=== PATIENT | female | born 1945 | race Caucasian/White ===

== ENCOUNTER 2019-10-16 13:40 | Outpatient (CLI) | payer MEDICARE, SELFPAY ==
--- NOTE | ~2019-10-16 | CT_ITS ---
EXAMINATION: CT abdomen pelvis w con DATE: 10/16/2019 14:36 INDICATION: Low abdominal pain for months TECHNIQUE: Computed tomography (CT) of the abdomen and pelvis was performed with 100 cc Omnipaque 350 intravenous contrast. Automated exposure control and iterative reconstruction technique were employe d. Exam dose: 619.06 mGy-cm total exam DLP. COMPARISON: 11/26/2011 CT abdomen pelvis FINDINGS: There is focal peripheral bronchiectasis at the lateral base of the lingula. The lung bases are clear of infiltrate or consolidation. Fat-containing small medial right diaphragmatic Bochdalek hernia. Normal heart size. No pericardial or pleural effusion. Hepatic steatosis. No hepatic, splenic, pancreatic, adrenal or renal space-occupying mass lesion is d etected. Normal caliber of the abdominal aorta. No intraperitoneal or retroperitoneal or pelvic mass lesion or adenopathy or ascites. Normal appendix. No bowel obstruction, bowel wall thickening, pneumatosis or intraperitoneal free air. There is divert iculosis of the sigmoid colon; no CT evidence of diverticulitis. Normal caliber of the abdominal aorta. No intraperitoneal or retroperitoneal or pelvic mass lesion or adenopathy or ascites. Retroverted uterus. Urinary bladder is unremarkable. There is severe degenerative disease at L2-3, L4-5 and L5-S1 and moderate degenerative disease at L3- 4. IMPRESSION: Hepatic steatosis Diverticulosis of the sigmoid colon; no CT evidence of diverticulitis Reviewed, dictated and finalized at Location A. Reviewed, dictated and finalized at location A.
[2019-10-16 14:28] LABS: Estimated Glomerular Filt Rate > 60
== END 2019-10-16 13:41 | disposition home or self-care (01) ==
PROVIDERS: PCP Family Medicine; Visit Provider Physician Assistant
DX: R10.9 Unspecified abdominal pain (principal); R19.7 Diarrhea, unspecified; K76.0 Fatty (change of) liver, not elsewhere classified; K57.90 Diverticulosis of intestine, part unspecified, without perforation or abscess without bleeding
CPT/HCPCS: 36415; 74177; Q9967

== ENCOUNTER 2020-01-16 14:45 | Emergency (ER) | payer MEDICARE, SELFPAY ==
--- NOTE | ~2020-01-16 | CT_ITS ---
EXAMINATION: CT brain wo con DATE: 01/16/2020 15:52 INDICATION: Head injury. Headache. TECHNIQUE: Computed tomography (CT) of the head was performed without intravenous contrast. The mA wa s adjusted according to patient size. Iterative reconstruction technique was employed. The dose-lengt h product was 605.33 mGy-cm. COMPARISON: None FINDINGS: There is no intracranial hemorrhage, acute infarction, or abnormal intracranial mass lesion . The ventricles are normal in size. There is mild mucosal thickening in the paranasal sinuses. The o rbits are normal. The mastoid air cells are normal. IMPRESSION: 1. Normal brain. Reviewed, dictated and finalized at location B. LEAF READER IMPRESSION: 1. Normal brain.
[2020-01-16 14:54] VITALS: BP 130/78; PULSE 65; RESP 18; TEMP 35.8; O2SAT 99
--- NOTE | 2020-01-16 15:03 | PC.NURSE ---
Addendum entered by Lobo Kellogg RN 01/16/20 15:04: Isidro Garrett RN, made aware of order for head CT. Pt returns to waiting room pending open room. Original Note: Spoke with Dr. Schreiber regarding patient complaint of worsening headache after striking head in a fall on wednesday. Verbal order received for head CT received.
--- NOTE | 2020-01-16 18:35 | ED.GENADULT ---
HPI - General Adult General Chief complaint: Headache Stated complaint: fall, head injury Time Seen by Provider: 01/16/20 18:31 Source: RN notes reviewed History of Present Illness HPI narrative: Patient presents to emergency department from home for headache. Patient states that 3 days ago she fell coming down the stairs striking her left forehead on the door frame. States she did not have any loss of consciousness at that time but did have swelling ecchymosis to left forehead that is since moved down to around her left eye. States today she began to develop mild frontal headache became concerned since she had fallen and came to the ED for further evaluation. She states her headache is currently a 2 out of 10 to take ibuprofen or Aleve for the headache she denies any neck pain denies any vision changes numbness or tingling in extremities or any other symptoms. Patient states she does take a baby aspirin a day but denies any other blood thinner use patient states she is concerned she could have intracranial hemorrhage and also brought her to the emergency department Related Data Home Medications Medication Instructions Recorded Confirmed alendronate 70 mg tablet 70 mg PO WEEKLY 07/24/19 11/27/19 aspirin 81 mg tablet,delayed 81 mg PO DAILY 07/24/19 11/27/19 release cholecalciferol (vitamin D3) 50 50 mcg PO DAILY 07/24/19 11/27/19 mcg (2,000 unit) capsule multivitamin 1 tablet PO DAILY 07/24/19 11/27/19 Allergies Allergy/AdvReac Type Severity Reaction Status Date / Time montelukast Allergy Unknown Nausea Verified 01/16/20 18:29 prednisone Allergy Unknown Flush Verified 01/16/20 18:29 purple rxn Review of Systems Review of Systems: Narrative: Gen.: Denies fevers or chills Eyes: Denies eye pain or visual change ENT: Denies congestion Respiratory: Denies shortness of breath or cough CV: Denies chest pain or palpitations GI: Denies abdominal pain nausea, emesis or diarrhea denies burning, urgency, frequency or hematuria Musculoskeletal: Denies back pain or muscle pain Neuro: Denies numbness, tingling, reports headache Skin: Denies rash Except as documented, all other systems reviewed and negative PMFSH Past Medical History Medical History (Updated 01/16/20 @ 18:38 by Alex Macias DO) Hypothyroidism (acquired) Surgical History Surgical History H/O breast biopsy Hx of tubal ligation Family History Family History Father Hypertension Mother Hypertension Grandparent Cerebrovascular accident Carcinoma of colon, Onset Age: 58 Social History Social History Smoking status: Never smoker Alcohol intake: never Gender identity (if verbalized by the patient): Female Exam Narrative: Exam Narrative: APPEARANCE: No acute distress, nontoxic, resting in bed EYES: EOMI, PERRL HEENT: Normocephalic, mild swelling ecchymosis over the left forehead over the eyebrow with mild ecchymosis in the inferior and superior orbit nontender to palpation, no step-off, TMs clear bilaterally nares patent oromucosa moist Neck: Supple, nontender to palpation full range of motion without pain RESPIRATORY: No respiratory distress Clear to auscultation bilaterally with no rhonchi wheezing or rales. CARDIOVASCULAR: Regular rate and rhythm without murmurs rubs or gallops. ABDOMINAL: Soft, nontender, nondistended, no rebound or guarding MUSCULOSKELETAl: Moves all extremities. No clubbing, cyanosis or edema. NEURO: Awake and alert x 4. Following commands, speech normal, no focal deficits SKIN:: Warm, dry. No rashes lesions or abrasions PSYCHIATRIC: Normal affect/mood, Course Course Emergency Course: Discussed with patient results of workup and diagnosis. Discussed need for follow-up with primary care, proper use of medication, and reasons to return
[2020-01-16] MEDS: ACETAMINOPHEN 500 MG TABLET 1000 MG PO (18:50)
[2020-01-16 18:58] VITALS: BP 127/70; PULSE 70; RESP 12; O2SAT 99
== END 2020-01-16 18:58 | disposition home or self-care (01) ==
LOC: ANHED 18:41
PROVIDERS: Emergency Provider Emergency Medicine; PCP Family Medicine
DX: S00.83XA Contusion of other part of head, initial encounter (principal); E03.9 Hypothyroidism, unspecified; W10.9XXA Fall (on) (from) unspecified stairs and steps, initial encounter
CPT/HCPCS: 70450; 99284; A9270

== ENCOUNTER 2020-02-27 08:35 | Outpatient (NON) | payer MEDICARE, SELFPAY ==
[2020-02-27 18:19] LABS: SARS-CoV-2 RNA PCR Negative
== END 2020-02-27 08:36 ==
PROVIDERS: PCP Family Medicine; Visit Provider Family Medicine
DX: R53.83 Other fatigue (principal); R51.9 Headache, unspecified; Z20.828 Contact with and (suspected) exposure to other viral communicable diseases
CPT/HCPCS: 87635; C9803; U0003

== ENCOUNTER 2020-04-16 15:53 | Outpatient (CLI) | payer MEDICARE, SELFPAY ==
--- NOTE | ~2020-04-16 | MM_ITS ---
EXAMINATION: MM screening sandy BI w natalia HISTORY: Screening mammogram TECHNIQUE: Craniocaudal and mediolateral oblique 3-D tomosynthesis images were obtained and synthetic 2-D images were generated. CAD analysis was submitted and interpreted. COMPARISON: 03/13/2019, 02/08/2018, 12/03/2016 bilateral digital screening mammogram examinations BREAST PARENCHYMAL COMPOSITION: There are scattered areas of fibroglandular density. FINDINGS: There is a biopsy marker on the right. History of prior bilateral benign breast biopsies. T here is no evidence of suspicious mass, calcification, or architectural distortion to suggest maligna ncy in either breast. There has been no suspicious interval change. IMPRESSION: 1. No mammographic evidence of malignancy. 2. Recommend routine screening mammography in one year. BI-RADS Category 1: Negative...... Reviewed, dictated and finalized at location A. TROTYPER
== END 2020-04-16 15:54 | disposition home or self-care (01) ==
PROVIDERS: Family Provider Family Medicine; PCP Family Medicine; Visit Provider Physician Assistant
DX: Z12.31 Encounter for screening mammogram for malignant neoplasm of breast (principal)
CPT/HCPCS: 77063; 77067

== ENCOUNTER → 2021-01-22 02:33 | Outpatient (CLI) | payer MEDICARE, SELFPAY ==
[2021-01-22 18:47] LABS: SARS-CoV-2 RNA PCR Negative
== END ==
PROVIDERS: PCP Family Medicine; Visit Provider Family Medicine
DX: R05.9 Cough, unspecified (principal); Z20.822 Contact with and (suspected) exposure to COVID-19
CPT/HCPCS: C9803; U0003; U0005

== ENCOUNTER 2021-01-24 10:02 | Emergency (ER) | payer MEDICARE, SELFPAY ==
--- NOTE | ~2021-01-24 | XR_ITS ---
EXAMINATION: XR chest 2V DATE: 01/24/2021 10:22 INDICATION: Cough and wheezing and shortness of breath. TECHNIQUE: Frontal and lateral views of the chest were obtained. COMPARISON: Chest 2 views 03/01/2017, CT abdomen and pelvis 10/16/2019 FINDINGS: There is chronic mild scarring at the lung apices. No pleural effusion or pneumothorax. The heart size is normal. There are prominent paracardial fat pads. IMPRESSION: 1. Stable mild scarring at the lung apices. Reviewed, dictated and finalized at location A. TAIN BRUSH ASSEMBLER
--- NOTE | 2021-01-24 10:04 | ED.URI ---
HPI - URI/Sore Throat General Chief Complaint: Upper Respiratory Infection Stated Complaint: cough/wheezing Time Seen by Provider: 01/24/21 10:10 Source: patient, RN notes reviewed and old records reviewed Mode of arrival: ambulatory Limitations: no limitations History of Present Illness HPI Narrative: 75-year-old female presents to the [facility] with complaints of cough, wheezing and chest congestion since Wednesday, 5 days ago. States has had the same. Has had a history of bronchitis and pneumonia. Denies chest pain or abdominal pain. Reports taking ibuprofen 1 time yesterday. No other treatment prior to arrival. Denies taking her blood pressure medication today. Discussed with patient she needs to follow-up with her primary for blood pressure check in today medication daily. MD elicited complaint: cough Related Data Home Medications Medication Instructions Recorded Confirmed alendronate 70 mg tablet 70 mg PO WEEKLY 07/24/19 01/24/21 aspirin 81 mg tablet,delayed 81 mg PO DAILY 07/24/19 01/24/21 release cholecalciferol (vitamin D3) 50 50 mcg PO DAILY 07/24/19 01/24/21 mcg (2,000 unit) capsule multivitamin 1 tablet PO DAILY 07/24/19 01/24/21 levothyroxine 100 mcg PO DAILY 01/24/21 01/24/21 Allergies Allergy/AdvReac Type Severity Reaction Status Date / Time montelukast Allergy Unknown Nausea Verified 11/25/20 09:22 prednisone Allergy Unknown Flush Verified 11/25/20 09:22 purple rxn Review of Systems Review of Systems: All systems reviewed & are unremarkable except as noted in HPI and below Constitutional: Constitutional: Reports no additional constitutional complaints Eyes: Eyes: Reports no additional eye complaints ENT: Reports system reviewed and no additional complaints, except as documented and Denies sore throat Cardiovascular: Cardiovascular: Reports no additional cardiovascular complaints, Denies chest pain, Denies rapid heart rate, Denies radiating jaw, neck or arm pain and Denies slow heart rate Respiratory: Respiratory: Reports as per HPI, Reports cough, Reports dyspnea and Reports wheezing Gastrointestinal: Gastrointestinal: Reports no additional gastrointestinal complaints, Denies abdominal pain, Denies nausea and Denies vomiting Musculoskeletal: Musculoskeletal: Reports no additional musculoskeletal complaints Integumentary/Breasts: Skin/Breast: Reports system reviewed and no additional complaints, except as docu Neurologic: Reports system reviewed and no additional complaints, except as documented Psychiatric: Psychiatric: Reports no additional psychiatric complaints Allergic/Immunologic: Allergic/Immunologic: Reports no additional allergic/immunologic complaints PMFSH Past Medical History Medical History (Updated 01/24/21 @ 10:52 by Effie Orosco) Essential (primary) hypertension Gastro-esophageal reflux disease without esophagitis Hypothyroidism (acquired) Vitamin D deficiency, unspecified Surgical History Surgical History H/O breast biopsy Hx of tubal ligation Family History Family History Father Hypertension Mother Hypertension Grandparent Cerebrovascular accident Carcinoma of colon, Onset Age: 58 Social History Social History Alcohol intake: never Gender identity (if verbalized by the patient): Female Comments At the time of my signature, I reviewed and agree with the nursing past medical, surgical, social, and family history. There is no relevant family history pertinent to the patient complaint. Exam Const: General: alert and ill appearing acutely Nutritional Appearance: well nourished Orientation/consciousness: patient oriented x3 Limitations: no limitations HENMT: Head: normal to inspection Eyes: Pupils: Equal, round and reactive pupils present Neck: Neck: normal visual ins
[2021-01-24 10:12] VITALS: BP 152/90; PULSE 102; RESP 16; TEMP 36.3; O2SAT 97
== END 2021-01-24 11:03 | disposition home or self-care (01) ==
PROVIDERS: Emergency Provider Nurse Practitioner; PCP Family Medicine
DX: J40 Bronchitis, not specified as acute or chronic (principal); I10 Essential (primary) hypertension; K21.9 Gastro-esophageal reflux disease without esophagitis; E03.9 Hypothyroidism, unspecified; E55.9 Vitamin D deficiency, unspecified; Z79.82 Long term (current) use of aspirin
CPT/HCPCS: 71046; 99213; G0463

== ENCOUNTER → 2021-03-05 02:28 | Outpatient (CLI) | payer MEDICARE, SELFPAY ==
[2021-03-06 02:21] LABS: SARS-CoV-2 RNA PCR Negative
== END ==
PROVIDERS: PCP Family Medicine; Visit Provider Physician Assistant Medical
DX: R05.9 Cough, unspecified (principal); R09.89 Other specified symptoms and signs involving the circulatory and respiratory systems; J02.9 Acute pharyngitis, unspecified; Z20.822 Contact with and (suspected) exposure to COVID-19
CPT/HCPCS: C9803; U0003; U0005

== ENCOUNTER 2021-03-13 10:23 | Emergency (ER) | payer MEDICARE, SELFPAY ==
[2021-03-13] VITALS (10 sets, daily range): BP systolic 139–149; BP diastolic 84–94; PULSE 47–87; RESP 11–25; TEMP 35.9; O2SAT 96–100
--- NOTE | ~2021-03-13 | CT_ITS ---
EXAMINATION: CTA chest PE protocol DATE: 03/13/2021 14:43 INDICATION: Chest tightness, shortness of breath. Elevated d-dimer. TECHNIQUE: Computed tomography angiography (CTA) of the chest was performed with 100 mL Omnipaque-350 intravenous contrast timed to evaluate the pulmonary arteries. Coronal maximum intensity projection 3D-reconstructions were created by the technologist. Automated exposure control and iterative reconst ruction technique were employed. Exam dose: 445.66 mGy-cm total exam DLP. COMPARISON: 03/13/2021 2 view chest FINDINGS: There is diagnostic contrast enhancement of the pulmonary arteries and no evidence of pulmo nary embolism. No thoracic aortic aneurysm or dissection. There is aortic and mild great vessel calcification. No hilar or mediastinal mass lesion or lymphadenopathy is detected. Normal heart size. No pericardial or pleural effusion. Bilateral apical scarring. Mild bilateral lower lobe dependent atelectasis. No pulmonary consolidatio n or mass lesion is evident. Small posteromedial right fat-containing foramen of Bochdalek hernia. Multilevel degenerative disc disease of the cervical spine including severe degenerative disc disease at C4-5 and C5-6 and moderately severe degenerative disc disease at C6-7. Diffuse osteopenia. IMPRESSION: No evidence of pulmonary embolism Reviewed, dictated and finalized at Location A. Reviewed, dictated and finalized at location A. ULTING NETWORKING ENGINEER
--- NOTE | ~2021-03-13 | XR_ITS ---
EXAMINATION: XR chest 2V DATE: 03/13/2021 11:40 INDICATION: Shortness of breath, cough and congestion TECHNIQUE: PA and lateral views of the chest were obtained. COMPARISON: Chest radiograph dated 01/24/2021 FINDINGS: Unchanged mild biapical pleural-parenchymal scarring. Minimal lingular atelectasis along side a small left paracardial fat pad. No new airspace opacities, pulmonary edema, pleural effusion or pneumothor ax. The cardiomediastinal silhouette is normal. Mild thoracic spondylosis. IMPRESSION: 1. No acute cardiopulmonary disease. Reviewed, dictated and finalized at location B. ARDER OPERATOR
--- NOTE | 2021-03-13 10:27 | ECG_ITS ---
Measurements Intervals [place] Rate: 63 P: 75 MA: 228 QRS: 5 QRSD: 66 T: 47 QT: 395 QTc: 406 Interpretive Statements SINUS RHYTHM WITH SINUS ARRHYTHMIA WITH FIRST DEGREE AV BLOCK LOW QRS VOLTAGE IN PRECORDIAL LEADS BORDERLINE R WAVE PROGRESSION, ANTERIOR LEADS INFERIOR INFARCT, AGE INDETERMINATE BASELINE ARTIFACT- I, II, AVR ABNORMAL ECG Electronically Signed On 03-13-2021 11:04:45 BARKEEPER by Junior Gill D.O.
--- NOTE | 2021-03-13 10:46 | PC.NURSE ---
Per vorb from Dr. Bach, no cardiac panel needed at this time. VORB, cxr, cbc, cmp, blood cult x 2 , abg on room air.
[2021-03-13 11:21] LABS: Basophils Absolute Auto 0.1 K/mm3 (0.0-0.1); Basophils Percent Auto 0.8 % (0.2-1.2); Eosinophils Absolute Auto 0.2 K/mm3 (0-0.3); Eosinophils Percent Auto 3.2 % (0-4.4); Hemoglobin 14.7 g/dL (12.0-15.0); Immature Granulocyte Absolute 0.02 K/mm3 (0.00-0.031); Immature Granulocyte Percent A 0.3 % (0-0.5); Lymphocytes Absolute Auto 1.54 K/mm3 (0.9-3.2); Lymphocytes Percent Auto 26.1 % (18.3-44.2); Mean Corpuscular HGB Conc 32.7 g/dl (32-36); Mean Corpuscular Hemoglobin 32.2 pg (26-34); Mean Corpuscular Volume 98.7 fl (80-100); Mean Platelet Volume 9.5 fl (7.4-10.4); Monocytes Absolute Auto 0.7 K/mm3 (0.1-0.6); Monocytes Percent Auto 12.4 % (2.6-8.5); Neutrophils Absolute Auto 3.4 K/mm3 (1.3-6.7); Neutrophils Percent Auto 57.2 % (45.5-73.1); Platelet Count Result 267 k/mm3 (150-375); Red Blood Count 4.56 M/mm3 (4.2-5.4); Red Cell Distribution Width 12.1 % (11.5-14.5); White Blood Count 5.9 K/mm3 (4.5-10.0)
[2021-03-13 11:29] LABS: Base Excess ABG -3.6 mEq/l (+/-2.0); Carboxyhemoglobin 0.3 % THb (0-2.0); Device ROOM AIR; Fractional Inspired Oxygen 21 %; HCO3 ABG 19.8 mEq/l (22.0-26.0); Methemoglobin ABG 0.1 %THb (0-1.5); Modified Allen's Test Pass; Oxygen Content ABG 19.8 %vol (16.0-22.0); Oxygen Saturation ABG 95.1 % (95.0-100.0); Oxyhemoglobin 93.4 % THb (90.0-100.0); PCO2 ABG 31.6 mmHg (35.0-45.0); PO2 ABG 72.9 mmHg (80.0-100.0); PO2 FiO2 Ratio Arterial Blood 3.47 %; Reduced Hemoglobin 6.2 %THb (0-5.0); Site Drawn RIGHT RADIAL; Total Hemoglobin 15.1 g/dL (12.0-18.0); pH ABG 7.415 (7.350-7.450)
[2021-03-13 11:32] LABS: Alanine Aminotransferase 23 U/L (4-35); Albumin Level 4.2 g/dL (3.5-5.1); Alkaline Phosphatase 106 U/L (38-126); Anion Gap 14 mmol/L (8-16); Aspartate Amino Transferase 26 U/L (14-36); Bilirubin,Total 0.7 mg/dL (0.2-1.3); Blood Urea Nitrogen 18 mg/dL (7-17); Calcium 9.6 mg/dL (8.4-10.2); Carbon Dioxide 20 mmol/L (22-30); Chloride 105 mmol/L (98-107); Estimated CRCL calculation 45 ml/min; Estimated Glomerular Filt Rate 54; Glucose 133 mg/dL (65-110); Potassium 3.6 mmol/L (3.4-5.0); Sodium 139 mmol/L (137-145)
--- NOTE | 2021-03-13 12:28 | ED.SOB ---
HPI - SOB/Dyspnea General Chief Complaint: Shortness of Breath/Dyspnea Stated Complaint: Shortness of breath, chest tightness Time Seen by Provider: 03/13/21 11:57 Source: patient, RN notes reviewed and old records reviewed Mode of arrival: ambulatory Limitations: no limitations History of Present Illness HPI Narrative: This is a 75 year old female with history of hypertension who presents for evaluation of cough and shortness of breath. She developed dry cough on March 04. She was tested for covid on March 05 and it was negative. She initially felt better but she started to feel sick again on March 08. She reports her doctor prescribed Levaquin 750 mg and inhaler on 03/08/21. She felt well yesterday and her states she may have overworked yesterday. This morning she is having worsening dry cough, upper back discomfort and shortness of breath. Her upper back discomfort that is intermittent. She does not know any alleviating or exacerbating factors. She denies nausea, vomiting, fever, or chills. She denies sick contacts. She reports intermittent chest tightness. Related Data Home Medications Medication Instructions Recorded Confirmed alendronate 70 mg tablet 70 mg PO WEEKLY 07/24/19 01/24/21 aspirin 81 mg tablet,delayed 81 mg PO DAILY 07/24/19 01/24/21 release cholecalciferol (vitamin D3) 50 50 mcg PO DAILY 07/24/19 01/24/21 mcg (2,000 unit) capsule multivitamin 1 tablet PO DAILY 07/24/19 01/24/21 levothyroxine 100 mcg PO DAILY 01/24/21 01/24/21 Allergies Allergy/AdvReac Type Severity Reaction Status Date / Time montelukast Allergy Unknown Nausea Verified 11/25/20 09:22 prednisone Allergy Unknown Flush Verified 11/25/20 09:22 purple rxn Review of Systems Review of Systems: All systems reviewed & are unremarkable except as noted in HPI and below PMFSH Past Medical History Medical History (Updated 03/13/21 @ 15:34 by Karen Walters MD) Essential (primary) hypertension Gastro-esophageal reflux disease without esophagitis Hypothyroidism (acquired) Vitamin D deficiency, unspecified Surgical History Surgical History H/O breast biopsy Hx of tubal ligation Family History Family History Father Hypertension Mother Hypertension Grandparent Cerebrovascular accident Carcinoma of colon, Onset Age: 58 Social History Social History Alcohol intake: never Gender identity (if verbalized by the patient): Female Exam Const: General: no acute distress and alert Orientation/consciousness: patient oriented x3 Eyes: EOM: EOMs intact bilaterally Chest: Chest palpation & inspection: normal inspection of the chest Resp: Effort & Inspection: normal respiratory effort and no retractions Auscultation: clear to auscultation bilaterally Cardio: Rate: regular rate Rhythm: regular rhythm Heart sounds: no murmurs GI: GI Palp: Yes Soft to palpation, No Tenderness to palpation present (GI) and No Guarding due to palpation present (GI) Auscultation: normal bowel sounds Skin: General skin exam: normal color Rashes: no rashes Neuro: General: patient oriented x3, moves all extremities and CN's II-XI intact bilaterally Psych: Mental Status: mental status grossly normal Affect: normal affect Course Reevaluation(s) Reevaluation #1: I discussed with patient labs and CT . No NM or PE or pneumonia. She will continue symptomatic treatment Date: 03/13/21 Time: 15:27 Vital Signs Vital signs: Vital Signs Temperature 96.7 F L 03/13/21 10:27 Pulse Rate 79 03/13/21 10:27 Respiratory Rate 22 H 03/13/21 10:27 Blood Pressure 149/89 H 03/13/21 10:27 Pulse Oximetry 100 03/13/21 10:27 Temperature 96.7 F L 03/13/21 10:27 Pulse Rate 84 03/13/21 15:55 Respiratory Rate 15 03/13/21 15:55 Blood Pressu
[2021-03-13 13:42] LABS: Troponin I < 0.012 ng/mL (0.000-0.034)
[2021-03-13 14:00] LABS: SARS-CoV-2 RNA PCR Negative
[2021-03-13 14:21] LABS: D Dimer 0.51 ug/mL (<0.48)
== END 2021-03-13 15:57 | disposition home or self-care (01) ==
PROVIDERS: Emergency Medicine; Emergency Provider General Practice; PCP Family Medicine
DX: R05.9 Cough, unspecified (principal); R06.00 Dyspnea, unspecified; Z20.822 Contact with and (suspected) exposure to COVID-19; I10 Essential (primary) hypertension; K21.9 Gastro-esophageal reflux disease without esophagitis; E03.9 Hypothyroidism, unspecified; E55.9 Vitamin D deficiency, unspecified; R94.31 Abnormal electrocardiogram [ECG] [EKG]
CPT/HCPCS: 36415; 36600; 71046; 71275; 80053; 82375; 82805; 83050; 84484; 85025; 85380; 87040; 87804; 93005; 99284; C9803; Q9967; U0003; U0005

== ENCOUNTER → 2021-05-14 14:07 | Outpatient (CLI) | payer MEDICARE, SELFPAY ==
--- NOTE | ~2021-05-14 | MM_ITS ---
EXAMINATION: MM screening sandy BI w natalia HISTORY: Screening TECHNIQUE: Craniocaudal and mediolateral oblique 3-D tomosynthesis images were obtained and synthetic 2-D images were generated. CAD analysis was submitted and interpreted. COMPARISON: Comparison to multiple prior studies sequentially, with oldest reviewed study dated 11/05. BREAST PARENCHYMAL COMPOSITION: There are scattered areas of fibroglandular density. FINDINGS: There is no evidence of suspicious mass, calcification, or architectural distortion to sugg est malignancy in either breast. There has been no suspicious interval change. IMPRESSION: 1. No mammographic evidence of malignancy. 2. Recommend routine screening mammography in one year. BI-RADS Category 1: Negative Reviewed, dictated and finalized at location A. NESS SOLUTIONS ANALYST
== END ==
PROVIDERS: PCP Physician Assistant; Visit Provider Physician Assistant
DX: Z12.31 Encounter for screening mammogram for malignant neoplasm of breast (principal)
CPT/HCPCS: 77063; 77067

== ENCOUNTER → 2021-05-20 14:36 | Outpatient (CLI) | payer MEDICARE, SELFPAY ==
--- NOTE | ~2021-05-20 | XR_ITS ---
EXAMINATION: XR shoulder RT min 2V DATE: 05/20/2021 14:56 INDICATION: Right shoulder pain TECHNIQUE: AP internally and externally rotated, AP oblique externally rotated and axillary views of the right shoulder were obtained. COMPARISON: None FINDINGS: Normal alignment. No fracture. Glenohumeral joint is normal. Moderate acromioclavicular osteoarthrit is. Small focus of amorphous calcification along the posterior aspect of the greater tuberosity consi stent with calcific tendinitis likely of the posterior infraspinatus tendon. Soft tissues are unremar kable. Right apical pleural-parenchymal scarring. Increased interstitial pattern at the right lower l riddhi zone suspicious for mild pulmonary edema with differential including atelectasis or pneumonia. IMPRESSION: 1. Small focus of calcific tendinitis of the distal right infraspinatus tendon. 2. Interstitial opacities at the right lung base which could represent mild pulmonary edema, atelecta sis or pneumonia. Reviewed, dictated and finalized at location A. IMPRESSION: 1. Small focus of calcific tendinitis of the distal right infraspinatus tendon. 2. Interstitial opacities at the right lung base which could represent mild pul monary edema, atelectasis or pneumonia.
--- NOTE | ~2021-05-20 | XR_ITS ---
XR_CERV2-3V_CR DATE: 05/20/2021 15:16 INDICATION: Right shoulder pain TECHNIQUE: Standing AP, lateral, swimmer's, open-mouth views COMPARISON: None FINDINGS: C1 and C2 are normally aligned and the odontoid process is intact. There is mild degenerative disc disease at C2-3. There is 3 mm anterolisthesis at C3-4. There is severe degenerative disc disease at C4-5, C5-6 and moderately prominent degenerative disc di sease at C6-7. There is prominent uncovertebral joint spurring from C4-5 through C6-7. No fracture or dislocation, locked facet or prevertebral soft tissue swelling is detected. IMPRESSION: 3 mm anterolisthesis C3-4 Multilevel degenerative disc disease, most severe at C4-5 and C5-6 Uncovertebral joint spurring in the mid and lower cervical spine Reviewed, dictated and finalized at Location A. Reviewed, dictated and finalized at location A.
== END ==
PROVIDERS: Visit Provider Physician Assistant
DX: M25.511 Pain in right shoulder (principal); M43.12 Spondylolisthesis, cervical region; M50.322 Other cervical disc degeneration at C5-C6 level; M77.8 Other enthesopathies, not elsewhere classified; M65.811 Other synovitis and tenosynovitis, right shoulder; R91.8 Other nonspecific abnormal finding of lung field
CPT/HCPCS: 72040; 73030

== ENCOUNTER → 2021-06-18 11:55 | Outpatient (CLI) | payer MEDICARE, SELFPAY ==
--- NOTE | ~2021-06-18 | XR_ITS ---
EXAMINATION: XR chest 2V DATE: 06/18/2021 12:17 INDICATION: Atelectasis. Cough. TECHNIQUE: Frontal and lateral views of the chest were obtained. COMPARISON: Chest 2 views 03/13/21, chest CT 03/13/2021 FINDINGS: There is mild scarring at the lung apices. There is mild atelectasis in lingula. No pleural effusion or pneumothorax. The heart size is normal. There are prominent paracardial fat pads. IMPRESSION: 1. Mild atelectasis in lingula and stable mild scarring at the lung apices. Reviewed, dictated and finalized at location A.
== END ==
PROVIDERS: Visit Provider Physician Assistant
DX: J98.11 Atelectasis (principal)
CPT/HCPCS: 71046

== ENCOUNTER 2021-06-27 01:06 | Day surgery (SDC) | payer MEDICARE, SELFPAY ==
[2021-06-11 14:50] VITALS: BMI 28.3
[2021-06-27 08:18] VITALS: BP 122/81; PULSE 85; RESP 18; TEMP 35.7; O2SAT 97; BMI 29.2
[2021-06-27] MEDS: LACTATED RINGERS 1,000 ML 150 ML IV CONT (08:40)
--- NOTE | 2021-06-27 08:44 | WPDGICN ---
Assessment and Plan Assessment and plan (1) History of colon polyps: Code(s): Z86.010 - Personal history of colonic polyps Status: Acute Assessment and Plan: Patient has a distant history of colon polyps. Plan is for surveillance colonoscopy at intervals in the future. Further recommendations will be given after colonoscopy. GI Consult Note Consult date/time: 06/27/21 08:44 HPI: Merissa Burciaga is a 76 year old female Presents for screening colonoscopy. Patient has a distant history of colon polyps. She reports that her current weight appetite and bowel movements are normal. She denies abdominal pain. She has had no bleeding. Family history is Significant a grandparent had colon cancer.. Patient presents today for neoplasia screening colonoscopy. Review of Systems Review of Systems: All systems reviewed & are unremarkable except as noted in HPI and below PMFSH Past Medical History Medical History Essential (primary) hypertension Gastro-esophageal reflux disease without esophagitis Vitamin D deficiency, unspecified Surgical History Surgical History H/O breast biopsy Hx of tubal ligation Family History Family History Father Hypertension Mother Hypertension Grandparent Cerebrovascular accident Carcinoma of colon, Onset Age: 60 Social History Social History Smoking status: Never smoker Alcohol intake: current Drinks per week: 1 Substance use type: does not use Living arrangements: alone Gender identity (if verbalized by the patient): Female Spiritual care concerns: No Meds Home Medications and Allergies Home Medications Medication Instructions Recorded Confirmed Type cholecalciferol (vitamin D3) 50 50 mcg PO DAILY 07/24/19 06/27/21 History mcg (2,000 unit) capsule multivitamin 1 tablet PO DAILY 07/24/19 06/27/21 History atenolol 25 mg tablet 25 mg PO DAILY #90 tablet 08/27/20 06/27/21 Rx atorvastatin 20 mg tablet 20 mg PO DAILY #90 tablet 12/20/20 06/27/21 Rx levothyroxine 100 mcg PO DAILY 01/24/21 06/27/21 History clobetasol 0.05 % topical cream See Rx Instructions .ROUTE 01/25/22 04/22/22 Rx .COMPLEX #15 g fluticasone propionate 50 2 spray INTRANASAL DAILY #50 ml 04/01/21 06/27/21 Rx mcg/actuation nasal spray,suspension cetirizine [Zyrtec] 10 mg PO DAILY 06/11/21 06/27/21 History Allergies Allergy/AdvReac Type Severity Reaction Status Date / Time prednisone Allergy Unknown Flush Verified 06/27/21 08:31 purple rxn Vital Signs Vital Signs - 24 hr 06/27/21 08:18 Temperature 96.3 F L Pulse Rate 85 Respiratory Rate 18 Blood Pressure 122/81 Pulse Oximetry 97 Exam Narrative: Physical exam reveals patient to be alert. Vital signs stable. HEENT exam is unremarkable. Patient is anicteric. Lungs are clear to auscultation and percussion. Heart is without murmur or extra sounds. Abdominal exam bowel sounds present soft nontender with no organomegaly. Digital external rectal exam is normal.
--- NOTE | 2021-06-27 09:14 | P.PNAN_ITS ---
Anes - Initial Pre Proc Eval Procedure: Operation Date: 06/27/21 09:30 Proposed Procedures p Screening Colonoscopy - Shady Owens MD Date/Time: 06/27/21 09:14 Surgeon: Shady Owens MD Pre Op Diagnosis: hx of colon polyps Patient Data Age: 76 Gender: F Height: 1.65 m Weight: 79.6 kg Last Vital Signs Temp 96.3 F L 06/27/21 08:18 Pulse 85 06/27/21 08:18 Resp 18 06/27/21 08:18 BP 122/81 06/27/21 08:18 Pulse Ox 97 06/27/21 08:18 Allergies Allergy/AdvReac Type Severity Reaction Status Date / Time prednisone Allergy Unknown Flush Verified 06/27/21 08:31 purple rxn Home Medications Medication Instructions Recorded Confirmed Type cholecalciferol (vitamin D3) 50 50 mcg PO DAILY 07/24/19 06/27/21 History mcg (2,000 unit) capsule multivitamin 1 tablet PO DAILY 07/24/19 06/27/21 History atenolol 25 mg tablet 25 mg PO DAILY #90 tablet 08/27/20 06/27/21 Rx atorvastatin 20 mg tablet 20 mg PO DAILY #90 tablet 12/20/20 06/27/21 Rx levothyroxine 100 mcg PO DAILY 01/24/21 06/27/21 History clobetasol 0.05 % topical cream See Rx Instructions .ROUTE 04/01/21 06/27/21 Rx .COMPLEX #15 g fluticasone propionate 50 2 spray INTRANASAL DAILY #50 ml 04/01/21 06/27/21 Rx mcg/actuation nasal spray,suspension cetirizine [Zyrtec] 10 mg PO DAILY 06/11/21 06/27/21 History Patient hx anesthesia problems: none Family hx anesthesia problems: none Results Review: All pre-operative results and documents have been reviewed as part of the pre-operative evaluation. [facility] Past Medical History Medical History Essential (primary) hypertension Gastro-esophageal reflux disease without esophagitis Vitamin D deficiency, unspecified Surgical History Surgical History H/O breast biopsy Hx of tubal ligation Family History Family History Father Hypertension Mother Hypertension Grandparent Cerebrovascular accident Carcinoma of colon, Onset Age: 60 Social History Social History Smoking status: Never smoker Alcohol intake: current Drinks per week: 1 Substance use type: does not use Living arrangements: alone Gender identity (if verbalized by the patient): Female Spiritual care concerns: No Anes - Eval Final PreProcedure Day of Procedure 06/27/21 09:14 Patient weight: obese Heart: regular rate and rhythm Lungs: clear to auscultation Airway: Mallampati scale class II Neurological: alert and oriented Last oral intake: >/= 8 hours ASA classification: III Emergent: no Anesthetic plan: proceed Anesthesia type and monitoring: general GIVS and standard monitoring Results Review: All pre-operative results and documents have been reviewed as part of the pre-operative evaluation. Informed Consent: The patient's anesthetic plan and its attendant risks and benefits were discussed with the patient/family/POA. Questions were solicited and answers provided to the satisfaction of the patient/family/POA.
[2021-06-27 09:40] VITALS: BP 127/80; PULSE 71; RESP 20; O2SAT 97
--- NOTE | 2021-06-27 09:41 | SUR.OPER ---
RN made Dr. Owens aware that 2 ascending colon polyps were collected, but only 1 descending colon polyp was collected. Dr. Owens stated he 'pulverized the other descending colon polyp'.
[2021-06-27 09:50] VITALS: BP 143/88; PULSE 59; RESP 23; O2SAT 98
[2021-06-27 09:57] VITALS: BP 156/91; PULSE 58; RESP 18; O2SAT 98
== END 2021-06-27 10:05 | disposition home or self-care (01) ==
PROVIDERS: PCP Family Medicine; Visit Provider Internal Medicine Gastroenterology
PROC: 0DJD8ZZ Inspection of Lower Intestinal Tract, Via Natural or Artificial Opening Endoscopic (ICD-10-PCS; CPT 45378; principal; 2021-06-27 09:30)
DX: Z12.11 Encounter for screening for malignant neoplasm of colon (principal); D12.2 Benign neoplasm of ascending colon; K64.8 Other hemorrhoids; K63.5 Polyp of colon; E03.9 Hypothyroidism, unspecified; I10 Essential (primary) hypertension; K21.9 Gastro-esophageal reflux disease without esophagitis; E55.9 Vitamin D deficiency, unspecified
CPT/HCPCS: 45385; 88305; J2704; J7120

== ENCOUNTER 2021-07-17 10:03 | Emergency (ER) | payer MEDICARE, SELFPAY ==
[2021-07-17 10:38] VITALS: BP 137/77; PULSE 73; RESP 20; TEMP 36.2; O2SAT 100
--- NOTE | 2021-07-17 10:45 | ED.URI ---
HPI - URI/Sore Throat General Chief Complaint: Upper Respiratory Infection Stated Complaint: Congestion,Cough Time Seen by Provider: 07/17/21 10:49 Source: patient, RN notes reviewed and old records reviewed Mode of arrival: ambulatory Limitations: no limitations History of Present Illness HPI Narrative: 76-year-old female presents to the [facility] with complaints of congestion and a cough since testing positive for COVID 2 weeks ago. Reports testing positive for COVID in 01 July with a Home test. Reports having very mild symptoms. Patient she has a history of bronchitis. Had a chest x-ray a month ago with similar symptoms which was negative for pneumonia Patient states an inhaler, (maybe proair) with her spacer works the best for her symptoms. States that she cannot take prednisone. Reports using her Flonase and Zyrtec daily. Patient reports being COVID vaccinated and boosted MD elicited complaint: cough Related Data Home Medications Medication Instructions Recorded Confirmed multivitamin 1 tablet PO DAILY 07/24/19 07/17/21 levothyroxine 100 mcg PO DAILY 01/24/21 07/17/21 cetirizine [Zyrtec] 10 mg PO DAILY 06/11/21 07/17/21 aspirin [Aspir-81] 81 mg PO DAILY 07/17/21 07/17/21 calcium carbonate-vitamin D3 1 tablet PO DAILY 07/17/21 07/17/21 [Cj-600 With Vitamin D] Allergies Allergy/AdvReac Type Severity Reaction Status Date / Time prednisone Allergy Unknown Flush Verified 07/17/21 11:03 purple rxn Review of Systems Review of Systems: All systems reviewed & are unremarkable except as noted in HPI and below Constitutional: Constitutional: Reports no additional constitutional complaints, Denies chills, Denies fever(s) and Denies headache(s) Eyes: Eyes: Reports no additional eye complaints ENT: Reports as per HPI, Denies vertigo, Denies dizziness, Denies headache(s), Denies nasal congestion and Denies sore throat Cardiovascular: Cardiovascular: Reports no additional cardiovascular complaints, Denies chest pain, Denies syncope, Denies rapid heart rate and Denies dyspnea Respiratory: Respiratory: Reports as per HPI, Reports chest congestion, Reports cough, Denies dyspnea and Denies wheezing Gastrointestinal: Gastrointestinal: Reports no additional gastrointestinal complaints, Denies abdominal pain, Denies diarrhea, Denies nausea and Denies vomiting Musculoskeletal: Musculoskeletal: Reports no additional musculoskeletal complaints and Denies numbness Integumentary/Breasts: Skin/Breast: Reports system reviewed and no additional complaints, except as docu Neurologic: Reports system reviewed and no additional complaints, except as documented, Denies vertigo, Denies dizziness, Denies syncope, Denies headache(s), Denies focal weakness and Denies numbness Psychiatric: Psychiatric: Reports no additional psychiatric complaints Allergic/Immunologic: Allergic/Immunologic: Reports no additional allergic/immunologic complaints and Denies wheezing PMFSH Past Medical History Medical History Essential (primary) hypertension Gastro-esophageal reflux disease without esophagitis Vitamin D deficiency, unspecified Surgical History Surgical History H/O breast biopsy Hx of tubal ligation Family History Family History Father Hypertension Mother Hypertension Grandparent Cerebrovascular accident Carcinoma of colon, Onset Age: 60 Social History Social History Smoking status: Never smoker Alcohol intake: current Drinks per week: 1 Substance use type: does not use Gender identity (if verbalized by the patient): Female Spiritual care concerns: No Comments At the time of my signature, I reviewed and agree with the nursing past medical, surgical, social, and family history. There is n
== END 2021-07-17 11:14 | disposition home or self-care (01) ==
PROVIDERS: Emergency Provider Nurse Practitioner; PCP Physician Assistant
DX: J40 Bronchitis, not specified as acute or chronic (principal); I10 Essential (primary) hypertension; K21.9 Gastro-esophageal reflux disease without esophagitis; E55.9 Vitamin D deficiency, unspecified; Z79.82 Long term (current) use of aspirin; Z86.16 Personal history of COVID-19
CPT/HCPCS: 99213; G0463

== ENCOUNTER 2022-02-03 17:45 | Emergency (ER) | payer MEDICARE, SELFPAY ==
[2022-02-03 18:27] VITALS: BP 147/93; PULSE 64; RESP 18; TEMP 36.3; O2SAT 97
--- NOTE | 2022-02-03 19:05 | ED.BACK ---
HPI - Back Pain/Injury General Chief Complaint: Back Pain/Injury Stated Complaint: Upper Back Pain Time Seen by Provider: 02/03/22 18:52 Source: patient Mode of arrival: ambulatory Limitations: no limitations History of Present Illness HPI Narrative: Patient presents today complaining of upper back pain that started suddenly today that she describes as, a different hurt than back pain she has felt in the past. She describes it as a dull ache. Denies radiation of the pain. Denies numbness or tingling in the extremities. Denies any loss of bowel or bladder control. Denies any injury or fall. Denies any urinary symptoms, abdominal pain, nausea, vomiting. She currently rates her pain 08/15 and has tried no treatment for her pain prior to arrival. She is also complaining of uncontrolled, continuous belching since eating [place] yesterday afternoon. Related Data Home Medications Medication Instructions Recorded Confirmed multivitamin 1 tablet PO DAILY 07/24/19 02/03/22 cetirizine 10 mg capsule (Zyrtec) 10 mg PO DAILY 06/11/21 02/03/22 calcium carbonate 600 mg-vitamin 1 tablet PO DAILY 07/17/21 02/03/22 D3 5 mcg (200 unit) tablet alendronate 70 mg tablet (Fosamax) 70 mg PO WEEKLY 10/02/21 02/03/22 clobetasol 0.05 % topical cream See Rx Instructions .Route .COMPLEX 02/03/22 02/03/22 Allergies Allergy/AdvReac Type Severity Reaction Status Date / Time prednisone AdvReac Unknown Flush Verified 02/03/22 18:21 purple rxn Review of Systems Review of Systems: CONSTITUTIONAL: Denies body aches, fever, chills, or sweats. EYES: Denies visual changes, redness, or discharge. ENT: Denies rhinorrhea, congestion, sore throat, or otalgia. CARDIOVASCULAR: Denies chest pain, palpitations, or edema. RESPIRATORY: Denies cough or dyspnea. GASTROINTESTINAL: Denies abdominal pain, nausea, vomiting, or diarrhea.+ Uncontrolled belching GENITOURINARY: Denies dysuria or hematuria. SKIN: Denies rash, itching, or wounds. MUSCULOSKELETAL: Denies joint pain, or myalgia.+ upper back pain NEUROLOGIC: Denies headache, numbness, tingling, or weakness. PSYCH: Denies depression or anxiety. PMFSH Past Medical History Medical History Bronchitis Essential (primary) hypertension Gastro-esophageal reflux disease without esophagitis Stress Tietze's disease Vitamin D deficiency, unspecified Surgical History Surgical History H/O breast biopsy (~2001) Hx of tubal ligation (~1981) Family History Family History Father Hypertension Mother Hypertension Grandparent Cerebrovascular accident Carcinoma of colon, Onset Age: 60 Social History Social History Smoking status: Never smoker Alcohol intake: current Drinks per week: 1 Substance use: never Substance use type: does not use Additional living arrangements comments: Gender identity (if verbalized by the patient): Female Sexual Orientation (if Verbalized by the Patient): Straight or Heterosexual Spiritual care concerns: No Comments Exam Narrative: GENERAL: Well-appearing, well-nourished, and in no acute distress. HEAD: Normocephalic, atraumatic. EYES: EOMI. No redness or drainage. Conjunctivae normal. ENT: Mucous membranes pink and moist. NECK: Normal AROM. CHEST: No respiratory distress. Clear to auscultation. HEART: Regular rate and rhythm. No murmur appreciated. Normal peripheral pulses. ABDOMEN: Soft, nontender, nondistended, normal active bowel sounds. MUSCULOSKELETAL: Patient has some mild tenderness of the upper thoracic spine/paraspinal areas across the area above the bra line with palpation. EXTREMITIES: Normal range of motion. No edema. SKIN: Warm, dry, no rash. Capillary refill normal.
--- NOTE | 2022-02-03 19:13 | ECG_ITS ---
Measurements Intervals [place] Rate: 60 P: 75 MD: 225 QRS: 15 QRSD: 67 T: 53 QT: 411 QTc: 413 Interpretive Statements SINUS RHYTHM WITH FIRST DEGREE AV BLOCK LOW QRS VOLTAGE IN PRECORDIAL LEADS CONSIDER ANTERIOR INFARCT, AGE INDETERMINATE BASELINE ARTIFACT- II, III, AVF ABNORMAL ECG COMPARED TO ECG 03/13/2021 10:30:03 NO SIGNIFICANT CHANGES Electronically Signed On 02-03-2022 23:01:48 INSTRUCTIONAL MATERIAL DIRECTOR by Junior Gill D.O.
== END 2022-02-03 19:39 | disposition left against medical advice (07) ==
PROVIDERS: Emergency Provider Nurse Practitioner; PCP Family Medicine
DX: M54.6 Pain in thoracic spine (principal); R94.31 Abnormal electrocardiogram [ECG] [EKG]; K21.9 Gastro-esophageal reflux disease without esophagitis; E55.9 Vitamin D deficiency, unspecified; M94.0 Chondrocostal junction syndrome [Tietze]
CPT/HCPCS: 93005; 99213; G0463

== ENCOUNTER 2022-02-03 21:48 | Emergency (ER) | payer MEDICARE, SELFPAY ==
--- NOTE | ~2022-02-03 | XR_ITS ---
EXAMINATION: XR chest 2V DATE: 02/03/2022 23:23 INDICATION: Chest tightness. TECHNIQUE: Frontal and lateral views of the chest were obtained. COMPARISON: Chest 2 views 06/18/2021 FINDINGS: There is mild scarring at the lung apices. There is mild atelectasis versus scarring in the lower lung zones. No pleural effusion or pneumothorax. The heart size is normal. IMPRESSION: 1. Stable mild scarring at the lung apices. 2. Mild atelectasis versus scarring in the lower lung zones. Reviewed, dictated and finalized at location A. EY DISPATCHER
--- NOTE | ~2022-02-03 | CT_ITS ---
EXAMINATION: CT chest abdomen pelvis w con DATE: 02/04/2022 01:47 INDICATION: Right abdominal pain. Mid back pain. TECHNIQUE: Computed tomography (CT) of the chest, abdomen, and pelvis was performed with 100 mL Omnip aque 350 intravenous contrast. Automated exposure control and iterative reconstruction technique were employed. The dose-length product was 735.53 mGy-cm. COMPARISON: Chest CT of 03/13/2021 FINDINGS: CHEST CT: There is mild scarring at the lung apices. There is mild atelectasis in the inferior lungs. There is mild scarring in lingula with bronchiectasis. No pleural effusion. Pectus excavatum is noted. The hea rt size is normal. No pericardial effusion. Calcified right hilar lymph nodes are consistent with old granulomatous disease. There is severe thoracic spondylosis. ABDOMEN/PELVIS CT: Calcifications in the liver and spleen are consistent with old granulomatous disease. The gallbladder , pancreas, adrenal glands, and kidneys are normal. There is diverticulosis of the colon without evid ence of diverticulitis. The appendix is normal. There are no dilated loops of bowel. There are no pat hologically enlarged lymph nodes. There is no free intraperitoneal fluid. There is severe lumbar spon dylosis. IMPRESSION: 1. Mild atelectasis and scarring in the lungs. 2. Severe thoracolumbar spondylosis. Reviewed, dictated and finalized at location A. ING AND FOLDING MACHINE OPERATOR
[2022-02-03 22:01] VITALS: BP 153/80; PULSE 58; RESP 18; TEMP 36.3; O2SAT 96
--- NOTE | 2022-02-03 22:05 | ECG_ITS ---
Measurements Intervals [place] Rate: 54 P: 67 PA: 223 QRS: 11 QRSD: 64 T: 64 QT: 423 QTc: 404 Interpretive Statements SINUS BRADYCARDIA WITH FIRST DEGREE AV BLOCK BORDERLINE R WAVE PROGRESSION, ANTERIOR LEADS CONSIDER INFERIOR INFARCT, AGE INDETERMINATE BASELINE ARTIFACT- I, II, III, AVR, AVL, AVF ABNORMAL ECG COMPARED TO ECG 03/13/2021 10:30:03 SINUS BRADYCARDIA NOW PRESENT Electronically Signed On 02-04-2022 6:56:18 HAND FORMER HELPER by Junior Gill D.O.
[2022-02-03 22:35] LABS: Basophils Absolute Auto 0.1 K/mm3 (0.0-0.1); Basophils Percent Auto 0.8 % (0.2-1.2); Eosinophils Absolute Auto 0.2 K/mm3 (0-0.3); Eosinophils Percent Auto 2.7 % (0-4.4); Hematocrit 41.2 % (37.0-47.0); Hemoglobin 13.7 g/dL (12.0-15.0); Immature Granulocyte Absolute 0.01 K/mm3 (0.00-0.031); Immature Granulocyte Percent A 0.1 % (0-0.5); Lymphocytes Absolute Auto 1.78 K/mm3 (0.9-3.2); Lymphocytes Percent Auto 25.2 % (18.3-44.2); Mean Corpuscular HGB Conc 33.3 g/dl (32-36); Mean Corpuscular Hemoglobin 31.6 pg (26-34); Mean Corpuscular Volume 95.2 fl (80-100); Mean Platelet Volume 9.4 fl (7.4-10.4); Monocytes Absolute Auto 1.1 K/mm3 (0.1-0.6); Monocytes Percent Auto 15.7 % (2.6-8.5); Neutrophils Absolute Auto 3.9 K/mm3 (1.3-6.7); Neutrophils Percent Auto 55.5 % (45.5-73.1); Platelet Count Result 271 k/mm3 (150-375); Red Blood Count 4.33 M/mm3 (4.2-5.4); Red Cell Distribution Width 12.3 % (11.5-14.5); White Blood Count 7.1 K/mm3 (4.5-10.0)
[2022-02-03 23:00] LABS: Alanine Aminotransferase 25 U/L (6-35); Albumin Level 4.3 g/dL (3.5-5.1); Alkaline Phosphatase 119 U/L (38-126); Anion Gap 10 mmol/L (8-16); Aspartate Amino Transferase 29 U/L (14-36); Bilirubin,Total 0.5 mg/dL (0.2-1.3); Blood Urea Nitrogen 18 mg/dL (7-17); Calcium 9.2 mg/dL (8.4-10.2); Carbon Dioxide 25 mmol/L (22-30); Chloride 103 mmol/L (98-107); Estimated CRCL calculation 53 ml/min; Estimated Glomerular Filt Rate > 60; Glucose 118 mg/dL (65-110); Lipase 100 U/L (23-300); Potassium 4.5 mmol/L (3.4-5.0); Sodium 138 mmol/L (137-145)
[2022-02-03 23:01] LABS: Prothrombin Time 12.3 Seconds (11.1-14.7)
[2022-02-03 23:02] LABS: Partial Thromboplastin Time 30.6 SECONDS (22.3-36.8)
[2022-02-03 23:12] LABS: Troponin I < 0.012 ng/mL (0.000-0.034)
[2022-02-03 23:51] VITALS: PULSE 52; RESP 11; O2SAT 97
[2022-02-03 23:54] VITALS: BP 184/81; PULSE 53; RESP 19; O2SAT 97
[2022-02-04] VITALS (17 sets, daily range): BP systolic 151–189; BP diastolic 69–85; PULSE 50–76; RESP 13–25; O2SAT 95–99
--- NOTE | 2022-02-04 00:55 | ED.CHESTPAIN ---
HPI - Chest Pain General Chief Complaint: Chest Pain Stated Complaint: Back Pain Time Seen by Provider: 02/04/22 00:55 History of Present Illness HPI narrative: Patient is a 76-year-old female with a history of hypertension, hyperlipidemia, hypothyroidism, presenting to the emergency department for evaluation of lower chest wall pain, upper abdominal pain that occurred after eating lunch yesterday, and then recurred after eating dinner tonight. Patient reports a gas-like burning pain in the upper abdomen and lower chest with radiation to the back. She reports an associated chest pressure in the center of the frontal chest without shoulder pain, jaw pain or neck pain. She has had associated nausea without vomiting. She denies shortness of breath or pleuritic pain. She denies fever, chills, lower flank pain, dysuria or hematuria. Patient reports history of loose stools recently but resolution over the past few days. Patient denies any significant abdominal distention. No history of cholecystectomy or appendectomy. Related Data Home Medications Medication Instructions Recorded Confirmed multivitamin 1 tablet PO DAILY 07/24/19 02/03/22 cetirizine 10 mg capsule (Zyrtec) 10 mg PO DAILY 06/11/21 02/03/22 calcium carbonate 600 mg-vitamin 1 tablet PO DAILY 07/17/21 02/03/22 D3 5 mcg (200 unit) tablet alendronate 70 mg tablet (Fosamax) 70 mg PO WEEKLY 10/02/21 02/03/22 clobetasol 0.05 % topical cream See Rx Instructions .Route .COMPLEX 02/03/22 02/03/22 Allergies Allergy/AdvReac Type Severity Reaction Status Date / Time prednisone AdvReac Unknown Flush Verified 02/03/22 18:21 purple rxn Review of Systems Review of Systems: CONSTITUTIONAL: Denies fever, chills, or sweats. ENT: Slight rhinorrhea, denies congestion, sore throat, otalgia CARDIOVASCULAR: Reports chest pressure without palpitations, or edema. RESPIRATORY: Denies cough or dyspnea. GASTROINTESTINAL: Reports right upper quadrant abdominal pain as well as right lower quadrant abdominal pain, nausea without vomiting, denies constipation GENITOURINARY: Denies dysuria or hematuria. SKIN: Denies rash or itching. MUSCULOSKELETAL: Patient reports mild aching sensation in middle back, denies flank tenderness, denies other joint pain or myalgias NEUROLOGIC: Denies headache, numbness, or weakness. [facility] Past Medical History Medical History Bronchitis Essential (primary) hypertension Gastro-esophageal reflux disease without esophagitis Stress Tietze's disease Vitamin D deficiency, unspecified Surgical History Surgical History H/O breast biopsy (~2001) Hx of tubal ligation (~1981) Family History Family History Father Hypertension Mother Hypertension Grandparent Cerebrovascular accident Carcinoma of colon, Onset Age: 60 Social History Social History Smoking status: Never smoker Alcohol intake: current Drinks per week: 1 Substance use: never Substance use type: does not use Additional living arrangements comments: Gender identity (if verbalized by the patient): Female Sexual Orientation (if Verbalized by the Patient): Straight or Heterosexual Spiritual care concerns: No Exam Narrative: GENERAL: Awake, alert, conversant HEAD: Normocephalic, atraumatic. EYES: PERRLA and EOMI. ENT: Nares clear, no rhinorrhea or epistaxis. Mucous membranes moist. NECK: Supple. CHEST: No respiratory distress, breathing even and non labored, chest wall tenderness HEART: Borderline bradycardic rate, sinus rhythm ABDOMEN:Non distended, tender in the right upper quadrant, epigastrium, right lower quadrant without rebound, rigidity or guarding EXTREMITIES: Normal range of motion. No edema. SKIN: Warm, dry, no rash. NEURO:No foca
[2022-02-04] MEDS: ONDANSETRON INJ 4 MG/2 ML VIAL IV PUSH (01:24)
[2022-02-04] MEDS: FAMOTIDINE 20 MG/2 ML VIAL IV PUSH (01:25)
[2022-02-04] MEDS: MORPHINE SULFATE (*CRX) 2 MG/ML INJ IV PUSH (01:26)
[2022-02-04 01:28] LABS: Troponin I < 0.012 ng/mL (0.000-0.034)
[2022-02-04] MEDS: SODIUM CHLORIDE 0.9% IV 1,000 ML 999 ML IV CONT (01:28)
== END 2022-02-04 05:20 | disposition home or self-care (01) ==
PROVIDERS: Emergency Provider Emergency Medicine; PCP Family Medicine
DX: R07.89 Other chest pain (principal); I10 Essential (primary) hypertension; K21.9 Gastro-esophageal reflux disease without esophagitis; M94.0 Chondrocostal junction syndrome [Tietze]; E55.9 Vitamin D deficiency, unspecified; R00.1 Bradycardia, unspecified; R94.31 Abnormal electrocardiogram [ECG] [EKG]
CPT/HCPCS: 36415; 71046; 71260; 74177; 80053; 83690; 84484; 85025; 85610; 85730; 93005; 96361; 96374; 96375; 99284; J2270; J2405; J7030; Q9967

== ENCOUNTER 2022-05-08 12:48 | Emergency (ER) | payer MEDICARE, SELFPAY ==
--- NOTE | ~2022-05-08 | US_ITS ---
EXAMINATION: US venous doppler LE RT DATE: 05/08/2022 16:17 INDICATION: Right lower limb pain TECHNIQUE: Tapia scale images without and with compression and Doppler images of the right lower extre mity veins were obtained. COMPARISON: None FINDINGS: The right common femoral vein, profunda femoral vein, femoral vein, popliteal vein, peronea l trunk, posterior tibial veins, and greater saphenous vein are patent. IMPRESSION: 1. Patent right lower extremity veins. No evidence of deep venous thrombosis. Reviewed, dictated and finalized at location F. IAL MACHINE OPERATOR
[2022-05-08 14:47] VITALS: BP 152/83; PULSE 90; RESP 18; TEMP 36.7; O2SAT 98
--- NOTE | 2022-05-08 15:44 | ED.WOUNDLAC ---
HPI - Wound/Laceration General Chief Complaint: Wound/Laceration Stated Complaint: toe discoloration/tingling in leg x2 days Time Seen by Provider: 05/08/22 15:38 History of Present Illness HPI narrative: Patient is a 76-year-old female here for evaluation of toe pain for the past several days. Patient states the pain is described as a sharp stinging sensation occasionally radiates up into her calf. Today the toe became red and swollen which prompted her ED eval. She denies any redness or swelling in her calf. No history of DVT. Contacted her primary care doctor who recommended ED eval. Has been able to walk without issue. Has not attempted any medicine for pain. Related Data Home Medications Medication Instructions Recorded Confirmed multivitamin 1 tablet PO DAILY 07/24/19 02/05/22 cetirizine 10 mg capsule (Zyrtec) 10 mg PO DAILY 06/11/21 02/05/22 alendronate 70 mg tablet (Fosamax) 70 mg PO WEEKLY 10/02/21 02/05/22 clobetasol 0.05 % topical cream See Rx Instructions .Route .COMPLEX 02/03/22 02/05/22 Allergies Allergy/AdvReac Type Severity Reaction Status Date / Time prednisone AdvReac Unknown Flush Verified 04/09/22 09:48 purple rxn Review of Systems Review of Systems: Gen: Denies fevers or chills Eyes: Denies eye pain or visual change ENT: Denies congestion Respiratory: Denies shortness of breath or cough CV: Denies chest pain or palpitations GI: Denies abdominal pain nausea, emesis or diarrhea denies burning, urgency, frequency or hematuria Musculoskeletal: Denies back pain or muscle pain Neuro: Denies numbness, tingling, weakness or focal weakness Skin: Reports redness and swelling to right great toe Except as documented, all other systems reviewed and negative ON LICENSE OF [facility] Past Medical History Medical History Bronchitis Essential (primary) hypertension Gastro-esophageal reflux disease without esophagitis Stress Tietze's disease Vitamin D deficiency, unspecified Surgical History Surgical History H/O breast biopsy (~2001) Hx of tubal ligation (~1981) Family History Family History Father Hypertension Mother Hypertension Grandparent Cerebrovascular accident Carcinoma of colon, Onset Age: 60 Social History Social History Smoking status: Never smoker Alcohol intake: current Drinks per week: 1 Substance use: never Substance use type: does not use Lack of Transportation: No Lack of Food: Never True Current Housing: I Have Housing Concerned About Future Housing: No Difficulty Paying Gas/Electric Bills: No Difficulty Paying for Meds: No Currently Unemployed: No Education: High School Diploma/GED Difficulty w/ Childcare or Family Care: No Living arrangements: with family Additional living arrangements comments: Occupation/Education: retired Gender identity (if verbalized by the patient): Female Sexual Orientation (if Verbalized by the Patient): Straight or Heterosexual Spiritual care concerns: No Exam Narrative: APPEARANCE: Well appearing, no pain in distress, well-nourished. Head: Normocephalic and atraumatic. EYES: PERRLA/EOMI, conjunctivae clear NOSE: No nasal drainage EARS: External ear normal in appearance THROAT: Oropharynx is clear. Mucous membranes are moist. NECK: Supple. No adenopathy, no masses. RESPIRATORY: Airway patent, respirations nonlabored. Clear to auscultation bilaterally, no rales, rhonchi, wheezing. CARDIOVASCULAR: Strong DP and PT pulses bilaterally. Regular rate and rhythm without murmurs, rubs, or gallops. ABDOMINAL: Normoactive bowel sounds. Soft, nontender, nondistended. No rebound tenderness or guarding. MUSCULOSKELETAL: Patient's right great toe is erythematous and swollen, tende
[2022-05-08 16:57] VITALS: BP 151/86; PULSE 87; RESP 18; O2SAT 99
== END 2022-05-08 16:58 | disposition home or self-care (01) ==
LOC: ANHED 16:50
PROVIDERS: Emergency Provider Physician Assistant; PCP Family Medicine
DX: M79.674 Pain in right toe(s) (principal)
CPT/HCPCS: 93971; 99284

== ENCOUNTER → 2022-05-26 10:53 | Outpatient (CLI) | payer MEDICARE, SELFPAY ==
--- NOTE | ~2022-05-26 | MM_ITS ---
EXAMINATION: MM screening [facility] BI w [place] HISTORY: Screening TECHNIQUE: Craniocaudal and mediolateral oblique 3-D tomosynthesis images were obtained and synthetic 2-D images were generated. CAD analysis was submitted and interpreted. COMPARISON: Comparison to multiple prior studies sequentially, with oldest reviewed study dated 04/2015. BREAST PARENCHYMAL COMPOSITION: There are scattered areas of fibroglandular density. FINDINGS: There is no evidence of suspicious mass, calcification, or architectural distortion to sugg est malignancy in either breast. There has been no suspicious interval change. IMPRESSION: 1. No mammographic evidence of malignancy. 2. Recommend routine screening mammography in one year. BI-RADS Category 1: Negative Reviewed, dictated and finalized at location A.
== END ==
PROVIDERS: PCP Family Medicine; Visit Provider Family Medicine
DX: Z12.31 Encounter for screening mammogram for malignant neoplasm of breast (principal)
CPT/HCPCS: 77063; 77067

== ENCOUNTER 2022-06-11 10:10 | Outpatient (CLI) | payer MEDICARE, SELFPAY ==
[2022-06-11 11:39] LABS: Toxigenic C. Diff NEGATIVE (NEGATIVE)
== END 2022-06-11 10:11 | disposition home or self-care (01) ==
LOC: ANHLAB 10:13
PROVIDERS: PCP Family Medicine; Visit Provider Nurse Practitioner Family
DX: R19.7 Diarrhea, unspecified (principal)
CPT/HCPCS: 87045; 87177; 87209; 87427; 87493

== ENCOUNTER 2022-06-18 13:59 | Outpatient (CLI) | payer MEDICARE, SELFPAY ==
[2022-06-18 11:17] LABS: Hemoglobin 14.1 g/dL (12.0-15.0); Mean Corpuscular HGB Conc 32.8 g/dl (32-36); Mean Corpuscular Hemoglobin 32.2 pg (26-34); Mean Corpuscular Volume 98.2 fl (80-100); Mean Platelet Volume 9.3 fl (7.4-10.4); Platelet Count Result 256 k/mm3 (150-375); Red Blood Count 4.38 M/mm3 (4.2-5.4); Red Cell Distribution Width 12.3 % (11.5-14.5); White Blood Count 7.5 K/mm3 (4.5-10.0)
[2022-06-18 11:29] LABS: Alanine Aminotransferase 24 U/L (6-35); Albumin Level 4.3 g/dL (3.5-5.1); Alkaline Phosphatase 110 U/L (38-126); Anion Gap 8 mmol/L (8-16); Aspartate Amino Transferase 25 U/L (14-36); Bilirubin,Total 0.6 mg/dL (0.2-1.3); Blood Urea Nitrogen 14 mg/dL (7-17); CRP < 0.5 mg/dL (<1.0); Calcium 9.2 mg/dL (8.4-10.2); Carbon Dioxide 23 mmol/L (22-30); Chloride 106 mmol/L (98-107); Estimated Glomerular Filt Rate > 60; Glucose 115 mg/dL (65-110); Potassium 3.9 mmol/L (3.4-5.0); Sodium 137 mmol/L (137-145)
[2022-06-18 12:16] LABS: Erythrocyte Sedimentation Rate 22 mm/hr (0-20)
[2022-06-24 19:34] LABS: Gliadin AB, IgG <1.0 U/mL (<15.0); TTG IGA AB <1.0 U/mL (<15.0)
[2022-06-27 21:02] LABS: Calprotectin, Stool 242 mcg/g
== END 2022-06-18 14:00 | disposition home or self-care (01) ==
PROVIDERS: PCP Family Medicine; Visit Provider Nurse Practitioner
DX: R14.0 Abdominal distension (gaseous) (principal); R19.7 Diarrhea, unspecified; Z79.899 Other long term (current) drug therapy; E55.9 Vitamin D deficiency, unspecified
CPT/HCPCS: 36415; 80053; 83993; 84443; 85027; 85652; 86140; 86255; 86364; 87045; 87427

== ENCOUNTER 2022-10-08 09:32 | Outpatient (CLI) | payer MEDICARE, SELFPAY ==
[2022-10-08 13:07] LABS: Kit Draw Collected
== END 2022-10-08 09:33 | disposition home or self-care (01) ==
LOC: ANHGOSHLAB 09:35
PROVIDERS: PCP Family Medicine; Visit Provider Family Medicine
DX: R53.83 Other fatigue (principal); E78.5 Hyperlipidemia, unspecified
CPT/HCPCS: 36415

== ENCOUNTER 2023-01-12 09:54 | Outpatient (CLI) | payer MEDICARE, SELFPAY ==
--- NOTE | 2023-01-12 10:04 | EST_ITS ---
Patient Info Name: Merissa Burciaga Age: 77 years : 1945 Gender: Female Ht: 65 in Wt: 179 lbs BSA: 1.95 m2 Technical Quality: Fair Exam Date: 01/12/2023 10:32 AM Exam Location: Echo Lab Patient Status: Outpatient Admit Date: 01/12/2023 Staff Ordering Physician: Yasir Ortega PA-C Catcher Filter Tip: Yvonne Fernando RDCS, RT Attending Provider: Referring Physician: Shannon RODRÍGUEZ; Exercise Technologist: Cary Rizvi CT Exercise Physician: Junior Glil DO Exam Type: CA stress echo Study Info Indications R07.9 - Chest pain, unspecified Treadmill exercise stress echocardiogram is performed. Summary 1. 1. Negative Alex exercise stress test for ischemic ST changes by ECG criteria. 2. 2. Good functional capacity, achieving 7 METs of workload. 3. 3. Baseline hypertension. 4. 4. Appropriate HR response to exercise. 5. 5. Appropriate HR recovery at 1 minute post exercise. 6. 6. Negative stress echocardiogram for ischemia by wall motion analysis. 7. 7. Patient informed of the above results. Stress Echo Findings Left Ventricle Appropriate increase in LV endocardial thickening with systole. Appropriate augmentation of contractility with systole. No wall motion abnormality. Left Ventricle Normal LV systolic function, no wall motion abnormality. Protocol: Alex Stress ECG Details Stage: REST Duration (min): 1 min : 8 sec Speed (mph): 0.0 Grade (%): 0 HR (bpm): 50 SBP (mmHg): 143 DBP (mmHg): 79 METS: --- Stage: REST Duration (min): 21 min : 59 sec Speed (mph): 0.0 Grade (%): 0 HR (bpm): 49 SBP (mmHg): 143 DBP (mmHg): 79 METS: --- Stage: STAGE 1 Duration (min): 1 min : 0 sec Speed (mph): 1.7 Grade (%): 10 HR (bpm): 85 SBP (mmHg): 143 DBP (mmHg): 79 METS: --- Stage: STAGE 1 Duration (min): 2 min : 0 sec Speed (mph): 1.7 Grade (%): 10 HR (bpm): 99 SBP (mmHg): 143 DBP (mmHg): 79 METS: --- Stage: STAGE 1 Duration (min): 3 min : 0 sec Speed (mph): 1.7 Grade (%): 10 HR (bpm): 96 SBP (mmHg): 185 DBP (mmHg): 73 METS: --- Stage: STAGE 2 Duration (min): 1 min : 0 sec Speed (mph): 2.5 Grade (%): 12 HR (bpm): 110 SBP (mmHg): 185 DBP (mmHg): 73 METS: --- Stage: STAGE 2 Duration (min): 2 min : 0 sec Speed (mph): 2.5 Grade (%): 12 HR (bpm): 115 SBP (mmHg): 206 DBP (mmHg): 76 METS: --- Stage: STAGE 2 Duration (min): 2 min : 37 sec Speed (mph): 0.0 Grade (%): 0 HR (bpm): 117 SBP (mmHg): 206 DBP (mmHg): 76 METS: --- Stage: RECOVERY Duration (min): 0 min : 22 sec Speed (mph): 0.0 Grade (%): 0 HR (bpm): 109 SBP (mmHg): 206 DBP (mmHg): 76 METS: --- Stage: RECOVERY Duration (min): 1 min : 22 sec Speed (mph): 0.0 Grade (%): 0 HR (bpm): 94 SBP (mmHg): 206 DBP (mmHg): 76 METS: --- Stage: RECOVERY Duration (min): 2 min : 22 sec Speed (mph): 0.0 Grade (%): 0 HR (bpm): 82 SBP (mmHg): 206 DBP (mmHg): 76 METS: --- Sta
== END 2023-01-12 09:55 | disposition home or self-care (01) ==
LOC: ANHCARD 09:55
PROVIDERS: PCP Family Medicine; Visit Provider Physician Assistant
DX: R07.9 Chest pain, unspecified (principal); I10 Essential (primary) hypertension; Z79.899 Other long term (current) drug therapy
CPT/HCPCS: 93351

== ENCOUNTER 2023-01-20 12:34 | Emergency (ER) | payer MEDICARE, SELFPAY ==
--- NOTE | ~2023-01-20 | XR_ITS ---
EXAMINATION: [id number] DATE: 01/20/2023 13:10 INDICATION: Anterior left rib pain. Fall. TECHNIQUE: A frontal view of the chest and 2 views on 3 radiographs of the left ribs were obtained. COMPARISON: Chest 2 views 02/03/2022 FINDINGS: There is mild scarring at the lung apices. No pleural effusion or pneumothorax. The heart s ize is normal. There is an old healed fracture of left fourth rib. IMPRESSION: 1. No acute rib fracture. 2. Mild scarring at the lung apices. Reviewed, dictated and finalized at location A. STOCK FEEDER
--- NOTE | 2023-01-20 12:41 | ED.FALL ---
HPI - Fall General Chief Complaint: Fall Stated Complaint: FALL/L SIDED CHEST PAIN Time Seen by Provider: 01/20/23 12:41 Source: patient Mode of arrival: ambulatory Limitations: no limitations History of Present Illness HPI Narrative: 77-year-old female presents with complaint of left-sided rib pain. Patient reports that she tripped on a small curve and fell down on to left side. States that she did not time to catch her fall. Denies hitting head. Ambulatory with steady gait. Denies shortness of breath. All systems reviewed and negative except as noted above. Related Data Home Medications Medication Instructions Recorded Confirmed multivitamin 1 tablet PO DAILY 07/24/19 01/20/23 cetirizine 10 mg capsule (Zyrtec) 10 mg PO DAILY 06/11/21 01/20/23 Allergies Allergy/AdvReac Type Severity Reaction Status Date / Time prednisone AdvReac Unknown Flush Verified 01/20/23 13:06 purple rxn Review of Systems Review of Systems: CONSTITUTIONAL: Denies fever, chills, or sweats. EYES: Denies visual changes, redness, or discharge. ENT: Denies rhinorrhea, congestion, sore throat, or otalgia. CARDIOVASCULAR: Denies chest pain, palpitations, or edema. RESPIRATORY: Denies cough or dyspnea. GASTROINTESTINAL: Denies abdominal pain, nausea, vomiting, or diarrhea. GENITOURINARY: Denies dysuria or hematuria. SKIN: Denies rash or itching. MUSCULOSKELETAL: Denies back pain, joint pain, or myalgia. Reports left rib pain. NEUROLOGIC: Denies headache, numbness, or weakness. PSYCHIATRIC: Denies anxiety or depression. All other systems reviewed are negative, except as documented in HPI. [facility] Past Medical History Medical History Belching Bloating symptom Bronchitis Essential (primary) hypertension Gastro-esophageal reflux disease without esophagitis Obesity Stress Tietze's disease Vitamin D deficiency, unspecified Surgical History Surgical History H/O breast biopsy (~2001) Hx of tubal ligation (~1981) Family History Family History Father Hypertension Mother Hypertension Grandparent Cerebrovascular accident Carcinoma of colon, Onset Age: 60 Social History Social History Smoking status: Never smoker Alcohol intake: current Drinks per week: 1 Substance use: never Substance use type: does not use Lack of Transportation: No Lack of Food: Never True Current Housing: I Have Housing Concerned About Future Housing: No Difficulty Paying Gas/Electric Bills: No Difficulty Paying for Meds: No Currently Unemployed: No Education: High School Diploma/GED Difficulty w/ Childcare or Family Care: No Living arrangements: with family Additional living arrangements comments: Occupation/Education: retired Gender identity (if verbalized by the patient): Female Sexual Orientation (if Verbalized by the Patient): Straight or Heterosexual Spiritual care concerns: No Comments At time of signature, agree with nursing past medical, surgical, social and family history. There is no relevant family history pertinent to the presenting complaint. Exam Narrative: GENERAL: This is a well-nourished, well-developed patient, in no apparent distress. HEAD: normocephalic, atraumatic. EYES: PERRL. Sclera clear/white. Vision is grossly intact. EARS: External ears normal NOSE: External nose normal NECK: Neck supple, non-tender without lymphadenopathy, masses or thyromegaly. CARDIOVASCULAR: Regular rate and rhythm without murmurs, gallops, or rubs. RESPIRATORY: Clear to auscultation. Breath sounds equal bilaterally. No wheezes, rales, or rhonchi. SKIN: warm, Dry, intact with no suspicious lesions or rash, good texture and turgor. NEURO: awake, alert, and orien
[2023-01-20 12:43] VITALS: BP 153/76; PULSE 74; RESP 16; TEMP 36.8; O2SAT 99
== END 2023-01-20 13:45 | disposition home or self-care (01) ==
PROVIDERS: Emergency Provider Nurse Practitioner Family; PCP Family Medicine
DX: S20.212A Contusion of left front wall of thorax, initial encounter (principal); I10 Essential (primary) hypertension; W01.0XXA Fall on same level from slipping, tripping and stumbling without subsequent striking against object, initial encounter
CPT/HCPCS: 71101; 99213; G0463

== ENCOUNTER 2023-01-26 11:32 | Emergency (ER) | payer MEDICARE, SELFPAY ==
--- NOTE | ~2023-01-26 | XR_ITS ---
XR chest 2V 01/26/2023 12:50 Indication: Status post fall. Chest pain. Procedure: 2 view chest Comparison: Comparison to multiple prior studies sequentially, with oldest reviewed study dated 01/06. Findings: Heart size normal. No focal air space disease, pulmonary edema, pleural effusion or suspect ed pneumothorax. No acute osseous abnormality. Impression: 1: No acute cardiopulmonary disease. Reviewed, dictated and finalized at location L. RAL SUPERVISOR Impression: 1: No acute cardiopulmonary disease.
[2023-01-26 12:04] VITALS: BP 165/89; PULSE 75; RESP 16; TEMP 36.4; O2SAT 95
--- NOTE | 2023-01-26 12:51 | ED.BACK ---
HPI - Back Pain/Injury General Chief Complaint: Back Pain/Injury Stated Complaint: Back pain Time Seen by Provider: 01/26/23 12:51 Source: patient, family, RN notes reviewed and old records reviewed Mode of arrival: ambulatory Limitations: no limitations History of Present Illness HPI Narrative: 77 year old female accompanied by spouse presents to express care with complaints of continued and some worsening left upper back pain since fall last week. Patient was seen in the clinic last week and had x-ray with no fractures noted and also saw her PCP who ordered some muscle relaxers Patient states that the muscle relaxers made her too sleepy and has been taking only Ibuprofen and Lidocaine patches Yesterday she states that she had muscle tightness across her back and it felt like she couldn't take a deep breath and today she doesn't feel 'right'. MD elicited complaint: back pain and fall Pertinent past history: other (fall one week ago) Onset (ago): week(s) (fall one week ago) Pain scale (0-10): 3 Quality: aching and other (cramping and soreness.) Treatments prior to arrival: NSAIDS and other (Lidocaine patches) Related Data Home Medications Medication Instructions Recorded Confirmed multivitamin 1 tablet PO DAILY 07/24/19 01/26/23 cetirizine 10 mg capsule (Zyrtec) 10 mg PO DAILY 06/11/21 01/26/23 Allergies Allergy/AdvReac Type Severity Reaction Status Date / Time prednisone AdvReac Unknown Flush Verified 01/22/23 09:33 purple rxn Review of Systems Review of Systems: CONSTITUTIONAL: Denies fever, chills, or sweats. EYES: Denies visual changes, redness, or discharge. ENT: Denies rhinorrhea, congestion, sore throat, or otalgia. CARDIOVASCULAR: Denies chest pain, palpitations, felt like she couldn't take a deep breath yesterday, no edema. RESPIRATORY: Denies cough or dyspnea. GASTROINTESTINAL: Denies abdominal pain, nausea, vomiting, or diarrhea. GENITOURINARY: Denies dysuria or hematuria. SKIN: Denies rash or itching. MUSCULOSKELETAL: Reports upper left back pain,no joint pain, or myalgia. NEUROLOGIC: Denies headache, numbness, or weakness. PSYCHIATRIC: Reports anxiety or depression. All systems reviewed & are unremarkable except as noted in HPI and below PMFSH Past Medical History Medical History Belching Bloating symptom Bronchitis Essential (primary) hypertension Gastro-esophageal reflux disease without esophagitis Obesity Stress Tietze's disease Vitamin D deficiency, unspecified Surgical History Surgical History H/O breast biopsy (~2001) Hx of tubal ligation (~1981) Family History Family History Father Hypertension Mother Hypertension Grandparent Cerebrovascular accident Carcinoma of colon, Onset Age: 60 Social History Social History Smoking status: Never smoker Alcohol intake: current Drinks per week: 1 Substance use: never Substance use type: does not use Lack of Transportation: No Lack of Food: Never True Current Housing: I Have Housing Concerned About Future Housing: No Difficulty Paying Gas/Electric Bills: No Difficulty Paying for Meds: No Currently Unemployed: No Education: High School Diploma/GED Difficulty w/ Childcare or Family Care: No Living arrangements: with family Additional living arrangements comments: Occupation/Education: retired Gender identity (if verbalized by the patient): Female Sexual Orientation (if Verbalized by the Patient): Straight or Heterosexual Spiritual care concerns: No Comments At time of signature, agree with nursing past medical, surgical, social and family history. There is no relevant family history pertinent to the presenting complaint Exam Narrative: GENERAL: W
== END 2023-01-26 13:18 | disposition home or self-care (01) ==
PROVIDERS: Emergency Provider Registered Nurse; PCP Family Medicine
DX: M94.0 Chondrocostal junction syndrome [Tietze] (principal); I10 Essential (primary) hypertension; K21.9 Gastro-esophageal reflux disease without esophagitis; E66.9 Obesity, unspecified; Z68.25 Body mass index [BMI] 25.0-25.9, adult
CPT/HCPCS: 71046; 99213; G0463

== ENCOUNTER 2023-05-08 15:42 | Emergency (ER) | payer MEDICARE, SELFPAY ==
[2023-05-08 15:56] VITALS: BP 95/77; PULSE 58; RESP 16; TEMP 36.9; O2SAT 98
--- NOTE | 2023-05-08 16:33 | ED.URI ---
HPI - URI/Sore Throat General Chief Complaint: Upper Respiratory Infection Stated Complaint: Chest Congestion/Cough Time Seen by Provider: 05/08/23 16:22 Source: patient and RN notes reviewed Mode of arrival: ambulatory Limitations: no limitations History of Present Illness HPI Narrative: Patient presents today complaining dry cough, chest tightness and wheezing, fatigue, and hoarse voice. Symptoms began late last night and continued into today. Denies fever, congestion rhinorrhea, sore throat. She has tried no medication for symptoms prior to arrival. No history of asthma or COPD. She is a nonsmoker. Denies any known sick contacts. Related Data Home Medications Medication Instructions Recorded Confirmed multivitamin 1 tablet PO DAILY 07/24/19 02/08/23 cetirizine 10 mg capsule (Zyrtec) 10 mg PO DAILY 06/11/21 02/08/23 Allergies Allergy/AdvReac Type Severity Reaction Status Date / Time prednisone AdvReac Unknown Flush Verified 02/08/23 11:14 purple rxn Review of Systems Review of Systems: CONSTITUTIONAL: Denies body aches, fever, chills, or sweats.+ fatigue EYES: Denies visual changes, redness, or discharge. ENT: Denies rhinorrhea, congestion, sore throat, or otalgia.+ hoarse voice CARDIOVASCULAR: Denies chest pain, palpitations, or edema. RESPIRATORY: + cough, chest tightness, wheezing. GASTROINTESTINAL: Denies abdominal pain, nausea, vomiting, or diarrhea. GENITOURINARY: Denies dysuria or hematuria. SKIN: Denies rash, itching, or wounds. MUSCULOSKELETAL: Denies back pain, joint pain, or myalgia. NEUROLOGIC: Denies headache, numbness, tingling, or weakness. PSYCH: Denies depression or anxiety. [facility] Past Medical History Medical History Belching Bloating symptom Bronchitis Essential (primary) hypertension Gastro-esophageal reflux disease without esophagitis Obesity Stress Tietze's disease Vitamin D deficiency, unspecified Surgical History Surgical History H/O breast biopsy (~2001) Hx of tubal ligation (~1981) Family History Family History Father Hypertension Mother Hypertension Grandparent Cerebrovascular accident Carcinoma of colon, Onset Age: 60 Social History Social History Smoking status: Never smoker Alcohol intake: current Drinks per week: 1 Substance use: never Substance use type: does not use Lack of Transportation: No Lack of Food: Never True Current Housing: I Have Housing Concerned About Future Housing: No Difficulty Paying Gas/Electric Bills: No Difficulty Paying for Meds: No Currently Unemployed: No Education: High School Diploma/GED Difficulty w/ Childcare or Family Care: No Living arrangements: with family Additional living arrangements comments: Occupation/Education: retired Gender identity (if verbalized by the patient): Female Sexual Orientation (if Verbalized by the Patient): Straight or Heterosexual Spiritual care concerns: No Comments At time of signature, I have reviewed and agree with nursing past medical, surgical, social and family history unless otherwise noted. Please see nursing chart for further information. There is no relevant family history pertinent to the presenting complaint Exam Narrative: GENERAL: Mildly ill-appearing, well-nourished, and in no acute distress. HEAD: Normocephalic, atraumatic. EYES: EOMI. No redness or drainage. Conjunctivae normal. ENT: Mucous membranes pink and moist. Nares clear. No rhinorrhea. TMs normal bilaterally. Throat normal. Uvula midline. Hoarse voice NECK: Normal AROM. Supple. No lymphadenopathy. CHEST: No respiratory distress. Clear to auscultation. HEART: Regular rate and rhythm. No murmur apprecia
== END 2023-05-08 16:37 | disposition home or self-care (01) ==
PROVIDERS: Emergency Provider Nurse Practitioner; PCP Family Medicine
DX: B34.9 Viral infection, unspecified (principal); Z20.822 Contact with and (suspected) exposure to COVID-19; I10 Essential (primary) hypertension; K21.9 Gastro-esophageal reflux disease without esophagitis; E66.9 Obesity, unspecified; Z68.29 Body mass index [BMI] 29.0-29.9, adult
CPT/HCPCS: 87426; 87804; 99213; G0463

== ENCOUNTER 2023-05-16 17:10 | Emergency (ER) | payer MEDICARE, SELFPAY ==
--- NOTE | ~2023-05-16 | XR_ITS ---
EXAMINATION: XR chest 2V DATE: 05/16/2023 18:19 INDICATION: Chest pain. Shortness of breath. TECHNIQUE: Frontal and lateral views of the chest were obtained. COMPARISON: Chest 2 views 01/26/2023, chest CT 02/04/2022 FINDINGS: There is mild scarring at the lung apices. No pleural effusion or pneumothorax. The heart s ize is normal. There is a prominent left paracardial fat pad. IMPRESSION: 1. Stable mild scarring at the lung apices. Reviewed, dictated and finalized at location E.
[2023-05-16 17:12] VITALS: BP 155/86; PULSE 79; RESP 18; TEMP 36.4; O2SAT 100
--- NOTE | 2023-05-16 17:15 | ECG_ITS ---
Measurements Intervals [place] Rate: 62 P: 79 GA: 211 QRS: 18 QRSD: 67 T: 72 QT: 395 QTc: 402 Interpretive Statements SINUS RHYTHM WITH FIRST DEGREE AV BLOCK LOW QRS VOLTAGE IN PRECORDIAL LEADS BORDERLINE R WAVE PROGRESSION, ANTERIOR LEADS BORDERLINE ST-T WAVE ABNORMALITY- ANTEROLAT/HIGH LAT LEADS BASELINE ARTIFACT- I, II, III, AVR, AVL, V4-V6 BORDERLINE ECG COMPARED TO ECG 02/03/2022 22:08:23 ST (T WAVE) DEVIATION NOW PRESENT Electronically Signed On 05-16-2023 17:35:53 CDT by Junior Gill D.O.
--- NOTE | 2023-05-16 17:15 | ED.URI ---
HPI - URI/Sore Throat General Chief Complaint: Upper Respiratory Infection Stated Complaint: coughing Time Seen by Provider: 05/16/23 17:16 Focused HPI: This is a 77-year-old female that presents to the emergency department for cold symptoms present over the last week. Reports cough, congestion. Reports she was seen by her primary provider and started on antibiotic. Today she started to have worsening shortness of breath. She is also having pressure in her chest. GENERAL: Well-appearing, well-nourished, and in no acute distress. HEAD: Normocephalic, atraumatic. CHEST: Clear to auscultation. ?No respiratory distress. HEART: Regular rate and rhythm.? NEURO: ?Alert and oriented x3. Patient screened in triage and initial orders placed.? ?Additional care and disposition to be based upon?diagnostic testing and treatment. Related Data Home Medications Medication Instructions Recorded Confirmed multivitamin 1 tablet PO DAILY 07/24/19 02/08/23 cetirizine 10 mg capsule (Zyrtec) 10 mg PO DAILY 06/11/21 02/08/23 Allergies Allergy/AdvReac Type Severity Reaction Status Date / Time prednisone AdvReac Unknown Flush Verified 05/16/23 17:10 purple rxn PMFSH Past Medical History Medical History Belching Bloating symptom Bronchitis Essential (primary) hypertension Gastro-esophageal reflux disease without esophagitis Obesity Stress Tietze's disease Vitamin D deficiency, unspecified Surgical History Surgical History H/O breast biopsy (~2001) Hx of tubal ligation (~1981) Family History Family History Father Hypertension Mother Hypertension Grandparent Cerebrovascular accident Carcinoma of colon, Onset Age: 60 Social History Social History Smoking status: Never smoker Alcohol intake: current Drinks per week: 1 Substance use: never Substance use type: does not use Lack of Transportation: No Lack of Food: Never True Current Housing: I Have Housing Concerned About Future Housing: No Difficulty Paying Gas/Electric Bills: No Difficulty Paying for Meds: No Currently Unemployed: No Education: High School Diploma/GED Difficulty w/ Childcare or Family Care: No Living arrangements: with family Additional living arrangements comments: Occupation/Education: retired Gender identity (if verbalized by the patient): Female Sexual Orientation (if Verbalized by the Patient): Straight or Heterosexual Spiritual care concerns: No Course Vital Signs Vital signs: Vital Signs Temperature 97.6 F 05/16/23 17:12 Pulse Rate 79 05/16/23 17:12 Respiratory Rate 18 05/16/23 17:12 Blood Pressure 155/86 H 05/16/23 17:12 Pulse Oximetry 100 05/16/23 17:12 Oxygen Delivery Room Air 05/16/23 17:12 Temperature 97.6 F 05/16/23 17:12 Pulse Rate 79 05/16/23 17:12 Respiratory Rate 18 05/16/23 17:12 Blood Pressure 155/86 H 05/16/23 17:12 Pulse Oximetry 100 05/16/23 17:12 Oxygen Delivery Room Air 05/16/23 17:12 Discharge Plan Discharge Prescriptions: No Action multivitamin Tablet 1 tablet PO DAILY sertraline 50 mg tablet 50 mg PO DAILY Qty: 90 2RF alendronate [Fosamax] 70 mg tablet 70 mg PO WEEKLY Qty: 13 3RF atorvastatin 20 mg tablet 20 mg PO DAILY Qty: 90 3RF levothyroxine [Synthroid] 88 mcg tablet 88 mcg PO DAILY Qty: 90 3RF atenolol 25 mg tablet 25 mg PO DAILY Qty: 90 3RF tizanidine [Zanaflex] 4 mg tablet 4 mg PO TID PRN (Reason: muscle spasticity) Qty: 30 0RF Zyrtec 10 mg Capsule 10 mg PO DAILY amoxicillin 500 mg capsule 500 mg PO Q8H Qty: 21 1RF Follow-up/Referrals: Lawrence Banks MD [Primary Care Provider] -
[2023-05-16 17:42] LABS: Basophils Absolute Auto 0.1 K/mm3 (0.0-0.1); Basophils Percent Auto 0.7 % (0.2-1.2); Eosinophils Absolute Auto 0.2 K/mm3 (0-0.3); Eosinophils Percent Auto 2.3 % (0-4.4); Hematocrit 41.5 % (37.0-47.0); Hemoglobin 13.5 g/dL (12.0-15.0); Immature Granulocyte Absolute 0.04 K/mm3 (0.00-0.031); Immature Granulocyte Percent A 0.5 % (0-0.5); Lymphocytes Absolute Auto 1.63 K/mm3 (0.9-3.2); Lymphocytes Percent Auto 21.6 % (18.3-44.2); Mean Corpuscular HGB Conc 32.5 g/dl (32-36); Mean Corpuscular Hemoglobin 31.1 pg (26-34); Mean Corpuscular Volume 95.6 fl (80-100); Mean Platelet Volume 9.4 fl (7.4-10.4); Neutrophils Absolute Auto 4.7 K/mm3 (1.3-6.7); Neutrophils Percent Auto 61.9 % (45.5-73.1); Platelet Count Result 248 k/mm3 (150-375); Red Blood Count 4.34 M/mm3 (4.2-5.4); Red Cell Distribution Width 12.3 % (11.5-14.5); White Blood Count 7.5 K/mm3 (4.5-10.0)
[2023-05-16 17:45] LABS: Alanine Aminotransferase 23 U/L (6-35); Albumin Level 4.2 g/dL (3.5-5.1); Alkaline Phosphatase 122 U/L (38-126); Anion Gap 9 mmol/L (8-16); Aspartate Amino Transferase 30 U/L (14-36); Bilirubin,Total 0.7 mg/dL (0.2-1.3); Blood Urea Nitrogen 14 mg/dL (7-17); Calcium 9.3 mg/dL (8.4-10.2); Carbon Dioxide 22 mmol/L (22-30); Chloride 104 mmol/L (98-107); Estimated CRCL calculation 59 ml/min; Estimated Glomerular Filt Rate > 60; Glucose 113 mg/dL (65-110); Sodium 135 mmol/L (137-145)
[2023-05-16 17:46] LABS: INR 0.9; Partial Thromboplastin Time 31.6 SECONDS (22.3-36.8)
[2023-05-16 17:57] LABS: Troponin I < 0.012 ng/mL (0.000-0.034)
[2023-05-16 18:19] LABS: Influenza A QL RT-PCR Negative (Negative); Influenza B QL RT-PCR Negative (Negative); RSV RNA, RT-PCR Negative (Negative); SARS-CoV-2 RNA PCR Negative (Negative)
--- NOTE | 2023-05-16 19:43 | ED.URI ---
HPI - URI/Sore Throat General Chief Complaint: Upper Respiratory Infection Stated Complaint: coughing Time Seen by Provider: 05/16/23 17:16 Source: patient Mode of arrival: ambulatory Limitations: no limitations History of Present Illness HPI Narrative: 77-year-old cough and congestion for the last 2 weeks. Has been getting much better. Has been on amoxicillin. No chest pain or shortness of breath. Has these coughing fits occasionally that concern her. Related Data Home Medications Medication Instructions Recorded Confirmed multivitamin 1 tablet PO DAILY 07/24/19 02/08/23 cetirizine 10 mg capsule (Zyrtec) 10 mg PO DAILY 06/11/21 02/08/23 Allergies Allergy/AdvReac Type Severity Reaction Status Date / Time prednisone AdvReac Unknown Flush Verified 05/16/23 17:10 purple rxn Review of Systems Review of Systems: All systems reviewed & are unremarkable except as noted in HPI and below PMFSH Past Medical History Medical History Belching Bloating symptom Bronchitis Essential (primary) hypertension Gastro-esophageal reflux disease without esophagitis Obesity Stress Tietze's disease Vitamin D deficiency, unspecified Surgical History Surgical History H/O breast biopsy (~2001) Hx of tubal ligation (~1981) Family History Family History Father Hypertension Mother Hypertension Grandparent Cerebrovascular accident Carcinoma of colon, Onset Age: 58 Social History Social History Smoking status: Never smoker Alcohol intake: current Drinks per week: 1 Substance use: never Substance use type: does not use Lack of Transportation: No Lack of Food: Never True Current Housing: I Have Housing Concerned About Future Housing: No Difficulty Paying Gas/Electric Bills: No Difficulty Paying for Meds: No Currently Unemployed: No Education: High School Diploma/GED Difficulty w/ Childcare or Family Care: No Living arrangements: with family Additional living arrangements comments: Occupation/Education: retired Gender identity (if verbalized by the patient): Female Sexual Orientation (if Verbalized by the Patient): Straight or Heterosexual Spiritual care concerns: No Exam Narrative: Constitutional: Generally well appearing, no acute distress Head: Atraumatic, no deformities. Eyes: Pupils equal, round, and reactive to light. Neck: Supple, no tracheal deviation, no JVD. ENMT: Mucous membranes moist Cardiovascular: S1, S2 auscultated. No murmurs, rubs, or gallops. No S3/S4. Normal Distal pulses. No peripheral edema. Respiratory: Lung sounds equal. No wheezes, rales, or rhonchi. Gastrointestinal: Abdomen was soft and non-tender. Non-distended. No rebound or guarding. Genitourinary: Deferred Musculoskeletal: Normal muscle tone and bulk. No obvious deformities or tenderness over extremities. Skin: No rashes. Neurological: Strength 5/5 in extremities. Cranial nerves I-XII grossly intact. Distal sensation intact. Mental Status: Awake, alert and oriented x3. Follows commands Course Vital Signs Vital signs: Vital Signs Temperature 36.4 C 05/16/23 17:12 Pulse Rate 79 05/16/23 17:12 Respiratory Rate 18 05/16/23 17:12 Blood Pressure 155/86 H 05/16/23 17:12 Pulse Oximetry 100 05/16/23 17:12 Oxygen Delivery Room Air 05/16/23 17:12 Temperature 36.4 C 05/16/23 17:12 Pulse Rate 79 05/16/23 17:12 Respiratory Rate 18 05/16/23 17:12 Blood Pressure 155/86 H 05/16/23 17:12 Pulse Oximetry 100 05/16/23 17:12 Oxygen Delivery Room Air 05/16/23 17:12 MDM - URI/Sore Throat MDM Narrative Medical decision making narrative: Well-appearing 77-year-old female presenting for cough, congestion, an
[2023-05-16] MEDS: DOXYCYCLINE HYCLATE 100 MG TABLET PO (19:58)
[2023-05-16] MEDS: BENZONATATE 100 MG CAPSULE PO (19:59)
[2023-05-16] MEDS: AMOXICILLIN/CLAVULANATE K 875-125 MG TAB 1 TABLET PO (19:59)
[2023-05-16 20:05] VITALS: BP 139/91; PULSE 74; RESP 20; O2SAT 99
== END 2023-05-16 20:07 | disposition home or self-care (01) ==
PROVIDERS: Physician Assistant; Emergency Provider Emergency Medicine; PCP Family Medicine
DX: J40 Bronchitis, not specified as acute or chronic (principal); Z20.822 Contact with and (suspected) exposure to COVID-19; I10 Essential (primary) hypertension; E66.9 Obesity, unspecified; E55.9 Vitamin D deficiency, unspecified; Z68.30 Body mass index [BMI] 30.0-30.9, adult; K21.9 Gastro-esophageal reflux disease without esophagitis; I44.0 Atrioventricular block, first degree; R94.31 Abnormal electrocardiogram [ECG] [EKG]
CPT/HCPCS: 36415; 71046; 80053; 84484; 85025; 85610; 85730; 87637; 93005; 99284; A9270

== ENCOUNTER 2023-07-13 10:26 | Emergency (ER) | payer MEDICARE, SELFPAY ==
[2023-07-13 10:27] VITALS: BP 185/84; PULSE 57; RESP 16; TEMP 36.3; O2SAT 100
--- NOTE | 2023-07-13 10:32 | PC.NURSE ---
Pt decided not to be seen. States she is going to go home and take her BP meds and rest.
--- NOTE | 2023-07-13 10:33 | PC.NURSE ---
walked out before seeing provider
== END 2023-07-13 10:47 | disposition left against medical advice (07) ==
LOC: ANHED 10:37
PROVIDERS: PCP Family Medicine
DX: I10 Essential (primary) hypertension (principal)
CPT/HCPCS: 99199

== ENCOUNTER 2023-08-05 09:03 | Outpatient (CLI) | payer MEDICARE, SELFPAY | END 2023-08-05 09:04 | disposition home or self-care (01) | LOC: ANHGOSHLAB 09:05 | PROVIDERS: PCP Family Medicine; Visit Provider Family Medicine | DX: E03.9 Hypothyroidism, unspecified (principal) | CPT/HCPCS: 36415; 84443 ==

== ENCOUNTER 2023-08-06 09:58 | Emergency (ER) | payer MEDICARE, SELFPAY ==
[2023-08-06 10:10] VITALS: BP 127/65; PULSE 71; RESP 12; TEMP 36.5; O2SAT 98
--- NOTE | 2023-08-06 10:32 | ED.SKABFB ---
HPI - Skin/Abscess/Foreign Bdy General Chief complaint: Skin/Abscess/Foreign Body Stated complaint: Bite Right Arm Time Seen by Provider: 08/06/23 10:20 Source: patient and RN notes reviewed Mode of arrival: ambulatory Limitations: no limitations History of Present Illness HPI narrative: Patient presents today complaining of several insect bites to her right arm. She noted them upon waking up yesterday. She is unsure what bit her. States they itch profusely. She has tried some anti-itch cream without much relief. Related Data Home Medications Medication Instructions Recorded Confirmed multivitamin 1 tablet PO DAILY 07/24/19 02/08/23 cetirizine 10 mg capsule (Zyrtec) 10 mg PO DAILY 06/11/21 02/08/23 Allergies Allergy/AdvReac Type Severity Reaction Status Date / Time prednisone AdvReac Unknown Flush Verified 05/16/23 17:10 purple rxn Review of Systems Review of Systems: CONSTITUTIONAL: Denies body aches, fever, chills, or sweats. EYES: Denies visual changes, redness, or discharge. ENT: Denies rhinorrhea, congestion, sore throat, or otalgia. CARDIOVASCULAR: Denies chest pain, palpitations, or edema. RESPIRATORY: Denies cough or dyspnea. GASTROINTESTINAL: Denies abdominal pain, nausea, vomiting, or diarrhea. GENITOURINARY: Denies dysuria or hematuria. SKIN: + insect bites to right arm MUSCULOSKELETAL: Denies back pain, joint pain, or myalgia. NEUROLOGIC: Denies headache, numbness, tingling, or weakness. PSYCH: Denies depression or anxiety. PMFSH Past Medical History Medical History Belching Bloating symptom Bronchitis Essential (primary) hypertension Gastro-esophageal reflux disease without esophagitis Obesity Stress Tietze's disease Vitamin D deficiency, unspecified Surgical History Surgical History H/O breast biopsy (~2001) Hx of tubal ligation (~1981) Family History Family History Father Hypertension Mother Hypertension Grandparent Cerebrovascular accident Carcinoma of colon, Onset Age: 60 Social History Social History Smoking status: Never smoker Alcohol intake: current Drinks per week: 1 Substance use: never Substance use type: does not use Lack of Transportation: No Lack of Food: Never True Current Housing: I Have Housing Concerned About Future Housing: No Difficulty Paying Gas/Electric Bills: No Difficulty Paying for Meds: No Currently Unemployed: No Education: High School Diploma/GED Difficulty w/ Childcare or Family Care: No Living arrangements: with family Additional living arrangements comments: Occupation/Education: retired Gender identity (if verbalized by the patient): Female Sexual Orientation (if Verbalized by the Patient): Straight or Heterosexual Spiritual care concerns: No Comments Reviewed Exam Narrative: GENERAL: Well-appearing, well-nourished, and in no acute distress. HEAD: Normocephalic, atraumatic. EYES: EOMI. No redness or drainage. Conjunctivae normal. ENT: Mucous membranes pink and moist. NECK: Normal AROM. CHEST: No respiratory distress. EXTREMITIES: Normal range of motion. No edema. SKIN: Warm, dry, no rash. Capillary refill normal. Normal skin turgor. Patient has for insect bites to her arm: 1 to the right wrist, 1 to the right forearm, and to to the inner upper arm. Once the right forearm is rather large, measuring approximately 5 cm round erythema. None have induration, fluctuance. No red streaking or edema of the arm. Distal sensation intact. Capillary refill normal. Radial pulse normal. Full range of motion of the arm. NEURO: No focal deficits. Alert and oriented x3. Gait steady. PSYCH: Normal affect. No signs of depression or anxiet
== END 2023-08-06 10:41 | disposition home or self-care (01) ==
PROVIDERS: Emergency Provider Nurse Practitioner; PCP Family Medicine
DX: S60.861A Insect bite (nonvenomous) of right wrist, initial encounter (principal); S50.861A Insect bite (nonvenomous) of right forearm, initial encounter; S40.861A Insect bite (nonvenomous) of right upper arm, initial encounter; W57.XXXA Bitten or stung by nonvenomous insect and other nonvenomous arthropods, initial encounter; I10 Essential (primary) hypertension; K21.9 Gastro-esophageal reflux disease without esophagitis; E66.9 Obesity, unspecified; Z68.29 Body mass index [BMI] 29.0-29.9, adult
CPT/HCPCS: 99213; G0463

== ENCOUNTER 2023-08-09 09:19 | Outpatient (CLI) | payer MEDICARE, SELFPAY ==
[2023-08-09 13:13] LABS: Alanine Aminotransferase 20 U/L (6-35); Albumin Level 4.2 g/dL (3.5-5.1); Alkaline Phosphatase 97 U/L (38-126); Anion Gap 6 mmol/L (4-12); Aspartate Amino Transferase 40 U/L (14-36); Bilirubin,Total 0.7 mg/dL (0.2-1.3); Blood Urea Nitrogen 17 mg/dL (7-17); Calcium 9.4 mg/dL (8.4-10.2); Carbon Dioxide 25 mmol/L (22-30); Chloride 106 mmol/L (98-107); Estimated Glomerular Filt Rate > 60; Glucose 94 mg/dL (65-110); Potassium 4.6 mmol/L (3.4-5.0); Sodium 137 mmol/L (137-145)
[2023-08-09 16:41] LABS: Hemoglobin A1C 5.6 % (<5.7)
== END 2023-08-09 09:20 | disposition home or self-care (01) ==
PROVIDERS: PCP Family Medicine; Visit Provider Family Medicine
DX: H35.00 Unspecified background retinopathy (principal); Z79.899 Other long term (current) drug therapy
CPT/HCPCS: 36415; 80053; 83036

== ENCOUNTER 2023-10-08 10:16 | Emergency (ER) | payer MEDICARE, SELFPAY ==
[2023-10-08 10:25] VITALS: BP 138/77; PULSE 68; RESP 16; TEMP 36.4; O2SAT 96
[2023-10-08 10:28] VITALS: BP 138/77; PULSE 68; RESP 16; TEMP 36.4; O2SAT 96
--- NOTE | 2023-10-08 10:39 | ED.URI ---
HPI - URI/Sore Throat General Chief Complaint: Upper Respiratory Infection Stated Complaint: SINUS PAIN/PRESSURE Time Seen by Provider: 10/08/23 10:40 Source: patient Mode of arrival: ambulatory Limitations: no limitations History of Present Illness HPI Narrative: Prescriptions an 78-year-old female presents to clinic today with complaints of sinus pain and congestion x1-2 days. She has not taken anything for her sinus pain. She denies any known sick contacts. She denies shortness of breath, cough, sore throat, fever/chills, or chest pain. MD elicited complaint: cough, nasal congestion and sinus pain Related Data Home Medications Medication Instructions Recorded Confirmed multivitamin 1 tablet PO DAILY 07/24/19 10/08/23 cetirizine 10 mg capsule (Zyrtec) 10 mg PO DAILY 06/11/21 10/08/23 Allergies Allergy/AdvReac Type Severity Reaction Status Date / Time prednisone AdvReac Unknown Flush Verified 10/08/23 10:26 purple rxn Review of Systems Review of Systems: Pertinent positives per HPI. Patient denies any fever, chills, rash, visual changes, dizziness, cough, shortness of breath, chest pain, palpitations, nausea, vomiting, diarrhea, constipation, abdominal pain, or any urinary issues. PMFSH Past Medical History Medical History Belching Bloating symptom Bronchitis Essential (primary) hypertension Gastro-esophageal reflux disease without esophagitis Obesity Stress Tietze's disease Vitamin D deficiency, unspecified Surgical History Surgical History H/O breast biopsy (~2001) Hx of cataract surgery Hx of tubal ligation (~1981) Family History Family History Father Hypertension Mother Hypertension Grandparent Cerebrovascular accident Carcinoma of colon, Onset Age: 60 Social History Social History Smoking status: Never smoker Alcohol intake: current Drinks per week: 1 Substance use: never Substance use type: does not use Lack of Transportation: No Lack of Food: Never True Current Housing: I Have Housing Concerned About Future Housing: No Difficulty Paying Gas/Electric Bills: No Difficulty Paying for Meds: No Currently Unemployed: No Education: High School Diploma/GED Difficulty w/ Childcare or Family Care: No Living arrangements: with family Additional living arrangements comments: Occupation/Education: retired Gender identity (if verbalized by the patient): Female Sexual Orientation (if Verbalized by the Patient): Straight or Heterosexual Spiritual care concerns: No Comments At the time of my signature, I reviewed and agree with the nursing past medical, surgical, social, and family history. There is no relevant family history pertinent to the patient complaint. Exam Narrative: General: Well-developed, well nourished, in no apparent distress Head: Normocephalic, atraumatic Eyes: Pupils equally round and reactive to light bilaterally, EOM intact, sclera and conjunctive clear, no discharge, lids normal Ears: TMs intact and clear, ear canals clear, no drainage, grossly hearing normal. Nose: Nares patent, mild inflammation, positive frontal and maxillary sinus tenderness. Mouth: Oral pharynx without lesions or masses, good dentition, MMM. Neck: Supple, trachea midline, enlargement of anterior cervical nodes with tenderness to palpation, no thyroid masses or goiter palpable. Cardio: Regular rate and rhythm, s1 and s2 normal, no murmur appreciated. Resp: Clear to auscultation bilaterally, no rhonchi, rales, wheezing or rubs Course Course Emergency Course: Portions of this record may have been created with voice recognition software. Level of Care: Express Care Visit Vital Signs Vital s
== END 2023-10-08 11:09 | disposition home or self-care (01) ==
PROVIDERS: Emergency Provider Nurse Practitioner Family; PCP Family Medicine
DX: J06.9 Acute upper respiratory infection, unspecified (principal); Z20.822 Contact with and (suspected) exposure to COVID-19; I10 Essential (primary) hypertension; K21.9 Gastro-esophageal reflux disease without esophagitis; E66.9 Obesity, unspecified; Z68.30 Body mass index [BMI] 30.0-30.9, adult
CPT/HCPCS: 87426; 99213; G0463

== ENCOUNTER 2023-11-02 11:50 | Outpatient (CLI) | payer MEDICARE, SELFPAY ==
--- NOTE | ~2023-11-02 | MM_ITS ---
EXAMINATION: MM screening sandy BI w natalia HISTORY: Screening TECHNIQUE: Craniocaudal and mediolateral oblique 3-D tomosynthesis images were obtained and synthetic 2-D images were generated. CAD analysis was submitted and interpreted. COMPARISON: Comparison to multiple prior studies sequentially, with oldest reviewed study dated 12/03. BREAST PARENCHYMAL COMPOSITION: Not dense: There are scattered areas of fibroglandular density.. FINDINGS: There is no evidence of suspicious mass, calcification, or architectural distortion to sugg est malignancy in either breast. There has been no suspicious interval change. IMPRESSION: 1. No mammographic evidence of malignancy. 2. Recommend routine screening mammography in one year. BI-RADS Category 1: Negative Reviewed, dictated and finalized at location B.
== END 2023-11-02 11:51 ==
LOC: MICIMG 11:51
PROVIDERS: PCP Family Medicine; Visit Provider Family Medicine
DX: Z12.31 Encounter for screening mammogram for malignant neoplasm of breast (principal)
CPT/HCPCS: 77063; 77067

== ENCOUNTER 2023-11-03 13:57 | Outpatient (CLI) | payer MEDICARE, SELFPAY ==
--- NOTE | ~2023-11-03 | XR_ITS ---
EXAMINATION: XR chest 2V DATE: 11/03/2023 14:20 INDICATION: Cough, unspecified. TECHNIQUE: Frontal and lateral views of the chest were obtained. COMPARISON: Chest 2 view 05/16/2023 FINDINGS: There is mild scarring at the lung apices. No pleural effusion or pneumothorax. The heart s ize normal. IMPRESSION: 1. Mild scarring at the lung apices. Reviewed, dictated and finalized at location A.
== END 2023-11-03 13:58 ==
LOC: MICIMG 13:58
PROVIDERS: PCP Nurse Practitioner Family; Visit Provider Nurse Practitioner Family
DX: R91.8 Other nonspecific abnormal finding of lung field (principal); Z12.31 Encounter for screening mammogram for malignant neoplasm of breast
CPT/HCPCS: 71046

== ENCOUNTER 2024-01-17 08:09 | Outpatient (CLI) | payer MEDICARE, SELFPAY ==
--- NOTE | ~2024-01-17 | DEXA_ITS ---
Bone Density Report Name: LINDA ROSALES Age: 78 Sex: Female Ethnicity: White Date of : 1945 Indication: postmenopausal; screening for osteoporosis; Referring Provider: PABLO BOWENS Study: Bone densitometry was performed. Exam Date: January 17, 2024 Accession number: [id number] Bone Density: Region BMD T-score Z-score Classification AP Spine(L1-L4) 0.961 -0.8 1.9 Normal Femoral Neck (Left) 0.580 -2.4 -0.1 Osteopenia Total Hip (Left) 0.742 -1.6 0.4 Osteopenia Femoral Neck (Right) 0.625 -2.0 0.3 Osteopenia Total Hip (Right) 0.734 -1.7 0.4 Osteopenia Total Hip Mean 0.738 -1.7 0.4 Osteopenia World Health Organization criteria for BMD impression classify patients as: Normal (T-score at or above -1.0), Osteopenia (T-score between -1.0 and -2.5), or Osteoporosis (T-score at or below -2.5). 10-year Fracture Risk(1): Major Osteoporotic Fracture 17% Hip Fracture 5.6% Reported Risk Factors: [place] (), Neck BMD=0.580, BMI=30.8 (1) FRAX(R) Version 3.08. Fracture probability calculated for an untreated patient. Fracture probability may be lower if the patient has received treatment. Clinical Information Provided by Patient: Has used the following medications: Fosamax (i.e. alendronate), Vitamin D Patient maximum height was 65 Menopause Age: 38 No regular weight bearing exercise Drinks caffeinated beverages Onset of menses at age 10 Number of children 2 Impression: The patient has low bone mass, based on the Left Femoral Neck T-score. The patient has an estimated ten-year risk of hip fracture of 5.6% and an estimated ten-year risk of major fracture of 17%, based on the WHO FRAX algorithm. Discussion: BONE DENSITY IS LOW AT ONE OR MORE SKELETAL SITES. THE PATIENT'S BMD AND CLINICAL RISK FACTORS CONTRIBUTE TO THIS PATIENT'S INCREASED RISK OF FRACTURE. This patient's lowest T-score is low at one or more skeletal sites. It meets the World Health Organization's (WHO) criteria for ?low bone mass? (T-score between -1.0 and -2.5). The patient's 10-year risk of hip fracture as calculated by FRAX exceeds the threshold where pharmacological therapy is recommended by the National Osteoporosis Foundation (NOF). However, all treatment decisions require clinical judgment and consideration of individual patient factors, including patient preferences, comorbidities, previous drug use, risk factors not captured in the FRAX model (e.g., frailty, falls, vitamin D deficiency, increased bone turnover, interval significant decline in bone density) and possible under or overestimation of fracture risk by FRAX. The patient should follow a healthful lifestyle (good nutrition with adequate calcium and vitamin D, and appropriate weight-bearing exercise). Follow-Up: Consider a repeat BMD and Vertebral Fracture Assessment (VFA) exam in 2 years or sooner if medically necessary, to reassess this patient's status. Reported by: LILLY on 01/17/2024 9:02:00 AM. Reviewed, dictated and finalized at location AJarret MERRILL
== END 2024-01-17 08:10 | disposition home or self-care (01) ==
LOC: ANHIMG 08:11
PROVIDERS: PCP Nurse Practitioner Family; Visit Provider Family Medicine
DX: Z78.0 Asymptomatic menopausal state (principal); M81.0 Age-related osteoporosis without current pathological fracture; M85.852 Other specified disorders of bone density and structure, left thigh; M85.851 Other specified disorders of bone density and structure, right thigh
CPT/HCPCS: 77080

== ENCOUNTER 2024-03-27 11:44 | Outpatient (CLI) | payer MEDICARE, SELFPAY ==
--- NOTE | ~2024-03-27 | XR_ITS ---
Left Hand Technique: PA, oblique, and lateral views were obtained. Clinical History: Arthritis Findings: No acute fracture or dislocation is seen. Osseous alignment is anatomic. There is moderate to severe degenerative change of the first CMC joint.. Soft tissues are unremarkable. 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 Reviewed, dictated and finalized at location . 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
--- OUTSIDE RECORDS SUMMARY | 2024-03-30 13:04 | XMS_ITS | Clinical Summary ---
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 Active Cholecalcifero l, Vitamin D3, 2,000 unit Capsule Take by mouth. Activ e multivitamin (DAILY-ALYSIA) tablet Take 1 Tablet by mouth daily. Active aspirin (ECOTRIN EC) 81 mg Tablet, Delayed Release (E.C.) Take 81 mg by mouth daily. Active calcium-vitami n D3 (CALTRATE 600+D) 600 mg(1,500mg) -200 unit Tablet Take 1 Tablet by mouth. Active triamcinolone acetonide (KENALOG) 0.1 % CreamIndicatio ns:Pruritus ani Apply to affected area 2 times daily. 35 Gram 0 6 Active sodium, potassium and magnesium sulfates (SUPREP BOWEL PREP KIT) 17.5-3.13-1.6 gram Recon Soln Take 177 mL by mouth see administration instructions. 354 mL 0 6 Active clobetasoL (TEMOVATE) 0.05 % Cream Apply to affected area 2 times daily. 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 Gender Identity Not on file Sexual Orientation Not on file Last Filed Vital Signs Vital Sign Reading Time Taken Comments Blood Pressure 128/79 05/02/2015 12:17 PM COTTON INSPECTOR rt wrist Pulse 60 05/02/2015 12:17 PM COTTON INSPECTOR Temperature - - Respiratory Rate - - Oxygen Saturation - - Inhaled Oxygen Concentration - - Weight 74.8 kg (165 lb) 05/02/2015 12:17 PM COTTON INSPECTOR Height 167.6 cm (5' 6 ) 05/02/2015 12:17 PM COTTON INSPECTOR Body Mass Index 26.63 05/02/2015 12:17 PM COTTON INSPECTOR Plan of Treatment Health Maintenance Due Date Last Done Comments DTAP/TDAP/TD VACCINES (1 - Tdap) 06/17/1962 PNEUMOCOCCAL VACCINE 65+ YEA RS (1 of 1 - PCV) 06/17/1993 ZOSTER VACCINE (1 of 2) 06/17/1993 RSV VACCINE (60+ or ) (1 - 1-dose 75+ series) 06/17/2018 INFLUENZA VACCINE (#1) 2023 OSTEOPOROSIS SCREENING Completed 5, 10/25/2012, 09/29/2010, Additional history exists Procedures Procedure Name Priority Date/Time Associated Diagnosis Comments XR DEXA BONE DENSITY AXIAL 1 OR MORE SITES Routine 11/15/2014 2:30 PM CDT Disorder of bone and cartilage, unspecified from Last 3 Months or Most Recently Relevant to Health Maintenance Results * XR DEXA BONE DENSITY AXIAL 1 OR MORE SITES (11/15/2014 2:30 PM CDT) Anatomical Region Laterality Modality Digital Radiogra phy 11/15/2014 2:19 PM CDT Narrative 11/15/2014 4:01 PM CDT XR DEXA BONE DENSITY AXIAL 1 OR MORE SITES Dictated from Location 1 ([facility]) HISTORY 69 year-old F with post menopausal symptoms. PROCEDURE: Planar images of the lumbar spine and hip(s) using a [employer] DEXA scanner for bone mineral density determination (BMD). Compared to the prior bone density performed 10/25/2012 FINDINGS: Lumbar Spine (L1-L4) 1.003 gm/cm2, T-score: -1.5 ?Prior: 1.002 gm/cm2, +0.1% change Left femoral neck 0.760 gm/cm2, T-score: -2.0 ?Prior: 0.771 gm/cm2, -1.4% change Right femoral neck 0.796 gm/cm2, T-score: -1.7 ?Prior: 0.802 gm/cm2, -0.7% change ?? Comments: None. Detailed report placed in Imaging Section of [facility] EMR. IMPRESSION Osteopenic BMD. Lumbar Spine T-score: -1.5 Left femoral neck T-score: -2.0 Right femoral neck T-score: -1.7 ?? Statistical change: No significant changes since the prior DEXA study. DEFINITIONS: Normal: T-score above -1.0 Osteopenia T-score less than -1.0 and above -2.5 Osteoporosis: T-score < -2.5 FOLLOW-UP RECOMMENDATIONS: Patients without high risk factors for osteoporosis: T-score -1.0 to -1.5 - Consider repeat BMD in 5-10 years T-score -1.5 to -2.0 - Consider repeat BMD in 3-5 years T-score -2.0 to - 2.5 - Consider repeat BMD every 2 years Patients on treatment for osteoporosis: 1-2 years after initiation of treatment and every 2 [address] Otoniel Hart DO Procedure Note Otoniel Hart DO - 11/15/2014 XR DEXA BONE DENSITY AXIAL 1 OR MORE SITES Dictated from Location 1 ([facility]) HISTORY 69 year-old F with post menopausal symptoms. PROCEDURE: Planar images of the lumbar spine and hip(s) using a [employer] DEXA scanner for bone mineral density determination (BMD). Compared to the prior bone density performed 10/25/2012 FINDINGS: Lumbar Spine (L1-L4) 1.003 gm/cm2, T-score: -1.5 Prior: 1.002 gm/cm2, +0.1% change Left femoral neck 0.760 gm/cm2, T-score: -2.0 Prior: 0.771 gm/cm2, -1.4% change Right femoral neck 0.796 gm/cm2, T-score: -1.7 Prior: 0.802 gm/cm2, -0.7% change Comments: None. Detailed report placed in Imaging Section of [facility] EMR. IMPRESSION Osteopenic BMD. Lumbar Spine T-score: -1.5 Left femoral neck T-score: -2.0 Right femoral neck T-score: -1.7 Statistical change: No significant changes since the prior DEXA study. DEFINITIONS: Normal: T-score above -1.0 Osteopenia T-score less than -1.0 and above -2.5 Osteoporosis: T-score < -2.5 FOLLOW-UP RECOMMENDATIONS: Patients without high risk factors for osteoporosis: T-score -1.0 to -1.5 - Consider repeat BMD in 5-10 years T-score -1.5 to -2.0 - Consider repeat BMD in 3-5 years T-score -2.0 to - 2.5 - Consider repeat BMD every 2 years Patients on treatment for osteoporosis: 1-2 years after initiation of treatment and every 2 years [address] Otoniel Hart, DO us Ricky Tapia MD DIAGNOSTIC IMAGING ORDERABLES Fi nal Result from Last 3 Months or Most Recently Relevant to Health Maintenance Insurance MEDICARE PART A AND B Care Teams [employer] Grinder Operator Relationship Specialty Start Date End Date Andrzej Farrell MD [address] [place] [address] PCP - General 08/31/02
--- OUTSIDE RECORDS SUMMARY | 2024-03-30 13:04 | XMS_ITS | Continuity of Care Document ---
Author Organization [facility] Address [address] [place] [address] Phone Care Team Providers Care Air Sampling And Monitoring Name Role Phone Root OD, Shady Unavailable [...] Diagnoses Date Provider Providers Copied on Encounter [facility], [address], [place], [place], [id number], [place] tel:[phone] [facility] No Information 9-201 0 Root OD Shady. [address] , [address], [place], [address], [place]. tel:[phone] [facility], [address], [place], [place], [id number], [place] tel:[phone] [facility] No Information 2-201 0 [facility] . [address], [address], [place], [place], [address], . tel:[phone] Consulting Provider: Stephanie Ramírez, [address] [place] [address], [facility]. tel:[phone] [facility], [address], [place], [place], [address], [place] tel:[phone] [facility] No Information 1 5-200 9 [facility] . [address], [address], [place], [place], [address], . tel:[phone] Referring Provider: Shady Root OD A, [address], [place], [place], [facility]. tel:[phone] lting Provider: Stephanie Ramírez, [address] [place] [address], [facility]. tel:[phone] [facility], [address], [place], [place], [address], [place] tel:[phone] [facility] No Information 1200 9 Doisy Edward. [address] , [address], [place], [address], [place]. tel:[phone] [facility], [address], [place], [place], [address], [place] tel:[phone] [facility] No Information 3 1-200 9 Root OD Shady. [address] , [address], [place], [address], [place]. tel:[phone] [facility], [address], [place], [place], [address], [place] tel:[phone] [facility] No Information Sep-2 6-200 8 Root OD Shady. [address], [address], [place], [address], [place]. tel:[phone] [facility], [address], [place], [place], [address], [place] tel:[phone] [facility] No Information Mar-3 0-200 7 [facility] . [address], [address], [place], [address], [place]. tel:[phone] Consulting Provider: Stephanie Ramírez, [address] [place] [address], [address]. tel:[phone] [facility], [address] [facility] [address], [place], [place], [address], [place] tel:[phone] [facility] No Information Mar-3 0-200 7 [facility] . [address], [address], [place], [address], [place]. tel:[phone] Referring Provider: Farzad Dallas, [address] [place] [address], [address]. tel:[phone] lting Provider: Stephanie Ramírez, [address] [place] [address], [address]. tel:[phone] Family History Family Member Type Diagnosis Age At Onset No Information Payers Payer name Insurance type Covered alliance party ID Authoriza timati(s) Medicare [facility] [id number] [facility] CI [id number] Social History Type Description Quantity Date Captured [...]
--- OUTSIDE RECORDS SUMMARY | 2024-03-30 13:04 | XMS_ITS | Encounter Summary ---
Author Organization [employer] Address 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
--- OUTSIDE RECORDS SUMMARY | 2024-03-30 13:04 | XMS_ITS | Encounter Summary ---
Author Organization [employer] Address 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
--- OUTSIDE RECORDS SUMMARY | 2024-03-30 13:04 | XMS_ITS | Clinical Summary ---
Author Organization [facility] 2 Address [address] [facility] [place] [address] Care Team Providers Care Graphics Intern Name Role Phone Lawrence Banks MD Primary Care Provider [phone] Allergies Active Allergy Reactions Criticality Noted Date Comments Prednisone Itching Low 05/02/2015 Medications clobetasol-emol lient (TEMOVATE E) 0.05 % cream 8 Active cetirizine (ZyrTEC) 10 mg tablet daily. Active cholecalciferol , vitamin D3, (VITAMIN D3 ORAL) TAKE 2000 UNIT Activ e atenolol (TENORMIN) 25 mg tablet daily. Active atorvastatin (LIPITOR) 20 mg tablet TK 1 T PO D 0 Active alendronate (FOSAMAX) 70 mg tablet Take 1 tablet (70 mg total) by mouth every 7 days Take in the morning with a full glass of water, on an empty stomach, and do not take anything else by mouth or lie down for the next 30 min. 12 tablet 3 Active multivitamin (MULTI-DAY ORAL) Take by mouth Active levothyroxine (SYNTHROID) 88 mcg tablet Take 1 tablet (88 mcg total) by mouth decision support analyst before breakfast Active sertraline (ZOLOFT) 50 mg tablet Take 1 tablet (50 mg total) by mouth daily 4 Active Active Problems Problem Noted Date Diagnosed Date Mixed hyperlipidemia 08/16/2023 Fatigue due to excessive exertion 07/05/2023 Essential hypertension 07/05/2023 Age-related osteoporosis wit hout current pathological fracture 10/13/2021 Disorder of bone 08/24/2016 Osteopenia 07/08/2015 Medical History Medical History Date Comments Syncope Bradycardia Hyperlipidemia Thyroid disease Hypertension Family History Medical History Relation Name Comments Heart failure Mother Osteoporosis Mother Family history of osteoporosis - (Added by TW Conv) Hip fracture Neg Hx Relation Name Status Comments Father Mother Social History Tobacco Use Types Packs/Day Years Used Date Smoking Tobacco: Never Smokeless Tobacco: Never Personal Safety Answer Date Recorded Have you ever been in or are you currently in a harmful physical or emotional relationship or is someone making you feel afraid or unsafe? 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 Gender Identity Female 06/28/2023 12:09 PM CDT Sexual Orientation Not on file Obstetrics History Last Filed Vital Signs Vital Sign Reading Time Taken Comments Blood Pressure 126/70 08/16/2023 12:21 PM CDT Pulse 81 08/16/2023 12:21 PM CDT Temperature 36.9 ??C (98.4 ??F) 09/10/2020 1:56 PM CD T Respiratory Rate 16 08/04/2023 12:3 5 PM CDT Oxygen Saturation 97% 08/16/2023 12: 21 PM CDT Inhaled Oxygen Concentration - - Weight 82.4 kg (181 lb 11.2 oz) 024 12:21 PM CDT Height 165.1 cm (5' 5 ) 08/16/2023 12:2 1 PM CDT Body Mass Index 30.24 08/16/2023 12:21 PM CDT Plan of Treatment Health Maintenance Due Date Last Done Comments Depression Screening 1945 DTaP/Tdap/Td Vaccine (1 - Tdap) 06/17/1954 Hepatitis B Screening 06/17/1961 Zoster Vaccine (1 of 2) 06/17/1993 Pneumococcal vaccine 65+ (1 of 1 - PCV) 06/17/2008 Well Visit 65+ 06/17/2008 Osteoporosis Screening-Bone Density Scan 10/08/2023 10/07/2021, 09/10/2020, 09/11/2019, Additional history exists Influenza Vaccine (#1) 2023 12/15/2018, 2017 Fall Risk Assessment 08/03/2024 08/04/2023 Procedures Procedure Name Priority Date/Time Associated Diagnosis Comments DEXA APPENDICULAR BONE DENSITY Schedule Routine, Read Routine (OP Routine) 10/07/2021 2:58 PM CDT Osteopenia of multiple sites from Last 3 Months or Most Recently Relevant to Health Maintenance Results * Dexa Appendicular Bone Density (10/07/2021 2:58 PM CDT) Anatomical Region Laterality Modality Wrist N/A Radiographic Kayy ging Narrative 10/07/2021 3:50 PM CDT Patient Name: Merissa Rosales Date of : 1945 Date of scan: 10/07/2021 Bone mineral density was performed on a [employer] Discovery Densitometer. ?? Based on machine cross-calibration and precision studies the least significant changes of this densitometer is 0.024 g/cm2 at the spine, 0.020 g/cm2 at the total proximal femur, and 0.014g/cm2 at the forearm. HISTORY: This is a 76 y.o. postmenopausal female with a history of osteoporosis, thyroid disease, and vitamin D deficiency. She reports that she has never smoked. She has never used smokeless tobacco. Currently on treatment with vitamin D, alendronate (Fosamax), and thyroid hormone and previously treated with risedronate (Actonel), ibandronate (Boniva), raloxifene (Evista), and hormone replacement therapy. INDICATIONS: Menopause status, treatment monitoring, vitamin D deficiency, and history of osteoporosis. FINDINGS: BONE MINERAL DENSITY OF THE LUMBAR SPINE Bone Mineral Density (BMD) of the lumbar spine was measured from L1-L3 and the average density was calculated to be 0.883 gm/cm2. This corresponds to a T-score (standard deviations from the mean of young adults) of -1.2. When compared to the previous study of 09/10/20 there has been no significant changes in bone density. BONE MINERAL DENSITY OF THE PROXIMAL FEMUR Bone Mineral Density (BMD) of the left hip total was found to be 0.749 gm/cm2. This corresponds to a T-score standard deviations from the mean of young adults of -1.6. Femoral neck is 0.589 gm/cm2 with a T-score (standard deviations from the mean of young adults) of -2.3. When compared to the previous study of 09/10/20 there has been no significant changes in bone density. SUMMARY: Bone mineral density shows evidence of low bone mass at the lumbar spine and proximal femur and moderately increased fracture risk (Osteopenia). There has been no significant changes in bone density since previous measurement. L4 excluded from bone mineral density analysis of the lumbar spine because of bone density being more than 1 standard deviation discrepant relative to one adjacent vertebra. ??Clinical correlation is recommended. ADDITIONAL COMMENTS: Postmenopausal Women and Men Over 50: Diagnostic criteria: Osteoporosis: BMD at or below -2.5 T-score; Osteopenia (low bone mass): BMD between -1.0 and -2.5 T-score. If the patient has a history of a fragility fracture, a fracture that occurred with trauma equivalent to a fall from a standing position or less, then the diagnosis is osteoporosis regardless of bone density. The history and data sections of the bone mineral density scan were prepared by Nettie Hawley RT(R)(CT)(BD)CBDT who is accredited by the International Society of Clinical Densitometry. The overall patient assessment and scan interpretation were performed by Joaquin Zuniga M.D. who is certified by the International Society of Clinical Densitometry. [id number] Joaquin Zuniga MD IMG DXA PROCEDURES Final Result from Last 3 Months or Most Recently Relevant to Health Maintenance Insurance MEDICARE [facility] MEDICARE [facility] Care Teams Graphics Intern Relationship Specialty Start Date End Date Lawrence Banks MD [address] [place] [address] [address] [place] [address] PCP - General Family Medicine 07/05/23
--- OUTSIDE RECORDS SUMMARY | 2024-03-30 13:04 | XMS_ITS | Encounter Summary ---
Author Organization [facility] Address [address] [place] [address] Care Team Providers Care Aircraft Parts Assembler Name Role Phone Andrzej Farrell MD Primary Care Provider [phone] Encounter Details Date Type Department Care Team (Late st Contact Info) Description 10/06/2016 Lab Requisition [facility] [address] [place] [address] 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 ??Values above the upper limit of the reference range are common from the 31st to 40th week of . ??High negative predictive values for DVT have been reported with the current methodology, as part of a comprehensive medical examination, including risk stratification. Various clinical studies utilizing this method have shown that a result of <0.5 mcg/ml FEU excludes deep vein thrombosis and pulmonary embolism with high sensitivity when used in conjunction with a non-high clinical pre-test probability assessment. Blood Collection / Unknown 10/06/2016 1:01 PM CDT 10/06/2016 1:02 PM CDT External Provider [facility] HEMATOLOGY ORDERABLES Fi nal Result [facility]# [id number] [address] [place] [address] documented in this encounter Visit Diagnoses Not on filedocumented in this encounter Care Teams Aircraft Parts Assembler Relationship Specialty Start Date End Date Andrzej Farrell MD [address] [place] [address] PCP - General 08/31/02 documented as of this encounter
--- OUTSIDE RECORDS SUMMARY | 2024-03-30 13:04 | XMS_ITS | Encounter Summary ---
Author Organization [employer] Address [address] [place] [address] Care Team Providers Care Leather Carver Name Role Phone Andrzej Farrell MD Primary Care Provider Encounter Details Date Type Department Care Team (Late st Contact Info) Description 09/13/2002 Outpatient Historical [facility] [address] 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
--- OUTSIDE RECORDS SUMMARY | 2024-03-30 13:04 | XMS_ITS | Referral Summary ---
Author Organization [facility] 2 Address [address] [facility] [place] [address] Care Team Providers Care Studio Operator Name Role Phone Lawrence Banks MD Primary Care Provider [phone] Allergies Active Allergy Reactions Criticality Noted Date [...] 1 tablet (88 mcg total) by mouth furniture fabricator before breakfast Active sertraline (ZOLOFT) 50 mg tablet Take 1 tablet (50 mg total) by mouth daily 4 Active Active Problems Problem Noted Date Diagnosed Date Mixed hyperlipidemia 08/16/2023 Fatigue due to excessive exertion 07/05/2023 Essential hypertension 07/05/2023 Age-related osteoporosis wit hout current pathological fracture 10/13/2021 Disorder of bone 08/24/2016 Osteopenia 07/08/2015 Social History Tobacco Use Types Packs/Day Years [...] on file 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 ?? Based on machine cross-calibration [...] by the International Society of Clinical Densitometry. [id number] Joaquin Zuniga MD IMG DXA PROCEDURES Final Result from Last 3 Months or Most Recently Relevant to Health Maintenance Insurance MEDICARE [facility] MEDICARE [facility] Care Teams Studio Operator Relationship Specialty Start Date End Date Lawrence Banks MD [address] [place] [address] [id number] PCP - General Family Medicine 07/05/23
--- OUTSIDE RECORDS SUMMARY | 2024-03-30 13:04 | XMS_ITS | Encounter Summary ---
Author Organization [facility] Address [address] [place] [address] Care Team Providers Care Graphic Arts Instructor Name Role Phone Andrzej Farrell MD Primary Care Provider [phone] Encounter Details Date Type Department Care Team (Latest Contact Info) Description 09/06/2008 Outpatient Historical [facility] Bailey Olmos MD [address] [facility] [address] [place] [address] Special Screening for Osteoporosis Social History Tobacco Use Types Packs/Day Years Used Date Smoking Tobacco: Never Assessed Comments Unknown Sex and Gender Information Value Date Recorded Sex Assigned at Not on file 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 [facility] ? [address] ?[place], [place] ??[address] ?Admit Date: 09/06/2008 ? MERISSA ROSALES J ?Sex: F ?Admit Prov: BAILEY OLMOS ? Date: 1945 ?Primary Care Prov: ANDRZEJ FARRELL ?CMRN: [id number] ?Room: IMGN-A ? SSN: [id number] ? IMAGING SERVICES ?Ordering Prov: N/A ? Accession Number: [id number] ?Interpretation ? Examination: ??Bone Density Study (DEXA) ? Clinical History: 63 year-old postmenopausal female. Monitor for ? osteoporosis. ? Findings: ? Lateral radiograph of the lumbar spine: No evidence of fracture. ? Lumbar Spine (L 1-4 ??) spine bone mineral density is 1.00 g/sq cm which ? corresponds to a T-score of -1.5. ? Femoral neck densities: ? Left femoral neck bone mineral density is 0.74 g/sq cm which corresponds to ? a T-score of -2.0. ? Right femoral neck bone mineral density is 0.76 g/sq cm which corresponds ? to a T-score of -1.8. ? Impressions: ? Lumbar spine: This patient's bone mineral density of the spine is ? osteopenic which is normal for age when compared to the normal range of ? young adults and present fracture risk is considered to be low. ? Hips: This patient's bone mineral density of the hip is osteopenic when ? compared to the normal range of young adults and present fracture risk is ? considered to be low. ? Comments: None. ? Detailed report to follow. ? . ? Dictated by: ??MARICRUZ JONES ? 09/06/2008 10:32 ? Electronically signed by: ??MARICRUZ JONES ? 09/06/2008 10:33 Procedure Note Maricruz Jones MD - 09/06/2008 [facility] [address] [place], [place] [address] Admit Date: 09/06/2008 MERISSA ROSALES Sex: F Admit Prov: BAILEY OLMOS Date: 1945 Primary Care Prov: AYDIN ANDRZEJ M CMRN: [id number] Room: [facility] SSN: [id number] IMAGING SERVICES Ordering Prov: N/A Interpretation Examination: Bone Density Study (DEXA) Clinical History: 63 year-old postmenopausal female. Monitor for osteoporosis. Findings: Lateral radiograph of the lumbar spine: No evidence of fracture. Lumbar Spine (L 1-4 ) spine bone mineral density is 1.00 g/sq cmwhich corresponds to a T-score of -1.5. Femoral neck densities: Left femoral neck bone mineral density is 0.74 g/sq cm whichcorresponds to a T-score of -2.0. Right femoral neck bone mineral density is 0.76 g/sq cm whichcorresponds to a T-score of -1.8. Impressions: Lumbar spine: This patient's bone mineral density of the spine is osteopenic which is normal for age when compared to the normal rangeof young adults and present fracture risk is considered to be low. Hips: This patient's bone mineral density of the hip is osteopenicwhen compared to the normal range of young adults and present fracturerisk is considered to be low. Comments: None. Detailed report to follow. . Dictated by: MARICRUZ JONES 09/06/2008 10:32 Electronically signed by: MARICRUZ JONES 09/06/2008 10:33 us Bailey Olmos MD DIAGNOSTIC IMAGING ORDERABLES Fi nal Result documented in this encounter Visit Diagnoses Diagnosis Special screening for osteoporosis documented in this encounter Care Teams Graphic Arts Instructor Relationship Specialty Start Date End Date Andrzej Farrell MD [address] [place] [address] PCP - General 08/31/02 documented as of this encounter
== END 2024-03-27 11:45 | disposition home or self-care (01) ==
PROVIDERS: PCP Family Medicine; Visit Provider Plastic Surgery
DX: M18.12 Unilateral primary osteoarthritis of first carpometacarpal joint, left hand (principal)
CPT/HCPCS: 73130

== ENCOUNTER 2024-05-23 14:15 | Emergency (ER) | payer MEDICARE, SELFPAY ==
--- NOTE | ~2024-05-23 | XR_ITS ---
XR chest 2V Ordering provider: Maribel Spangler APRN History: 78 years Female with . cough, chest congestion . Comparison: None. FINDINGS: MEDIASTINUM: The cardiac silhouette is not enlarged. Congestive lucho. LUNGS: No effusions or pneumothorax. Minimal opacification in the right lung base suggestive of early pneumonia. Prominent markings in the left lower lobe. Underlying emphysematous changes. The OTHER: No free air under the diaphragm. Degenerative changes of the spine. IMPRESSION: Prominent markings in both lung bases with minimal infiltrate in the right lower lobe suggestive of e marci pneumonia. Reviewed, dictated and finalized at location A. IMPRESSION: Prominent markings in both lung bases with minimal infiltrate in the right lowe r lobe suggestive of early pneumonia.
--- NOTE | 2024-05-23 14:17 | ED_ITS ---
HPI - URI/Sore Throat General Chief Complaint: Upper Respiratory Infection Stated Complaint: COUGH/HEADACHE/TIRED/BACK PAIN Source: patient and RN notes reviewed Mode of arrival: ambulatory Limitations: no limitations History of Present Illness HPI Narrative: Patient is an 78-year-old female who presents to the [facility] with complaints of cough, congestion, and fatigue upon waking this morning. She endorses a frequent nonproductive cough. Denies chest pain or shortness of breath. Denies known fevers. States that she generally does not feel well. Her respirations are unlabored. She does not need any acute distress. Related Data Home Medications ?Medication ?Instructions ?Recorded ?Confirmed ?Last Taken ?Type multivitamin 1 tablet PO DAILY 07/24/19 05/23/24 Unknown History cetirizine 10 mg capsule (Zyrtec) 10 mg PO DAILY 06/11/21 05/23/24 Unknown History Allergies Allergy/AdvReac Type Severity Reaction Status Date / Time prednisone AdvReac Unknown Flush Verified 05/23/24 14:21 purple rxn Review of Systems Review of Systems: CONSTITUTIONAL: Denies fever, chills, or sweats. EYES: Denies visual changes, redness, or discharge. ENT: Denies otalgia and sore throat. Reports congestion. CARDIOVASCULAR: Denies chest pain, palpitations, or edema. RESPIRATORY: Reports cough but denies dyspnea. GASTROINTESTINAL: Denies abdominal pain, nausea, vomiting, or diarrhea. GENITOURINARY: Denies dysuria or hematuria. SKIN: Denies rash or itching. MUSCULOSKELETAL: Denies back pain and joint pain, but reports myalgia. NEUROLOGIC: Reports headache but denies numbness or weakness. Pertinent positives per HPI. PMFSH Past Medical History Medical History Glaucoma Obesity Belching Bloating symptom Bronchitis Tietze's disease Stress Essential (primary) hypertension Gastro-esophageal reflux disease without esophagitis Vitamin D deficiency, unspecified Surgical History Surgical History Hx of cataract surgery H/O breast biopsy (~2001) Hx of tubal ligation (~1981) Family History Family History Father Hypertension Mother Hypertension Grandparent Cerebrovascular accident Carcinoma of colon, Onset Age: 58 Social History Social History Smoking status: Never smoker Alcohol intake: current Drinks per week: 1 Substance use: never Substance use type: does not use Lack of Transportation: No Lack of Food: Never True Current Housing: I Have Housing Concerned About Future Housing: No Difficulty Paying Gas/Electric Bills: No Difficulty Paying for Meds: No Currently Unemployed: No Education: High School Diploma/GED Difficulty w/ Childcare or Family Care: No Living arrangements: with family Additional living arrangements comments: Occupation/Education: retired Gender identity (if verbalized by the patient): Female Sexual Orientation (if Verbalized by the Patient): Straight or Heterosexual Spiritual care concerns: No Comments At the time of my signature, I reviewed and agree with the nursing past medical, surgical, social, and family history. There is no relevant family history pertinent to the patient complaint. Exam Narrative: GENERAL: This is a well-nourished, well-developed patient, in no apparent distress. HEAD: normocephalic, atraumatic. EYES: Sclera clear/white. Vision is grossly intact. EARS: External ears normal. Hearing grossly intact. NOSE: External nose normal with no obvious nasal discharge, nares without redness, no rhinorrhea. THROAT: Mucous membranes moist, posterior pharynx clear. NECK: Neck supple, non-tender without lymphadenopathy, masses or thyromegaly. CARDIOVASCULAR: Regular rate and rhythm without murmurs, gallops, or rubs. RESPIRATORY: Clear to auscultation. Breath sounds equal bilaterally. No wheezes, rales, or rhonchi. GASTROINTESTINAL: Abdomen soft, non-tender, nondistended. Bowel sounds are ac tive. No hepato-splenomegaly, or palpable masses. No guarding. SKIN: warm, intact with no suspicious lesions or rash, good texture and turgor. NEURO: awake, alert, and oriented to person, place and time. There were no obvious focal neurologic abnormalities. Course Course Level of Care: Express Care Visit Vital Signs Vital signs: Vital Signs Temperature 97.6 F 05/23/24 14:27 Pulse Rate 55 L 05/23/24 14:27 Respiratory Rate 16 05/23/24 14:27 Blood Pressure 119/66 05/23/24 14:27 Pulse Oximetry 97 05/23/24 14:27 Temperature 97.6 F 05/23/24 14:27 Pulse Rate 55 L 05/23/24 14:27 Respiratory Rate 16 05/23/24 14:27 Blood Pressure 119/66 05/23/24 14:27 Pulse Oximetry 97 05/23/24 14:27 Reviewed MDM - URI/Sore Throat MDM Narrative Medical decision making narrative: Take antibiotics as directed. May use the inhaler every 4-6 hours as needed for coughing. Increase fluids at home. Avoid any and all smoke. May use a humidifier in the bedroom. Increase your Vitamin C. Follow-up with personal physician in 2-5 days. Patient treated with dual therapy of Augmentin and azithromycin. Differential Diagnosis Differential diagnosis: Likely upper respiratory infection, viral infection, bronchitis, influenza and other (covid, pneumonia) Lab Data Attestation: I reviewed the patient's lab results. Labs: Lab Results 05/23/24 Range/Units 14:42 POC Influenza A Ag Negative (Negative) POC Influenza B Ag Negative (Negative) POC SARS CoV-2 Ag Negative (Negative) Imaging Data Attestation: I personally reviewed and interpreted this imaging study as follows: Radiologist's impression: [address] [place] [address] XRay Report Signed Patient: Merissa Burciaga : 1945 MR#: [id number] Age: 78 Acct:[id number] Loc: [facility] ADM Date: 05/23/24Attending Dr: Ordering Physician: Maribel Spangler APRN Date of Service: 05/23/24 Procedure(s): XR chest 2V Accession Number(s): [id number] cc: Maribel Spangler APRN; Lawrence Banks MD~ XR chest 2V Ordering provider: Maribel Spangler APRN History: 78 years Female with . cough, chest congestion . Comparison: None. FINDINGS: MEDIASTINUM: The cardiac silhouette is not enlarged. Congestive lucho. LUNGS: No effusions or pneumothorax. Minimal opacification in the right lung base suggestive of early pneumonia. Prominent markings in the left lower lobe. Underlying emphysematous changes. The OTHER: No free air under the diaphragm. Degenerative changes of the spine. IMPRESSION: Prominent markings in both lung bases with minimal infiltrate in the right lower lobe suggestive of early pneumonia. Reviewed, dictated and finalized at location A. Please be advised this is a medical document. It is intended for [id number] communication. It is written in medical language and may contain unfamiliar abbreviations or verbiage. Medical documents are intended to carry relevant information, facts as evident, and the clinical opinion of the practitioner at the time of the encounter. This report may have been done utilizing a voice recognition system. Attempts have been made to correct errors. However, there may be uncorrected grammatical, spelling, and recognition errors present. The file time of this note does not necessarily represent the time of service. Dictated By: Osorio Aleman MD 05/23/24 1443 Signed By: <Electronically signed by Osorio Aleman MD in OV> 05/23/24 1448 Critical Care Time Critical Care Time Critical Care Time: No Discharge Plan Discharge Clinical Impression: Right lower lobe pneumonia Qualifiers: Pneumonia type: due to unspecified organism Qualified Code(s): J18.9 - Pneumonia, unspecified organism Patient Disposition: Home, Self-Care Condition: Stable Instructions: Antibiotic Form, Community Acquired Pneumonia (ED) Additional Instructions: Take antibiotics as directed. May use the inhaler every 4-6 hours as needed for coughing. Increase fluids at home. Avoid any and all smoke. May use a humidifier in the bedroom. Increase your Vitamin C. Follow-up with personal physician in 2-5 days. Patient Language: Turkish Prescriptions: New azithromycin 250 mg tablet See Rx Instructions .ROUTE .COMPLEX Qty: 6 0RF Rx Instructions: For 250 mg dose pack: take 500 mg today (day 1), then 250 mg for 4 days (days 2-5) albuterol sulfate [Ventolin HFA] 90 mcg/actuation HFA aerosol inhaler 1 puff inhalation QID PRN (Reason: shortness of breath or wheezing) Qty: 6.7 0RF amoxicillin-pot clavulanate 875-125 mg tablet 1 tablet PO Q12H 7 Days Qty: 14 0RF No Action multivitamin Tablet 1 tablet PO DAILY Zyrtec 10 mg Capsule 10 mg PO DAILY atorvastatin 20 mg tablet 20 mg PO DAILY Qty: 90 3RF levothyroxine [Synthroid] 88 mcg tablet 88 mcg PO DAILY Qty: 90 3RF alendronate [Fosamax] 70 mg tablet 70 mg PO WEEKLY Qty: 13 1RF sertraline 50 mg tablet 50 mg PO DAILY Qty: 90 1RF clobetasol 0.05 % cream 1 applic topical BID PRN (Reason: itching) Qty: 15 3RF atenolol 25 mg tablet 25 mg PO DAILY Qty: 90 1RF Follow-up/Referrals: Lawrence Banks MD [Primary Care Provider] - Time of Disposition: 14:55
[2024-05-23 14:27] VITALS: BP 119/66; PULSE 55; RESP 16; TEMP 36.4; O2SAT 97
[2024-05-23 14:44] LABS: EDCOVIDSCREEN Negative (Negative); EDINFLUASCREEN Negative (Negative); EDINFLUBSCREEN Negative (Negative)
== END 2024-05-23 15:03 | disposition home or self-care (01) ==
PROVIDERS: Emergency Provider Nurse Practitioner; PCP Family Medicine
DX: J18.9 Pneumonia, unspecified organism (principal); Z20.822 Contact with and (suspected) exposure to COVID-19; I10 Essential (primary) hypertension; K21.9 Gastro-esophageal reflux disease without esophagitis; H40.9 Unspecified glaucoma; E66.9 Obesity, unspecified; Z68.30 Body mass index [BMI] 30.0-30.9, adult
CPT/HCPCS: 71046; 87426; 87804; 99213; G0463

== ENCOUNTER 2024-07-06 17:19 | Emergency (ER) | payer MEDICARE, SELFPAY ==
--- NOTE | ~2024-07-06 | XR_ITS ---
CHEST RADIOGRAPH, PA AND LATERAL CLINICAL HISTORY: cough since yesterday . COMPARISON: 05/23/2024 TECHNIQUE: PA and lateral views of the chest. FINDINGS The cardiomediastinal silhouette is unremarkable. The lungs are clear. Visualized osseous structures and soft tissues are unremarkable. IMPRESSION: No focal infiltrate or effusion. Reviewed, dictated and finalized at location A.
--- NOTE | 2024-07-06 17:26 | ED.URI ---
HPI - URI/Sore Throat General Chief Complaint: Upper Respiratory Infection Stated Complaint: Cough/Back Pain Time Seen by Provider: 07/06/24 17:32 Source: patient, RN notes reviewed and old records reviewed Mode of arrival: ambulatory Limitations: no limitations History of Present Illness HPI Narrative: 79-year-old female presents to the [facility] with complaints of cough and fatigue since yesterday. No treatment prior to arrival. Patient is concerned she might have pneumonia due to recent pneumonia diagnosis. Patient denies any other symptoms. Related Data Home Medications ?Medication ?Instructions ?Recorded ?Confirmed ?Last Taken ?Type multivitamin 1 tablet PO DAILY 07/24/19 07/06/24 Unknown History cetirizine 10 mg capsule (Zyrtec) 10 mg PO DAILY 06/11/21 07/06/24 Unknown History Allergies Allergy/AdvReac Type Severity Reaction Status Date / Time prednisone AdvReac Unknown Flush Verified 07/06/24 17:28 purple rxn Review of Systems Review of Systems: All systems reviewed & are unremarkable except as noted in HPI and below Constitutional: Constitutional: Reports no additional constitutional complaints ENT: Reports system reviewed and no additional complaints, except as documented Cardiovascular: Cardiovascular: Reports no additional cardiovascular complaints, Denies chest pain and Denies dyspnea Respiratory: Respiratory: Reports as per HPI, Denies chest congestion, Reports cough and Denies dyspnea Musculoskeletal: Musculoskeletal: Reports no additional musculoskeletal complaints Integumentary/Breasts: Skin/Breast: Reports system reviewed and no additional complaints, except as docu PMFSH Past Medical History Medical History Glaucoma Obesity Belching Bloating symptom Bronchitis Tietze's disease Stress Essential (primary) hypertension Gastro-esophageal reflux disease without esophagitis Vitamin D deficiency, unspecified Surgical History Surgical History Hx of cataract surgery H/O breast biopsy (~2001) Hx of tubal ligation (~1981) Family History Family History Father Hypertension Mother Hypertension Grandparent Cerebrovascular accident Carcinoma of colon, Onset Age: 58 Social History Social History Smoking status: Never smoker Alcohol intake: current Drinks per week: 1 Substance use: never Substance use type: does not use Lack of Transportation: No Lack of Food: Never True Current Housing: I Have Housing Concerned About Future Housing: No Difficulty Paying Gas/Electric Bills: No Difficulty Paying for Meds: No Currently Unemployed: No Education: High School Diploma/GED Difficulty w/ Childcare or Family Care: No Living arrangements: with family Additional living arrangements comments: Occupation/Education: retired Gender identity (if verbalized by the patient): Female Sexual Orientation (if Verbalized by the Patient): Straight or Heterosexual Spiritual care concerns: No Comments At the time of my signature, I reviewed and agree with the nursing past medical, surgical, social, and family history. There is no relevant family history pertinent to the patient complaint. Exam Const: General: cooperative, healthy appearing, comfortable, no acute distress, well developed, alert and well nourished Nutritional Appearance: well nourished Orientation/consciousness: patient oriented x3 Limitations: no limitations HENMT: Head: normal to inspection Ears: hearing grossly normal bilaterally, external ears normal, TM's normal bilaterally, EAC's normal, mastoids normal and no periauricular adenopathy Mouth: Yes Normal oral and palatal mucosa present, Yes lip normal, Yes tongue normal and Yes moist mucous membranes Throat: posterior oropharynx normal, uvula midline and no uvular edema Eyes: General: appearance normal, both eyes and all related structures Alignment and Position: alignment normal Neck: Neck: normal visual inspection, full ROM, no lymphadenopathy and no meningeal signs Chest: Chest palpation & inspection: normal inspection of the chest Resp: Effort & Inspection: normal respiratory effort and able to speak in complete sentences Auscultation: clear to auscultation bilaterally, no crackles, no rales, no rhonchi and no wheezes Cardio: Rate: regular rate Skin: General skin exam: normal color and no rashes or lesions noted Neuro: General: patient oriented x3, gait normal, moves all extremities and no meningeal signs Cognition (Neuro): normal cognition Speech: normal speech Gait exam (Neuro): Normal gait present Extrem: General: normal to inspection, full ROM, capillary refill normal and normal gait Psych: Appearance: grossly normal and well kempt Mental Status: mental status grossly normal Speech and movement: Normal speech and movement present and Clear speech present Affect: normal affect Attitude: cooperative Course Course Level of Care: Express Care Visit Vital Signs Vital signs: Vital Signs Temperature 97.8 F 07/06/24 17:32 Pulse Rate 97 07/06/24 17:32 Respiratory Rate 16 07/06/24 17:32 Blood Pressure 115/66 07/06/24 17:32 Pulse Oximetry 97 07/06/24 17:32 Temperature 97.8 F 07/06/24 17:32 Pulse Rate 97 07/06/24 17:32 Respiratory Rate 16 07/06/24 17:32 Blood Pressure 115/66 07/06/24 17:32 Pulse Oximetry 97 07/06/24 17:32 Reviewed MDM - URI/Sore Throat MDM Narrative Medical decision making narrative: Patient sitting in exam room. Patient is nontoxic, vitals stable. Patient presents with a cough since yesterday. No treatment prior to arrival. X-rays negative for pneumonia. Discussed [id number] treatment it's with patient. Patient is appropriate for outpatient treatment of viral URI Discharge instructions reviewed with patient, as well as provided in writing per nursing staff. The instructions also include specific and strict return/GO TO THE ER as well as f/u information. All questions have been answered, and the patient deny any further questions with discharge and discharge plan. Some parts of this dictation were generated by voice recognition software and may contain typographical and/or grammatical inaccuracies. Differential Diagnosis Differential diagnosis: Likely upper respiratory infection, sinusitis, viral infection and bronchitis Imaging Data Radiologist's impression: CHEST RADIOGRAPH, PA AND LATERAL CLINICAL HISTORY: cough since yesterday . COMPARISON: 05/23/2024 TECHNIQUE: PA and lateral views of the chest. FINDINGS The cardiomediastinal silhouette is unremarkable. The lungs are clear. Visualized osseous structures and soft tissues are unremarkable. IMPRESSION: No focal infiltrate or effusion. Critical Care Time Critical Care Time Critical Care Time: No Discharge Plan Discharge Clinical Impression: Upper respiratory infection, Cough Patient Disposition: Home Condition: Stable Instructions: Upper Respiratory Infection (ED), Acute Cough (ED) Additional Instructions: Today your chest x-ray did not show signs of pneumonia. It is very important to treat your symptoms. Drink plenty of water, Gatorade, Pedialyte, ice pops or Jell-O. -Alternate Tylenol and Motrin per package directions for fever or pain. You can alternate every 4 hours -Antihistamine medication such as Zyrtec/Claritin/Emma during the day can help improve symptoms. -You can also use Coricidin HBP. Be sure to drink plenty of water with this medication, Water is a natural decongestant -Frequent hand washing or hand communication consultant is one of the best ways to prevent spread of infection. -Using a vaporizer or humidifier at night will also help thin secretions and help with coughing up phlegm. -Follow up with primary care provider in 7-10 days if condition is not improving - For new or worsening symptoms go directly to the nearest ER Patient Language: Sri Lankan Prescriptions: No Action albuterol sulfate [Ventolin HFA] 90 mcg/actuation HFA aerosol inhaler 1 puff inhalation QID PRN (Reason: shortness of breath or wheezing) Qty: 6.7 0RF multivitamin Tablet 1 tablet PO DAILY (DME) spacer for inhaler See Rx Instructions .Route .MEDSUPPLY Qty: 1 0RF Rx Instructions: As directed Zyrtec 10 mg Capsule 10 mg PO DAILY atorvastatin 20 mg tablet 20 mg PO DAILY Qty: 90 3RF levothyroxine [Synthroid] 88 mcg tablet 88 mcg PO DAILY Qty: 90 3RF sertraline 50 mg tablet 50 mg PO DAILY Qty: 90 1RF clobetasol 0.05 % cream 1 applic topical BID PRN (Reason: itching) Qty: 15 3RF atenolol 25 mg tablet 25 mg PO DAILY Qty: 90 1RF alendronate [Fosamax] 70 mg tablet 70 mg PO WEEKLY Qty: 13 1RF Follow-up/Referrals: Lawrence Banks MD [Physician] - 1 Week PHYSICIAN,SET DESIGNER [Primary Care Provider] - Time of Disposition: 18:07
[2024-07-06 17:32] VITALS: BP 115/66; PULSE 97; RESP 16; TEMP 36.6; O2SAT 97
== END 2024-07-06 18:12 | disposition home or self-care (01) ==
PROVIDERS: Emergency Provider Nurse Practitioner
DX: J06.9 Acute upper respiratory infection, unspecified (principal); R05.9 Cough, unspecified; I10 Essential (primary) hypertension; K21.9 Gastro-esophageal reflux disease without esophagitis; H40.9 Unspecified glaucoma; E66.9 Obesity, unspecified; Z68.30 Body mass index [BMI] 30.0-30.9, adult
CPT/HCPCS: 71046; 99213; G0463

== ENCOUNTER 2024-07-08 09:54 | Emergency (ER) | payer MEDICARE, SELFPAY ==
--- NOTE | ~2024-07-08 | XR_ITS ---
EXAMINATION: XR chest 2V DATE: 07/08/2024 10:35 INDICATION: Coarse cough TECHNIQUE: PA and lateral views of the chest were obtained. COMPARISON: Chest radiograph dated 07/06/2024 FINDINGS: Mild biapical pleural-parenchymal scarring. Mild perihilar bronchial wall thickening. No focal airspa ce opacities, pulmonary edema, pleural effusion or pneumothorax. The cardiomediastinal silhouette is normal. Mild thoracic spondylosis. IMPRESSION: 1. Perihilar mild bronchial wall thickening without focal airspace consolidation which could be due t o bronchitis or reactive airway disease/asthma. Reviewed, dictated and finalized at location A. IMPRESSION: 1. Perihilar mild bronchial wall thickening without focal airspace consolidatio n which could be due to bronchitis or reactive airway disease/asthma.
[2024-07-08 10:08] VITALS: BP 101/74; PULSE 68; RESP 16; TEMP 36.3; O2SAT 97
--- NOTE | 2024-07-08 10:21 | ED_ITS ---
HPI - URI/Sore Throat General Chief Complaint: Upper Respiratory Infection Stated Complaint: Cough Time Seen by Provider: 07/08/24 10:21 Source: patient Mode of arrival: ambulatory Limitations: no limitations History of Present Illness HPI Narrative: 79-year-old female presents with complaint of cough, nasal congestion, fatigue, wheezing for 3 days. Afebrile. Patient states coughing fit last night, felt short of breath. Has been using inhaler that was prescribed for her when she had bronchitis. Took course seen in this morning. Patient concerned for COVID. All systems reviewed and negative except as noted above. Related Data Home Medications ?Medication ?Instructions ?Recorded ?Confirmed ?Last Taken ?Type multivitamin 1 tablet PO DAILY 07/24/19 07/06/24 Unknown History cetirizine 10 mg capsule (Zyrtec) 10 mg PO DAILY 06/11/21 07/06/24 Unknown History Allergies Allergy/AdvReac Type Severity Reaction Status Date / Time prednisone AdvReac Unknown Flush Verified 07/06/24 17:28 purple rxn Review of Systems Review of Systems: CONSTITUTIONAL: Denies fever, chills, or sweats. Reports fatigue. EYES: Denies visual changes, redness, or discharge. ENT: Reports rhinorrhea, congestion. Denies sore throat, or otalgia. CARDIOVASCULAR: Denies chest pain, palpitations, or edema. RESPIRATORY: Reports cough and dyspnea with exertion. GASTROINTESTINAL: Denies abdominal pain, nausea, vomiting, or diarrhea. GENITOURINARY: Denies dysuria or hematuria. SKIN: Denies rash or itching. MUSCULOSKELETAL: Denies back pain, joint pain, or myalgia. NEUROLOGIC: Denies headache, numbness, or weakness. PSYCHIATRIC: Denies anxiety or depression. All other systems reviewed are negative, except as documented in HPI. [facility] Past Medical History Medical History Glaucoma Obesity Belching Bloating symptom Bronchitis Tietze's disease Stress Essential (primary) hypertension Gastro-esophageal reflux disease without esophagitis Vitamin D deficiency, unspecified Surgical History Surgical History Hx of cataract surgery H/O breast biopsy (~2001) Hx of tubal ligation (~1981) Family History Family History Father Hypertension Mother Hypertension Grandparent Cerebrovascular accident Carcinoma of colon, Onset Age: 58 Social History Social History Smoking status: Never smoker Alcohol intake: current Drinks per week: 1 Substance use: never Substance use type: does not use Lack of Transportation: No Lack of Food: Never True Current Housing: I Have Housing Concerned About Future Housing: No Difficulty Paying Gas/Electric Bills: No Difficulty Paying for Meds: No Currently Unemployed: No Education: High School Diploma/GED Difficulty w/ Childcare or Family Care: No Living arrangements: with family Additional living arrangements comments: Occupation/Education: retired Gender identity (if verbalized by the patient): Female Sexual Orientation (if Verbalized by the Patient): Straight or Heterosexual Spiritual care concerns: No Comments At time of signature, agree with nursing past medical, surgical, social and family history. There is no relevant family history pertinent to the presenting complaint. Exam Narrative: GENERAL: This is a well-nourished, well-developed patient, ill-appearing but in no acute distress HEAD: normocephalic, atraumatic. EYES: PERRL. Sclera clear/white. Vision is grossly intact. EARS: External ears normal, auditory canals clear and without drainage, TMs normal without perforation. Hearing grossly intact. NOSE: External nose normal with clear nasal drainage THROAT: Mucous membranes moist, posterior pharynx clear. NECK: Neck supple, non-tender without lymphadenopathy, masses or thyromegaly. CARDIOVASCULAR: Regular rate and rhythm without murmurs, gallops, or rubs. RESPIRATORY: Mild coarseness and rhonchi on expiration throughout all lung peres. Breath sounds equal bilaterally. No wheezes, rales, or rhonchi. SKIN: warm, Dry, intact with no suspicious lesions or rash, good texture and turgor. NEURO: awake, alert, and oriented to person, place and time. There were no obvious focal neurologic abnormalities. EXTREMITIES: No joint tenderness, effusion, or edema noted. Course Course Level of Care: Express Care Visit Vital Signs Vital signs: Vital Signs Temperature 36.3 C L 07/08/24 10:08 Pulse Rate 68 07/08/24 10:08 Respiratory Rate 16 07/08/24 10:08 Blood Pressure 101/74 07/08/24 10:08 Pulse Oximetry 97 07/08/24 10:08 Oxygen Delivery Room Air 07/08/24 10:08 Temperature 36.3 C L 07/08/24 10:08 Pulse Rate 68 07/08/24 10:08 Respiratory Rate 16 07/08/24 10:08 Blood Pressure 101/74 07/08/24 10:08 Pulse Oximetry 97 07/08/24 10:08 Oxygen Delivery Room Air 07/08/24 10:08 Reviewed MDM - URI/Sore Throat MDM Narrative Medical decision making narrative: COVID and influenza test negative. Chest x-ray negative for pneumonia. Will treat with antibiotic due to patient's comorbidities and age. Please be advised this is a medical document. It is intended for thkb-ho-xujo communication. It is written in medical language and may contain unfamiliar abbreviations or verbiage. Medical documents are intended to carry relevant information, facts as evident, and the clinical opinion of the practitioner at the time of the encounter. This report may have been done utilizing a voice recognition system. Attempts have been made to correct errors. However, there may be uncorrected grammatical, spelling, and recognition errors present. The file time of this note does not necessarily represent the time of service. Differential Diagnosis Differential diagnosis: Likely upper respiratory infection, sinusitis, bronchitis and influenza Discharge Plan Discharge Clinical Impression: Acute bronchitis Qualifiers: Bronchitis organism: unspecified organism Qualified Code(s): J20.9 - Acute bronchitis, unspecified Patient Disposition: Home Condition: Stable Instructions: Acute Bronchitis (ED) Additional Instructions: Your COVID and influenza test was negative today. Your x-ray was negative for pneumonia. Take medications as prescribed. Continue using inhaler as prescribed. Drink plenty of water and rest. Follow-up with your primary care physician if symptoms are not improving. Patient Language: Indonesian Prescriptions: New doxycycline hyclate 100 mg capsule 100 mg PO BID 7 Days Qty: 14 0RF benzonatate 200 mg capsule 200 mg PO TID PRN (Reason: cough) Qty: 20 0RF methylprednisolone [Medrol (Moe)] 4 mg tablets,dose pack See Rx Instructions PO .COMPLEX Qty: 21 0RF Rx Instructions: orally per package directions No Action albuterol sulfate [Ventolin HFA] 90 mcg/actuation HFA aerosol inhaler 1 puff inhalation QID PRN (Reason: shortness of breath or wheezing) Qty: 6.7 0RF multivitamin Tablet 1 tablet PO DAILY (DME) spacer for inhaler See Rx Instructions .Route .MEDSUPPLY Qty: 1 0RF Rx Instructions: As directed Zyrtec 10 mg Capsule 10 mg PO DAILY atorvastatin 20 mg tablet 20 mg PO DAILY Qty: 90 3RF levothyroxine [Synthroid] 88 mcg tablet 88 mcg PO DAILY Qty: 90 3RF sertraline 50 mg tablet 50 mg PO DAILY Qty: 90 1RF clobetasol 0.05 % cream 1 applic topical BID PRN (Reason: itching) Qty: 15 3RF atenolol 25 mg tablet 25 mg PO DAILY Qty: 90 1RF alendronate [Fosamax] 70 mg tablet 70 mg PO WEEKLY Qty: 13 1RF Follow-up/Referrals: PHYSICIAN,MANAGER VOICE [Primary Care Provider] - Time of Disposition: 10:55
[2024-07-08 11:06] LABS: EDCOVIDSCREEN Negative (Negative); EDINFLUASCREEN Negative (Negative); EDINFLUBSCREEN Negative (Negative)
== END 2024-07-08 10:59 | disposition home or self-care (01) ==
PROVIDERS: Emergency Provider Nurse Practitioner Family
DX: J20.9 Acute bronchitis, unspecified (principal); Z20.822 Contact with and (suspected) exposure to COVID-19; I10 Essential (primary) hypertension; K21.9 Gastro-esophageal reflux disease without esophagitis; H40.9 Unspecified glaucoma; E66.9 Obesity, unspecified
CPT/HCPCS: 71046; 87426; 87804; 99213; G0463

== ENCOUNTER 2024-08-17 08:51 | Outpatient (CLI) | payer MEDICARE, SELFPAY ==
--- OUTSIDE RECORDS SUMMARY | 2024-08-17 09:14 | XMS_ITS | Encounter Summary ---
Author Organization [employer] Address 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
--- OUTSIDE RECORDS SUMMARY | 2024-08-17 09:14 | XMS_ITS | Referral Summary ---
Author Organization [facility] Medical [facility] 2 Address [address] [facility] [place] [address] Care Team Providers Care Coating Engineer Name Role Phone Lawrence Banks MD Primary Care Provider [phone] Encounters Date Type Department Care Team Description 08/02/2024 Telephone [facility] Medical Group Cardiology [address] [place] [address] Leigh Ann Chavez MD from Last 3 Months Allergies Active Allergy Reactions Criticality Noted Date [...] 1 tablet (88 mcg total) by mouth planning and analysis manager before breakfast Active sertraline (ZOLOFT) 50 mg tablet Take 1 tablet (50 mg total) by mouth daily Active Active Problems Problem Noted Date Diagnosed [...] on file Legal 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 Based on machine cross-calibration and precision studies [...] deviation discrepant relative to one adjacent vertebra. Clinical correlation is recommended. ADDITIONAL COMMENTS: Postmenopausal Women [...] by the International Society of Clinical Densitometry. [id number] Joaquin Zuniga MD IMG DXA PROCEDURES Final Result from Last 3 Months or Most Recently Relevant to Health Maintenance Insurance MEDICARE [facility] MEDICARE [facility] Care Teams Coating Engineer Relationship Specialty Start Date End Date Lawrence Banks MD [address] [place] [address] [address] PCP - General Family Medicine 07/05/23
--- OUTSIDE RECORDS SUMMARY | 2024-08-17 09:14 | XMS_ITS | Encounter Summary ---
Author Organization [facility] Address [address] [place] [address] Care Team Providers Care Gis Engineer Name Role Phone Andrzej Farrell MD Primary Care Provider [phone] Encounter Details Date Type Department Care Team (Latest Contact Info) Description 09/06/2008 Outpatient Historical [facility] Ricky Olmos MD [address] [facility] [address] [place] [address] Special Screening for Osteoporosis Social History Tobacco Use Types Packs/Day Years Used Date Smoking Tobacco: Never Assessed Comments Unknown Sex and Gender Information Value Date Recorded Sex Assigned at Not on file 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 [place], [place] [address] Admit Date: 09/06/2008 MERISSA ROSALES Sex: F Admit Prov: RICKY OLMOS Date: 1945 Primary Care Prov: ANDRZEJ FARRELL CMRN: [id number] Room: [facility]: [id number] IMAGING SERVICES Ordering Prov: N/A Accession Number: [id number] Interpretation Examination: Bone Density Study (DEXA) Clinical History: 63 year-old postmenopausal female. Monitor for osteoporosis. Findings: Lateral radiograph of the lumbar spine: No evidence of fracture. Lumbar Spine (L 1-4 ) spine bone mineral density is 1.00 g/sq cm which corresponds to a T-score of -1.5. Femoral neck densities: Left femoral neck bone mineral density is 0.74 g/sq cm which corresponds to a T-score of -2.0. Right femoral neck bone mineral density is 0.76 g/sq cm which corresponds to a T-score of -1.8. Impressions: Lumbar spine: This patient's bone mineral density of the spine is osteopenic which is normal for age when compared to the normal range of young adults and present fracture risk is considered to be low. Hips: This patient's bone mineral density of the hip is osteopenic when compared to the normal range of young adults and present fracture risk is considered to be low. Comments: None. Detailed report to follow. . Dictated by: MARICRUZ JONES 09/06/2008 10:32 Electronically signed by: MARICRUZ JONES 09/06/2008 10:33 Procedure Note Maricruz Jones MD - 09/06/[address] [address] Admit Date: 09/06/2008 MERISSA ROSALES Sex: F Admit Prov: RICKY OLMOS Date: 1945 Primary Care Prov: [facility]LL [id number] [id number] [facility] Ordering Prov: N/A Interpretation Examination: [...] Electronically signed by: MARICRUZ JONES 09/06/2008 10:33 Ricky Olmos MD DIAGNOSTIC IMAGING ORDERABLES Fi nal Result documented in this encounter Visit Diagnoses Diagnosis Special screening for osteoporosis documented in this encounter Care Teams Gis Engineer Relationship Specialty Start Date End Date Andrzej Farrell MD [address] [place] [address] PCP - General 08/31/02 documented as of this encounter
--- OUTSIDE RECORDS SUMMARY | 2024-08-17 09:14 | XMS_ITS | Clinical Summary ---
Author Organization [facility] Address [address] [place] [address] [place] [address] Phone Care Team Providers Care Roller Shop Utility Worker Name Role Phone Andrzej Farrell MD Primary Care Provider [phone] Allergies Active Allergy Reactions Criticality Noted Date [...] on file Legal Sex Female 4:53 AM SWORD SWALLOWER Gender Identity Not on file Sexual Orientation Not on file Last Filed Vital Signs Vital Sign Reading Time Taken Comments Blood Pressure 128/79 05/02/2015 12:17 PM SWORD SWALLOWER rt wrist Pulse 60 05/02/2015 12:17 PM SWORD SWALLOWER Temperature - - Respiratory Rate - - Oxygen Saturation - - Inhaled Oxygen Concentration - - Weight 74.8 kg (165 lb) 05/02/2015 12:17 PM SWORD SWALLOWER Height 167.6 cm (5' 6) 05/02/2015 12:17 PM SWORD SWALLOWER Body Mass Index 26.63 05/02/2015 12:17 PM SWORD SWALLOWER Plan of Treatment Health Maintenance Due Date Last Done Comments DTAP/TDAP/TD VACCINES (1 - Tdap) 06/17/1962 PNEUMOCOCCAL VACCINE 50+ YEA RS (1 of 1 - PCV) 06/17/1993 ZOSTER VACCINE (1 of 2) 06/17/1993 RSV VACCINE (60+ or ) (1 - 1-dose 75+ series) 06/17/2018 OSTEOPOROSIS SCREENING 11/16/2019 5, 10/25/2012, 09/29/2010, Additional history exists INFLUENZA VACCINE (#1) 2023 Procedures Procedure Name Priority Date/Time Associated Diagnosis [...] OR MORE SITES Dictated from Location 1 ([facility]) HISTORY 69 year-old F with post menopausal symptoms. PROCEDURE: Planar images of the lumbar spine and hip(s) using a [employer] DEXA scanner for bone mineral density determination (BMD). Compared to the prior bone density performed 10/25/2012 FINDINGS: Lumbar Spine (L1-L4) 1.003 gm/cm2, T-score: -1.5 Prior: 1.002 gm/cm2, +0.1% change Left femoral neck 0.760 gm/cm2, T-score: -2.0 Prior: 0.771 gm/cm2, -1.4% change Right femoral neck 0.796 gm/cm2, T-score: -1.7 Prior: 0.802 gm/cm2, -0.7% change Comments: None. Detailed report placed in Imaging Section of Psychiatric EMR. IMPRESSION Osteopenic BMD. Lumbar Spine T-score: [...] OR MORE SITES Dictated from Location 1 ([facility]) HISTORY 69 year-old F with post menopausal symptoms. PROCEDURE: Planar images of the lumbar spine and hip(s) using a [employer] DEXA scanner for bone mineral density determination (BMD). Compared to the prior bone density performed 10/25/2012 FINDINGS: Lumbar Spine (L1-L4) 1.003 gm/cm2, T-score: -1.5 Prior: 1.002 gm/cm2, +0.1% change Left femoral neck 0.760 gm/cm2, T-score: -2.0 Prior: 0.771 gm/cm2, -1.4% change Right femoral neck 0.796 gm/cm2, T-score: -1.7 Prior: 0.802 gm/cm2, -0.7% change Comments: None. Detailed report placed in Imaging Section of Psychiatric EMR. IMPRESSION Osteopenic BMD. Lumbar Spine T-score: [...] years thereafter Dictated by Dr. Otoniel Hart, Ricky Tapia MD DIAGNOSTIC IMAGING ORDERABLES Fi nal Result from Last 3 Months or Most Recently Relevant to Health Maintenance Insurance MEDICARE PART A AND B Care Teams Roller Shop Utility Worker Relationship Specialty Start Date End Date Andrzej Farrell MD [address] [place] [address] PCP - General 08/31/02
--- OUTSIDE RECORDS SUMMARY | 2024-08-17 09:14 | XMS_ITS | Continuity of Care Document ---
Author Organization [facility] Address [address] [place] [address] Phone Care Team Providers Care Building Pressure Washer Name Role Phone Root OD, Shady Unavailable Unavailable Procedures Procedure Date Eye Exam & Treatment Refraction Progressive Lens, Polycarb Tint Plastic, Non-Jsoey Progressive Lens, Polycarb Frames Deluxe Anti-reflective Coating [...] Diagnoses Date Provider Providers Copied on Encounter [facility], [address], [place], [place], [id number], [place] tel:[phone] SEC [facility] No Information 9-201 0 Root OD Shady. [address] , [address], [place], [address], [place]. tel:[phone] [facility], [address], [place], [place], [id number], [place] tel:[phone] [facility] No Information 2-201 0 [facility] . [address], [address], [place], [place], [address], . tel:[phone] Consulting Provider: Stephanie Ramírez, [address] [place] [address], [facility]. tel:[phone] [facility] Eye [facility], [address], [place], [place], [address], [place] tel:[phone] [facility] No Information 1 5-200 9 [facility] . [address], [address], [place], [place], [address], . tel:[phone] Referring Provider: Shady Root OD A, [address], [place], [place], [facility]. tel:[phone] lting Provider: Stephanie Ramírez, [address] [place] [address], [facility]. tel:[phone] [facility], [address], [place], [place], [address], [place] tel:[phone] SEC [facility] No Information 1200 [address] Doisy Edward. [address] , [address], [place], [address], [place]. tel:[phone] [facility], [address], [place], [place], [address], [place] tel:[phone] [facility] No Information 3 1-200 9 Root OD Shady. [address] , [address], [place], [address], [place]. tel:[phone] [facility], [address], [place], [place], [address], [place] tel:[phone] [facility] No Information Sep-2 6-200 8 Root OD Shady. [address], [place], [address], [place]. tel:[phone] [facility], [address], [place], [place], [address], [place] tel:[phone] [facility] No Information Mar-3 0-200 7 [facility] . [address], [address], [place], [address], [place]. tel:[phone] Consulting Provider: Stephanie Ramírez, [address] [place] [address], [address]. tel:[phone] [facility] Eye [facility], [address] [facility] [address], [place], [place], [address], [place] tel:[phone] [facility] No Information Mar-3 0-200 7 [facility] . [address], [address], [place], [address], [place]. tel:[phone] Referring Provider: Farzad Dallas, [address] [place] [address], [address]. tel:[phone] lting Provider: Stephanie Ramírez, [address] [place] [address], [address]. tel:[phone] Family History Family Member Type Diagnosis Age At Onset No Information Payers Payer name Insurance type Covered green party ID Authoriza timati(s) Medicare [facility] [id number] [facility] CI [id number] Social History Type Description Quantity Date Captured [...]
--- OUTSIDE RECORDS SUMMARY | 2024-08-17 09:14 | XMS_ITS | Clinical Summary ---
Author Organization [facility] 2 Address [address] [place] [address] Care Team Providers Care Oracle Reports Developer Name Role Phone Lawrence Banks MD Primary Care Provider [phone] Allergies Active Allergy Reactions Criticality Noted Date [...] 1 tablet (88 mcg total) by mouth principal bioinformatics specialist before breakfast Active sertraline (ZOLOFT) 50 mg tablet Take 1 tablet (50 mg total) by mouth daily 4 Active Active Problems Problem Noted Date Diagnosed Date Mixed hyperlipidemia 08/16/2023 Fatigue due to excessive exertion 07/05/2023 Essential hypertension 07/05/2023 Age-related osteoporosis wit hout current pathological fracture 10/13/2021 Disorder of bone 08/24/2016 Osteopenia 07/08/2015 Encounters Date Type Department Care Team Description 08/02/2024 Telephone [facility] Medical Group Cardiology [address] [place] [address] Leigh Ann Chavez MD from Last 3 Months Medical History Medical History Date Comments Syncope [...] on file 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 Based on machine cross-calibration and [...] by the International Society of Clinical Densitometry. [id number] Joaquin Zuniga MD IMG DXA PROCEDURES Final Result from Last 3 Months or Most Recently Relevant to Health Maintenance Insurance MEDICARE [facility] MEDICARE [facility] Care Teams Oracle Reports Developer Relationship Specialty Start Date End Date Lawrence Banks MD [address] [place] [address] [address] PCP - General Family Medicine 07/05/23
--- OUTSIDE RECORDS SUMMARY | 2024-08-17 09:14 | XMS_ITS | Encounter Summary ---
Author Organization [employer] Address [address] [place] [address] Care Team Providers Care Oxygen Therapy Teacher Name Role Phone Andrzej Farrell MD Primary Care Provider [phone] Encounter Details Date Type Department Care Team (Late st Contact Info) Description 09/13/2002 Outpatient Historical [facility] Support Serv. (Adt Cardiology-SJ) [address] 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
--- OUTSIDE RECORDS SUMMARY | 2024-08-17 09:14 | XMS_ITS | Encounter Summary ---
Author Organization [employer] Address 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
--- OUTSIDE RECORDS SUMMARY | 2024-08-17 09:14 | XMS_ITS | Encounter Summary ---
Author Organization [facility] Address [address] [place] [address] Care Team Providers Care Soa Integration Architect Name Role Phone Andrzej Farrell MD Primary Care Provider [phone] Encounter Details Date Type Department Care Team (Late st Contact Info) Description 10/06/2016 Lab Requisition [facility] Laboratory Services [address] [employer] [address] [place] [address] [facility], External Provider [address] [place] [address] Social History Tobacco Use Types Packs/Day Years Used Date Smoking Tobacco: Never Alcohol Use Standard Drinks/Week Comments Not Asked 0 (1 standard drink = 0.6 oz pur e alcohol) Comments Unknown Sex and Gender Information Value Date Recorded Sex Assigned at Not on file 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 Values above the upper limit of the reference range are common from the 31st to 40th week of . High negative predictive values for DVT have been [...] CDT 10/06/2016 1:02 PM CDT External Provider [facility] HEMATOLOGY ORDERABLES Fi nal Result [facility] LABORATORY [facility]# [id number] [address] [place] [address] documented in this encounter Visit Diagnoses Not on filedocumented in this encounter Care Teams Soa Integration Architect Relationship Specialty Start Date End Date Andrzej Farrell MD [address] [place] [address] PCP - General 08/31/02 documented as of this encounter
--- OUTSIDE RECORDS SUMMARY | 2024-08-17 09:14 | XMS_ITS | Encounter Summary ---
Author Organization [employer] Address 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
--- OUTSIDE RECORDS SUMMARY | 2024-08-17 09:14 | XMS_ITS | Patient Health Record ---
Author Organization [employer] Address [address] Antonio. [address] [place] [address] Support Name Relationship Address Phone Merissa Burciaga Guarantor Unknown [phone] Reason For Referral No Information Plan Of Treatment No Information Insurance Providers Payer Name Payer Address Payer Phone Subscriber Number Group Number Insured Name Patient Relationship to Insured Coverage Start Date Coverage End Date Medicare E2 [address] [address] [place] [address] [id number] Merissa Burciaga Self - patient is the insured [address] [facility] E2 [address] [place] [address] [id number] Merissa Burciaga Self - patient is the insured
[2024-08-17 21:13] LABS: Alanine Aminotransferase 21 U/L (6-35); Albumin Level 4.1 g/dL (3.5-5.1); Alkaline Phosphatase 99 U/L (38-126); Anion Gap 9 mmol/L (4-12); Aspartate Amino Transferase 39 U/L (14-36); Bilirubin,Total 0.6 mg/dL (0.2-1.3); Blood Urea Nitrogen 18 mg/dL (7-17); Calcium 9.5 mg/dL (8.4-10.2); Carbon Dioxide 21 mmol/L (22-30); Chloride 108 mmol/L (98-107); Estimated Glomerular Filt Rate 56; Glucose 102 mg/dL (65-110); Potassium 4.3 mmol/L (3.4-5.0); Sodium 138 mmol/L (137-145); Total Protein 7.4 g/dL (6.3-8.2)
== END 2024-08-17 08:52 | disposition home or self-care (01) ==
LOC: ANHGOSHLAB 08:52
PROVIDERS: PCP Family Medicine; Visit Provider Nurse Practitioner Family
DX: E78.2 Mixed hyperlipidemia (principal); I10 Essential (primary) hypertension; E03.9 Hypothyroidism, unspecified; Z79.899 Other long term (current) drug therapy
CPT/HCPCS: 36415; 80053; 84443

== ENCOUNTER 2024-08-23 20:50 | Emergency (ER) | payer MEDICARE, SELFPAY ==
--- NOTE | ~2024-08-23 | XR_ITS ---
HISTORY: right hip pain COMPARISON: None TECHNIQUE: 2 views of the bilateral hips along with an AP view of the pelvis FINDINGS: No acute fracture or dislocation is identified. Superior lateral sclerosis of the bilateral femoral acetabular joint spaces are present consistent wi th moderate osteoarthritis. Joint space narrowing detected within the bilateral SI joints with sclerosis. Degenerative disease within the visualized portion of the lower lumbar spine. Age-appropriate mineralization. Well-corticated extraosseous densities identified adjacent to the gre ater trochanter of the right femur for which calcific tendinosis is suspected. IMPRESSION: Degenerative disease, without acute fracture or dislocation. Findings suggesting calcific tendinosis, as detailed above. Reviewed, dictated and finalized at location A.
--- OUTSIDE RECORDS SUMMARY | 2024-08-23 20:52 | XMS_ITS | Encounter Summary ---
Author Organization [facility] Address [address] [place] [address] Care Team Providers Care Digital Strategist Name Role Phone Andrzej Farrell MD Primary Care Provider [phone] Encounter Details Date Type Department Care Team (Latest Contact Info) Description 09/06/2008 Outpatient Historical [facility] Ricky Olmos MD [address] [facility] [address] [place] [address] Special Screening for Osteoporosis Social History Tobacco Use Types Packs/Day Years Used Date Smoking Tobacco: Never Assessed Comments Unknown Sex and Gender Information Value Date Recorded Sex Assigned at Not on file 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 [place], [place] [address] Admit Date: 09/06/2008 MERISSA ROSALES Sex: F Admit Prov: RICKY OLMOS Date: 1945 Primary Care Prov: ANDRZEJ FARRELL CMRN: [id number] Room: [facility]: [id number] IMAGING SERVICES Ordering Prov: N/A Accession Number: [id number] Interpretation Examination: Bone Density Study (DEXA) Clinical [...] Procedure Note Maricruz Jones MD - 09/06/[address] [address] Admit Date: 09/06/2008 MERISSA ROSALES Sex: F Admit Prov: RICKY OLMOS Date: 1945 Primary Care Prov: ANDRZEJ FARRELL [id number] [id number] [facility] Ordering Prov: N/A Interpretation Examination: [...] osteoporosis documented in this encounter Care Teams Digital Strategist Relationship Specialty Start Date End Date Andrzej Farrell MD [address] [place] [address] PCP - General 08/31/02 documented as of this encounter
--- OUTSIDE RECORDS SUMMARY | 2024-08-23 20:52 | XMS_ITS | Encounter Summary ---
Author Organization [employer] Address [address] [place] [address] Care Team Providers Care Precision Crop Manager Name Role Phone Andrzej Farrell MD Primary Care Provider Encounter Details Date Type Department Care Team (Late st Contact Info) Description 09/13/2002 Outpatient Historical [facility] Support Serv. (Adt Cardiology-SJ) [address] 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
--- OUTSIDE RECORDS SUMMARY | 2024-08-23 20:52 | XMS_ITS | Encounter Summary ---
Author Organization [employer] Address 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
--- OUTSIDE RECORDS SUMMARY | 2024-08-23 20:52 | XMS_ITS | Encounter Summary ---
Author Organization [facility] Address [address] [place] [address] Care Team Providers Care Dye Can Operator Name Role Phone Andrzej Farrell MD Primary Care Provider [phone] Encounter Details Date Type Department Care Team (Late st Contact Info) Description 10/06/2016 Lab Requisition [facility] Laboratory Services [address] [employer] [address] [place] [address] [facility], External Provider [address] [place] [address] Social History Tobacco Use Types Packs/Day Years Used Date Smoking Tobacco: Never Alcohol Use Standard Drinks/Week Comments Not Asked 0 (1 standard drink = 0.6 oz pur e alcohol) Comments Unknown Sex and Gender Information Value Date Recorded Sex Assigned at Not on file 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 Gender Identity Not on file Sexual Orientation Not on file documented as of this encounter Plan of Treatment Not on file documented as of this encounter Procedures Procedure Name Priority Date/Time Associated Diagnosis Comments D-DIMER Stat 10/06/2016 1:01 PM CDT documented in this encounter Results * D-DIMER (10/06/2016 1:01 PM CDT) D-DIMER QUANT <0.27 <0.42 ug/mL FEU 10/06/2016 1:05 PM CDT [facility] Comment: The DIC reference range is not [...] CDT 10/06/2016 1:02 PM CDT External Provider [facility] HEMATOLOGY ORDERABLES Fi nal Result [facility] [place]# [id number] [address] [place] [address] documented in this encounter Visit Diagnoses Not on filedocumented in this encounter Care Teams Dye Can Operator Relationship Specialty Start Date End Date Andrzej Farrell MD [address] [place] [address] PCP - General 08/31/02 documented as of this encounter
--- OUTSIDE RECORDS SUMMARY | 2024-08-23 20:52 | XMS_ITS | Referral Summary ---
Author Organization [facility] Medical [facility] 2 Address [address] [place] [address] Care Team Providers Care Sampling Expert Name Role Phone Lawrence Banks MD Primary Care Provider [phone] Encounters Date Type Department Care Team Description 08/02/2024 Telephone [facility] Medical Group Cardiology [address] [place] [address] Leigh Ann Chavez MD from [...] 1 tablet (88 mcg total) by mouth sheet metal welder before breakfast Active sertraline (ZOLOFT) 50 mg [...] on file Legal Sex Female 2:32 AM FOREST ECOLOGIST Gender Identity Female 06/28/2023 12:09 PM CDT [...] Bone mineral density was performed on a [employer] Discovery Densitometer. Based on machine cross-calibration and [...] by the International Society of Clinical Densitometry. [id number] Joaquin Zuniga MD IMG DXA PROCEDURES Final Result from Last 3 Months or Most Recently Relevant to Health Maintenance Insurance MEDICARE [facility] MEDICARE [facility] Care Teams Sampling Expert Relationship Specialty Start Date End Date Lawrence Banks MD [address] [place] [address] [address] PCP - General Family Medicine 07/05/23
--- OUTSIDE RECORDS SUMMARY | 2024-08-23 20:52 | XMS_ITS | Clinical Summary ---
Author Organization [facility] Address [address] [place] [address] [place] [address] Phone Care Team Providers Care Naturopathic Oncology Provider Name Role Phone Andrzej Farrell MD Primary Care Provider [phone] Allergies Active Allergy Reactions Criticality Noted Date [...] on file Legal Sex Female 4:53 AM HISTOLOGIST Gender Identity Not on file Sexual Orientation Not on file Last Filed Vital Signs Vital Sign Reading Time Taken Comments Blood Pressure 128/79 05/02/2015 12:17 PM HISTOLOGIST rt wrist Pulse 60 05/02/2015 12:17 PM HISTOLOGIST Temperature - - Respiratory Rate - - Oxygen Saturation - - Inhaled Oxygen Concentration - - Weight 74.8 kg (165 lb) 05/02/2015 12:17 PM HISTOLOGIST Height 167.6 cm (5' 6) 05/02/2015 12:17 PM HISTOLOGIST Body Mass Index 26.63 05/02/2015 12:17 PM HISTOLOGIST Plan of Treatment Health Maintenance Due Date [...] OR MORE SITES Dictated from Location 1 ([facility]) HISTORY 69 year-old F with post menopausal symptoms. PROCEDURE: Planar images of the lumbar spine and hip(s) using a AnSyn DEXA scanner for bone mineral density determination (BMD). Compared to the prior bone density performed 10/25/2012 FINDINGS: Lumbar Spine (L1-L4) 1.003 gm/cm2, T-score: -1.5 Prior: 1.002 gm/cm2, +0.1% change Left femoral neck 0.760 gm/cm2, T-score: -2.0 Prior: 0.771 gm/cm2, -1.4% change Right femoral neck 0.796 gm/cm2, T-score: -1.7 Prior: 0.802 gm/cm2, -0.7% change Comments: None. Detailed report placed in Imaging Section of [facility] EMR. IMPRESSION Osteopenic BMD. Lumbar Spine T-score: [...] OR MORE SITES Dictated from Location 1 ([facility]) HISTORY 69 year-old F with post menopausal symptoms. PROCEDURE: Planar images of the lumbar spine and hip(s) using a LUNCombiMatrix DEXA scanner for bone mineral density determination (BMD). Compared to the prior bone density performed 10/25/2012 FINDINGS: Lumbar Spine (L1-L4) 1.003 gm/cm2, T-score: -1.5 Prior: 1.002 gm/cm2, +0.1% change Left femoral neck 0.760 gm/cm2, T-score: -2.0 Prior: 0.771 gm/cm2, -1.4% change Right femoral neck 0.796 gm/cm2, T-score: -1.7 Prior: 0.802 gm/cm2, -0.7% change Comments: None. Detailed report placed in Imaging Section of [facility] EMR. IMPRESSION Osteopenic BMD. Lumbar Spine T-score: [...] MEDICARE PART A AND B Care Teams Naturopathic Oncology Provider Relationship Specialty Start Date End Date Andrzej Farrell MD [address] [place] [address] PCP - General 08/31/02
--- OUTSIDE RECORDS SUMMARY | 2024-08-23 20:52 | XMS_ITS | Encounter Summary ---
Author Organization [employer] Address 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
--- OUTSIDE RECORDS SUMMARY | 2024-08-23 20:52 | XMS_ITS | Continuity of Care Document ---
Author Organization [facility] Address [address] [place] [address] Phone Care Team Providers Care Qm Nurse Name Role Phone Root OD, Shady Unavailable [...] Diagnoses Date Provider Providers Copied on Encounter [facility], [address], [place], [place], [id number], [place] tel:[phone] [facility] No Information 9-201 0 Root OD Shady. [address] , [address], [place], [address], [place]. tel:[phone] [facility], [address], [place], [place], [id number], [place] tel:[phone] [facility] No Information 2-201 0 [facility] . [address], [address], [place], [place], [id number], . tel:[phone] Consulting Provider: Stephanie Ramírez, [address] [place] [address], [facility]. tel:[phone] [facility], [address], [place], [place], [address], [place] tel:[phone] [facility] No Information 1 5-200 9 [facility] . [address], [address], [place], [place], [address], . tel:[phone] Referring Provider: Shady Root OD A, [address], [place], [place], [facility]. tel:[phone] lting Provider: Stephanie Ramírez, [address] [place] [address], [facility]. tel:[phone] [facility], [address], [place], [place], [address], [place] tel:[phone] [facility] No Information 1200 9 Doisy Edward. [address] , [address], [place], [address], [place]. tel:[phone] [facility], [address], [place], [place], [address], [place] tel:[phone] [facility] No Information 3 1-200 9 Root OD Shady. [address] , [address], [place], [address], [place]. tel:[phone] [facility], [address], [place], [place], [address], [place] tel:[phone] [facility] No Information Sep-2 6-200 8 Root OD Shady. [address], [place], [address], [place]. tel:[phone] [facility], [address], [place], [place], [address], [place] tel:[phone] [facility] No Information Mar-3 0-200 7 [facility] . [address], [address], [place], [address], [place]. tel:[phone] Consulting Provider: Stephanie Ramírez, [address] [place] [address], [address]. tel:[phone] [facility], [address], [place], [place], [address], [place] tel:[phone] [facility] No Information Mar-3 0-200 7 [facility] . [address], [address], [place], [address], [place]. tel:[phone] Referring Provider: Farzad [place], [address] [place] [address], [address]. tel:[phone] lting Provider: Stephanie Ramírez, [address] [place] [address], [address]. tel:[phone] Family History Family Member Type Diagnosis Age At Onset No Information Payers Payer name Insurance type Covered constitution party ID Authoriza timati(s) Medicare [facility] [id number] [facility] CI [id number] Social History Type Description Quantity Date Captured [...]
--- OUTSIDE RECORDS SUMMARY | 2024-08-23 20:52 | XMS_ITS | Encounter Summary ---
Author Organization [employer] Address 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
--- OUTSIDE RECORDS SUMMARY | 2024-08-23 20:53 | XMS_ITS | Patient Health Record ---
Author Organization [employer] Address [address] Antonio[address] [place] [address] Support Name Relationship Address Phone Merissa Burciaga Guarantor Unknown [phone] Reason For Referral No Information Plan Of Treatment No Information Insurance Providers Payer Name Payer Address Payer Phone Subscriber Number Group Number Insured Name Patient Relationship to Insured Coverage Start Date Coverage End Date Medicare E2 [address] [place] [address] [id number] Merissa Burciaga Self - patient is the insured 9 [facility] E2 [address] [place] [address] [id number] Merissa Burciaga Self - patient is the insured
--- OUTSIDE RECORDS SUMMARY | 2024-08-23 20:53 | XMS_ITS | Clinical Summary ---
Author Organization [facility] 2 Address [address] [facility] [address] [facility] [place] [address] Care Team Providers Care Wharf Hand Name Role Phone Lawrence Banks MD Primary Care Provider [phone] Allergies Active Allergy Reactions Criticality Noted Date [...] 1 tablet (88 mcg total) by mouth diet therapist before breakfast Active sertraline (ZOLOFT) 50 mg tablet Take 1 tablet (50 mg total) by mouth daily 4 Active Active Problems Problem Noted Date Diagnosed Date Mixed hyperlipidemia 08/16/2023 Fatigue due to excessive exertion 07/05/2023 Essential hypertension 07/05/2023 Age-related osteoporosis wit hout current pathological fracture 10/13/2021 Disorder of bone 08/24/2016 Osteopenia 07/08/2015 Encounters Date Type Department Care Team Description 08/02/2024 Telephone [facility] Medical Group Cardiology [address] [place] [address] Leigh Ann Chavez MD from [...] on file Legal Sex Female 2:32 AM 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 Based on machine cross-calibration and [...] by the International Society of Clinical Densitometry. [id number] Joaquin Zuniga MD IMG DXA PROCEDURES Final Result from Last 3 Months or Most Recently Relevant to Health Maintenance Insurance MEDICARE [facility] MEDICARE [facility] Care Teams Wharf Hand Relationship Specialty Start Date End Date Lawrence Banks MD [address] [place] [address] [address] PCP - General Family Medicine 07/05/23
[2024-08-23 20:55] VITALS: BP 154/69; PULSE 65; RESP 16; TEMP 36.4; O2SAT 100
[2024-08-24] MEDS: ACETAMINOPHEN 500 MG TABLET 1000 MG PO (01:41)
[2024-08-24] MEDS: LIDOCAINE 5% PATCH 1 PATCH TRANSDERM (01:41)
[2024-08-24] MEDS: CYCLOBENZAPRINE HCL 5 MG TABLET PO (01:41)
[2024-08-24] MEDS: KETOROLAC 30 MG/ML VIAL (*BKC) IM (01:46)
--- NOTE | 2024-08-24 01:54 | ED.EXTPRO ---
HPI - Extremity Problem General Chief complaint: Extremity Problem,Nontraumatic Stated complaint: R hip pain Time Seen by Provider: 08/24/24 01:21 History of Present Illness HPI Narrative: 79 y/o F presents to the ED for right hip pain x1 day. Pt states she was walking when she began having pain to the lateral aspect of her hip that radiates down the lateral aspect of her thigh. States sx are worse when she lays on her right hip and when she ambulates. She denies no injury or trauma. Denies back pain, numbness/tingling, fevers. Denies groin pain. Related Data Home Medications ?Medication ?Instructions ?Recorded ?Confirmed ?Last Taken ?Type multivitamin 1 tablet PO DAILY 07/24/19 08/19/24 Unknown History cetirizine 10 mg capsule (Zyrtec) 10 mg PO DAILY 06/11/21 08/19/24 Unknown History Allergies Allergy/AdvReac Type Severity Reaction Status Date / Time prednisone AdvReac Unknown Flush Verified 08/19/24 09:46 purple rxn Review of Systems Review of Systems: All systems reviewed & are unremarkable except as noted in HPI and below PMFSH Past Medical History Medical History Glaucoma Obesity Belching Bloating symptom Bronchitis Tietze's disease Stress Essential (primary) hypertension Gastro-esophageal reflux disease without esophagitis Vitamin D deficiency, unspecified Surgical History Surgical History Hx of cataract surgery H/O breast biopsy (~2001) Hx of tubal ligation (~1981) Family History Family History Father Hypertension Mother Hypertension Grandparent Cerebrovascular accident Carcinoma of colon, Onset Age: 58 Social History Social History Smoking status: Never smoker Alcohol intake: former Drinks per week: 0 Substance use: never Substance use type: does not use Lack of Transportation: No Lack of Food: Never True Current Housing: I Have Housing Concerned About Future Housing: No Difficulty Paying Gas/Electric Bills: No Difficulty Paying for Meds: No Currently Unemployed: No Education: High School Diploma/GED Difficulty w/ Childcare or Family Care: No Living arrangements: with family Additional living arrangements comments: Occupation/Education: retired Gender identity (if verbalized by the patient): Female Sexual Orientation (if Verbalized by the Patient): Straight or Heterosexual Spiritual care concerns: No Exam Narrative: GENERAL: Well-appearing, well-nourished, and in no acute distress. HEAD: Normocephalic, atraumatic. EYES: EOMI. ENT: Nares clear, no rhinorrhea or epistaxis. Mucous membranes moist. NECK: Supple. BACK: No spinous tenderness, step offs or deformities CHEST: Clear to auscultation. No respiratory distress. HEART: Regular rate and rhythm. No murmur heard. Normal peripheral pulses. ABDOMEN: Soft, nontender, nondistended, normal active bowel sounds. EXTREMITIES: RLE: Point tenderness to the lateral hip overlying the trochanteric bursa with no overlying erythema, warmth. No edema or ecchymosis. Full ROM, pain worse with hip flexion. Mild tenderness over IT band. No tenderness to remainder of extremity. No lower extremity edema. Negative Homans. DP pulse 2+. Sensation intact. Extremity is pink, warm and dry. No rash SKIN: Warm, dry, no rash. NEURO: No focal deficits. Alert and oriented x3 Course Vital Signs Vital signs: Vital Signs Temperature 97.6 F 08/23/24 20:55 Pulse Rate 65 08/23/24 20:55 Respiratory Rate 16 08/23/24 20:55 Blood Pressure 154/69 H 08/23/24 20:55 Pulse Oximetry 100 08/23/24 20:55 Oxygen Delivery Room Air 08/23/24 20:55 Temperature 97.6 F 08/23/24 20:55 Pulse Rate 78 08/24/24 03:46 Respiratory Rate 16 08/24/24 03:46 Blood Pressure 137/91 H 08/24/24 03:46 Pulse Oximetry 97 08/24/24 03:46 Oxygen Delivery Room Air 08/23/24 20:55 MDM - Extremity (Nontraumatic) MDM Narrative Medical decision making narrative: 79-year-old female presents emergency department for lateral right hip pain that started while ambulating today. States the pain radiates down the lateral aspect of the thigh. No injury or trauma. No back pain, numbness or tingling. Exam is notable for point tenderness over the right trochanteric bursa. X-ray of the hip shows no acute osseous findings. There is evidence of degenerative disease and findings suggesting calcific tendinosis. Patient was updated on results. She was given IM Toradol, lidocaine patch, Flexeril and Tylenol in the ED with improvement. Will send Tylenol, Flexeril, lidocaine patches naproxen to the pharmacy. Advised to follow-up closely with her PCP and discussed return precautions. She is agreeable with the plan verbalized understanding. Discharged in stable condition. Discharge Plan Discharge Clinical Impression: Calcific tendinitis of hip, Acute pain of right hip Patient Disposition: Home Condition: Stable Instructions: Antibiotic Form, Hip Pain (ED) Additional Instructions: Please take the medications as needed as directed. Rest, ice, elevate your leg. Follow-up closely with her primary care provider. Return to the emergency department if you develop a fever, significantly worsening pain, or any new or worsening symptoms. Patient Language: Italian Prescriptions: New acetaminophen 500 mg capsule 500 mg PO Q6H PRN (Reason: pain) Qty: 14 0RF lidocaine 5 % adhesive patch,medicated 1 patch topical DAILY Qty: 15 0RF Rx Instructions: leave on most painful area for up to 12 hrs. do not use more than 1 patch in a 24-hour period. naproxen 500 mg tablet 500 mg PO BID PRN (Reason: pain) Qty: 14 0RF cyclobenzaprine 5 mg tablet 5 mg PO TID PRN (Reason: muscle spasm) Qty: 14 0RF No Action multivitamin Tablet 1 tablet PO DAILY (DME) spacer for inhaler See Rx Instructions .Route .MEDSUPPLY Qty: 1 0RF Rx Instructions: As directed Zyrtec 10 mg Capsule 10 mg PO DAILY atorvastatin 20 mg tablet 20 mg PO DAILY Qty: 90 3RF levothyroxine [Synthroid] 88 mcg tablet 88 mcg PO DAILY Qty: 90 3RF sertraline 50 mg tablet 50 mg PO DAILY Qty: 90 1RF clobetasol 0.05 % cream 1 applic topical BID PRN (Reason: itching) Qty: 15 3RF atenolol 25 mg tablet 25 mg PO DAILY Qty: 90 1RF alendronate [Fosamax] 70 mg tablet 70 mg PO WEEKLY Qty: 13 1RF Follow-up/Referrals: Lawrence Banks MD [Primary Care Provider] - Bautista Bojorquez MD [Physician] -
--- OUTSIDE RECORDS SUMMARY | 2024-08-24 02:05 | XMS_ITS | Encounter Summary ---
Author Organization Address [address] [place] [address] Care Team Providers Care Stockroom Worker Name Role Phone Andrzej Farrell MD Primary Care Provider [phone] Encounter Details Date Type Department Care Team (Late st Contact Info) Description 10/06/2016 Lab Requisition [facility] Services [address] [place] [address] [facility], External Provider [address] [place] [address] Social History Tobacco Use Types Packs/Day Years Used Date Smoking Tobacco: Never Alcohol Use Standard Drinks/Week Comments Not Asked 0 (1 standard drink = 0.6 oz pur e alcohol) Comments Unknown Sex and Gender Information Value Date Recorded Sex Assigned at Not on file Legal Sex Female 4:53 AM LICENSED STAFF MFT Gender Identity Not on file Sexual Orientation Not on file documented as of this encounter Plan of Treatment Not on file documented as of this encounter Procedures Procedure Name Priority Date/Time Associated Diagnosis Comments D-DIMER Stat 10/06/2016 1:01 PM CDT documented in this encounter Results * D-DIMER (10/06/2016 1:01 PM CDT) D-DIMER QUANT <0.27 <0.42 ug/mL FEU 10/06/2016 1:05 PM CDT [facility] Comment: The DIC reference range is [...] CDT 10/06/2016 1:02 PM CDT External Provider [facility] HEMATOLOGY ORDERABLES Fi nal Result [facility]# [id number] [address] [place] [address] documented in this encounter Visit Diagnoses Not on filedocumented in this encounter Care Teams Stockroom Worker Relationship Specialty Start Date End Date Andrzej Farrell MD [address] [place] [id number] PCP - General 08/31/02 documented as of this encounter
--- OUTSIDE RECORDS SUMMARY | 2024-08-24 02:05 | XMS_ITS | Encounter Summary ---
Author Organization [employer] Address 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
--- OUTSIDE RECORDS SUMMARY | 2024-08-24 02:05 | XMS_ITS | Continuity of Care Document ---
Author Organization [facility] Address [address] [place] [address] Phone Care Team Providers Care Adjunct Instructor Of Women'S Studies Name Role Phone Root OD, Shady Unavailable [...] Diagnoses Date Provider Providers Copied on Encounter [facility], [address], [place], [place], [id number], [place] tel:[phone] SEC [facility] No Information 9-201 0 Root OD Shady. [address] , [address], [place], [address], [place]. tel:[phone] [facility], [address], [place], [place], [address], [place] tel:[phone] [facility] No Information 2-201 0 [facility] . [address], [address], [place], [place], [address], . tel:[phone] Consulting Provider: Stephanie Ramírez, [address] [place] [address], [facility][note 3]. tel:[phone] [facility], [address], [place], [place], [address], [place] tel:[phone] [facility] No Information 1 5-200 9 [facility] . [address], [address], [place], [place], [address], . tel:[phone] Referring Provider: Shady Root OD A, [address], [place], [place], [facility][note 3]. tel:[phone] lting Provider: Stephanie Ramírez, [address] [place] [address], [facility][note 3]. tel:[phone] [facility], [address], [place], [place], [address], [place] tel:[phone] [facility] No Information 1200 9 Doisy Edward. [address] , [address], [place], [address], [place]. tel:[phone] [facility], [address], [place], [place], [address], [place] tel:[phone] [facility] No Information 3 1-200 9 Root OD Shady. [address] , [address], [place], [address], [place]. tel:[phone] [facility], [address], [place], [place], [address], [place] tel:[phone] [facility] No Information Sep-2 6-200 8 Root OD Shady. [address], [address], [place], [address], [place]. tel:[phone] [facility], [address], [place], [place], [address], [place] tel:[phone] [facility] No Information Mar-3 0-200 7 [facility] . [address], [address], [place], [address], [place]. tel:[phone] Consulting Provider: Stephanie Ramírez, [address] [place] [address], [address]. tel:[phone] [facility], [address] [facility] [address], [place], [place], [address], [place] tel:[phone] [facility] No Information Mar-3 0-200 7 [facility] . [address], [address], [place], [address], [place]. tel:[phone] Referring Provider: Farzad Dallas, [address] [place] [address], [address]. tel:[phone] lting Provider: Stephanie Ramírez, [address] [place] [address], [address]. tel:[phone] Family History Family Member Type Diagnosis Age At Onset No Information Payers Payer name Insurance type Covered green party ID Authoriza timati(s) Medicare [facility] SAULT [id number] [facility] CI [id number] Social History Type Description Quantity Date Captured [...]
--- OUTSIDE RECORDS SUMMARY | 2024-08-24 02:05 | XMS_ITS | Encounter Summary ---
Author Organization [facility] Address [address] [place] [address] Care Team Providers Care Mail Inserter Name Role Phone Andrzej Farrell MD Primary Care Provider [phone] Encounter Details Date Type Department Care Team (Latest Contact Info) Description 09/06/2008 Outpatient Historical [facility] Ricky Olmos MD [address] [facility] [address] [place] [address] Special Screening for Osteoporosis Social History Tobacco Use Types Packs/Day Years Used Date Smoking Tobacco: Never Assessed Comments Unknown Sex and Gender Information Value Date Recorded Sex Assigned at Not on file 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 [place], [place] [address] Admit Date: 09/06/2008 MERISSA ROSALES Sex: F Admit Prov: RICKY OLMOS Date: 1945 Primary Care Prov: ANDRZEJ FARRELL CMRN: [id number] Room: [facility]: [id number] IMAGING SERVICES Ordering Prov: N/A Accession Number: [id number] Interpretation Examination: Bone Density Study (DEXA) Clinical [...] Procedure Note Maricruz Jones MD - 09/06/[address] [address] Admit Date: 09/06/2008 MERISSA ROSALES Sex: F Admit Prov: RICKY OLMOS Date: 1945 Primary Care Prov: ANDRZEJ FARRELL [id number] [facility] Ordering Prov: N/A Interpretation Examination: [...] osteoporosis documented in this encounter Care Teams Mail Inserter Relationship Specialty Start Date End Date Andrzej Farrell MD [address] [place] [address] PCP - General 08/31/02 documented as of this encounter
--- OUTSIDE RECORDS SUMMARY | 2024-08-24 02:05 | XMS_ITS | Clinical Summary ---
Author Organization [facility] Address [address] [place] [address] [place] [address] Phone Care Team Providers Care Outsole Cementer Machine Name Role Phone Andrzej Farrell MD Primary Care Provider [phone] Allergies Active Allergy Reactions Criticality Noted Date [...] on file Legal Sex Female 4:53 AM SQL SERVER DBA Gender Identity Not on file Sexual Orientation Not on file Last Filed Vital Signs Vital Sign Reading Time Taken Comments Blood Pressure 128/79 05/02/2015 12:17 PM SQL SERVER DBA rt wrist Pulse 60 05/02/2015 12:17 PM SQL SERVER DBA Temperature - - Respiratory Rate - - Oxygen Saturation - - Inhaled Oxygen Concentration - - Weight 74.8 kg (165 lb) 05/02/2015 12:17 PM SQL SERVER DBA Height 167.6 cm (5' 6) 05/02/2015 12:17 PM SQL SERVER DBA Body Mass Index 26.63 05/02/2015 12:17 PM SQL SERVER DBA Plan of Treatment Health Maintenance Due Date [...] OR MORE SITES Dictated from Location 1 ([facility]) HISTORY 69 year-old F with post menopausal symptoms. PROCEDURE: Planar images of the lumbar spine and hip(s) using a [employer] DEXA scanner for bone mineral density determination (BMD). Compared to the prior bone density performed 10/25/2012 FINDINGS: Lumbar Spine (L1-L4) 1.003 gm/cm2, T-score: -1.5 Prior: 1.002 gm/cm2, +0.1% change Left femoral neck 0.760 gm/cm2, T-score: -2.0 Prior: 0.771 gm/cm2, -1.4% change Right femoral neck 0.796 gm/cm2, T-score: -1.7 Prior: 0.802 gm/cm2, -0.7% change Comments: None. Detailed report placed in Imaging Section of [facility] EMR. IMPRESSION Osteopenic BMD. Lumbar Spine T-score: [...] OR MORE SITES Dictated from Location 1 ([facility]) HISTORY 69 year-old F with post menopausal symptoms. PROCEDURE: Planar images of the lumbar spine and hip(s) using a [employer] DEXA scanner for bone mineral density determination (BMD). Compared to the prior bone density performed 10/25/2012 FINDINGS: Lumbar Spine (L1-L4) 1.003 gm/cm2, T-score: -1.5 Prior: 1.002 gm/cm2, +0.1% change Left femoral neck 0.760 gm/cm2, T-score: -2.0 Prior: 0.771 gm/cm2, -1.4% change Right femoral neck 0.796 gm/cm2, T-score: -1.7 Prior: 0.802 gm/cm2, -0.7% change Comments: None. Detailed report placed in Imaging Section of [facility] EMR. IMPRESSION Osteopenic BMD. Lumbar Spine T-score: [...] MEDICARE PART A AND B Care Teams Outsole Cementer Machine Relationship Specialty Start Date End Date Andrzej Farrell MD [address] [place] [address] PCP - General 08/31/02
--- OUTSIDE RECORDS SUMMARY | 2024-08-24 02:05 | XMS_ITS | Encounter Summary ---
Author Organization [facility] [employer] Address [address] [place] [address] Care Team Providers Care Mainspring Strip Gauger Name Role Phone Andrzej Farrell MD Primary Care Provider [phone] Encounter Details Date Type Department Care Team (Late st Contact Info) Description 09/13/2002 Outpatient Historical [facility] [place] Support Serv. ([facility]t Cardiology[facility]) [address] [place] [address] Buck Peguero MD NO ADDRESS ON FILE Social History Tobacco Use Types Packs/Day Years Used Date Smoking Tobacco: Never Assessed Comments Unknown Sex and Gender Information Value Date Recorded Sex Assigned at Not on file Legal Sex Female 4:53 AM ADVISER SALES Gender Identity Not on file Sexual Orientation Not on file documented as of this encounter Plan of Treatment Not on file documented as of this encounter Visit Diagnoses Not on filedocumented in this encounter Care Teams Mainspring Strip Gauger Relationship Specialty Start Date End Date Andrzej Farrell MD [address] [place] [address] PCP - General 08/31/02 documented as of this encounter
--- OUTSIDE RECORDS SUMMARY | 2024-08-24 02:05 | XMS_ITS | Encounter Summary ---
Author Organization [facility] Address 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
--- OUTSIDE RECORDS SUMMARY | 2024-08-24 02:05 | XMS_ITS | Encounter Summary ---
Author Organization [employer] Address 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
--- OUTSIDE RECORDS SUMMARY | 2024-08-24 02:05 | XMS_ITS | Clinical Summary ---
Author Organization [facility] [address] [place] [address] Care Team Providers Care Pricing Supervisor Name Role Phone Lawrence Banks MD Primary Care Provider [phone] Allergies Active Allergy Reactions Criticality Noted Date [...] 1 tablet (88 mcg total) by mouth academic affairs manager before breakfast Active sertraline (ZOLOFT) 50 mg tablet Take 1 tablet (50 mg total) by mouth daily 4 Active Active Problems Problem Noted Date Diagnosed Date Mixed hyperlipidemia 08/16/2023 Fatigue due to excessive exertion 07/05/2023 Essential hypertension 07/05/2023 Age-related osteoporosis wit hout current pathological fracture 10/13/2021 Disorder of bone 08/24/2016 Osteopenia 07/08/2015 Encounters Date Type Department Care Team Description 08/02/[address] [facility] Cardiology [address] [place] [address] Leigh Ann Chavez MD from [...] on file Legal Sex Female 2:32 AM MANAGER COPY Gender Identity Female 06/28/2023 12:09 PM CDT [...] Bone mineral density was performed on a [employer] Densitometer. Based on machine cross-calibration and [...] by the International Society of Clinical Densitometry. [id number] Joaquin Zuniga MD IMG DXA PROCEDURES Final Result from Last 3 Months or Most Recently Relevant to Health Maintenance Insurance MEDICARE [facility] MEDICARE [facility] Care Teams Pricing Supervisor Relationship Specialty Start Date End Date Lawrence Banks MD [address] [place] [address] [address] PCP - General Family Medicine 07/05/23
--- OUTSIDE RECORDS SUMMARY | 2024-08-24 02:05 | XMS_ITS | Referral Summary ---
Author Organization [facility] Medical [facility] [place] [facility] Address [address] [facility] [place] [address] Care Team Providers Care Manager Equipment Name Role Phone Lawrence Banks MD Primary Care Provider [phone] Encounters Date Type Department Care Team Description 08/02/2024 Telephone [facility] Cardiology [address] [place] [address] Leigh Ann Chavez MD from [...] 1 tablet (88 mcg total) by mouth plate drying machine tender before breakfast Active sertraline (ZOLOFT) 50 mg [...] on file Legal Sex Female 2:32 AM PAINT LINE OPERATOR Gender Identity Female 06/28/2023 12:09 PM CDT [...] Bone mineral density was performed on a HoloRedLasso Discovery Densitometer. Based on machine cross-calibration and [...] by the International Society of Clinical Densitometry. [id number] Joaquin Zuniga MD IMG DXA PROCEDURES Final Result from Last 3 Months or Most Recently Relevant to Health Maintenance Insurance MEDICARE [employer] MEDICARE [employer] Care Teams Manager Equipment Relationship Specialty Start Date End Date Lawrence Banks MD [address] [place] [address] [address] PCP - General Family Medicine 07/05/23
[2024-08-24] MEDS: oxyCODONE HCL (*CRX) 2.5 MG TAB IR PO (03:15)
[2024-08-24 03:46] VITALS: BP 137/91; PULSE 78; RESP 16; O2SAT 97
== END 2024-08-24 04:05 | disposition home or self-care (01) ==
PROVIDERS: Emergency Provider Physician Assistant; PCP Family Medicine
DX: M65.251 Calcific tendinitis, right thigh (principal); H40.9 Unspecified glaucoma; I10 Essential (primary) hypertension; K21.9 Gastro-esophageal reflux disease without esophagitis; E55.9 Vitamin D deficiency, unspecified; Z98.49 Cataract extraction status, unspecified eye; Z79.899 Other long term (current) drug therapy
CPT/HCPCS: 73521; 96372; 99283; A9270; J1885

== ENCOUNTER 2024-10-06 12:22 | Emergency (ER) | payer MEDICARE, SELFPAY ==
--- NOTE | ~2024-10-06 | XR_ITS ---
EXAMINATION: XR chest 2V 10/06/2024 14:00 INDICATION: Back pain PROCEDURE: 2 view chest COMPARISON: Comparison to multiple prior studies sequentially, with oldest reviewed study dated 11/02. FINDINGS: The lungs are clear. The cardiomediastinal silhouette is within normal limits. There are no pleural effusions. There is no pneumothorax suspected. There is apical pleural thickening/scarri ng. IMPRESSION: 1: NO ACUTE CARDIOPULMONARY DISEASE. Reviewed, dictated and finalized at location B.
--- NOTE | 2024-10-06 12:41 | ED_ITS ---
HPI - General Adult General Chief complaint: Back Pain/Injury Stated complaint: Pain across back/stomach pain Time Seen by Provider: 10/06/24 12:50 Source: patient Mode of arrival: ambulatory Limitations: no limitations History of Present Illness HPI narrative: 79-year-old female presents with multiple complaints. She reports she has pressure upper back for about 1-2 weeks. She denies any injury or trauma. She denies relieving factors, reports exacerbating factors are sitting in a chair leaning against it. She reports the heated seats in her car temporarily improve the pain. She denies any rash, open skin, redness to the area. She reports general malaise, yesterday she had an episode of sweats. She reports nausea. She reports yesterday she had an episode of lower abdominal cramping and diarrhea. She denies weakness in any extremity. She denies dysuria, frequency, urgency, fever. She denies vomiting or current abdominal pain. 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 She reports she has been treated with antibiotics for it. MD complaint: Upper back pain Related Data Home Medications ?Medication ?Instructions ?Recorded ?Confirmed ?Last Taken ?Type multivitamin 1 tablet PO DAILY 07/24/19 08/19/24 Unknown History cetirizine 10 mg capsule (Zyrtec) 10 mg PO DAILY 06/11/21 08/19/24 Unknown History Allergies Allergy/AdvReac Type Severity Reaction Status Date / Time prednisone AdvReac Unknown Flush Verified 10/06/24 12:41 purple rxn Review of Systems Review of Systems: CONSTITUTIONAL: Reports malaise, sweats. Denies fever. EYES: Denies visual changes, redness, or discharge. ENT: Denies rhinorrhea, congestion, sinus pain, otalgia or sore throat. Reports tooth pain CARDIOVASCULAR: Denies chest pain, palpitations, or edema. RESPIRATORY: Denies cough or dyspnea. GASTROINTESTINAL: Denies current abdominal pain. Denies, vomiting, diarrhea, bloody, or mucous stools. Reports nausea today. Reports lower abdominal cramping and diarrhea yesterday. GENITOURINARY: Denies dysuria or hematuria. SKIN: Denies rash or itching. MUSCULOSKELETAL: Denies back pain, joint pain, or myalgia. NEUROLOGIC: Denies numbness, weakness, or headache. PSYCHIATRIC: Denies anxiety or depression. All systems reviewed & are unremarkable except as noted in HPI and below PMFSH Past Medical History Medical History Glaucoma Obesity Belching Bloating symptom Bronchitis Tietze's disease Stress Essential (primary) hypertension Gastro-esophageal reflux disease without esophagitis Vitamin D deficiency, unspecified Surgical History Surgical History Hx of cataract surgery H/O breast biopsy (~2001) Hx of tubal ligation (~1981) Family History Family History Father Hypertension Mother Hypertension Grandparent Cerebrovascular accident Carcinoma of colon, Onset Age: 58 Social History Social History Smoking status: Never smoker Alcohol intake: former Drinks per week: 0 Substance use: never Substance use type: does not use Lack of Transportation: No Lack of Food: Never True Current Housing: I Have Housing Concerned About Future Housing: No Difficulty Paying Gas/Electric Bills: No Difficulty Paying for Meds: No Currently Unemployed: No Education: High School Diploma/GED Difficulty w/ Childcare or Family Care: No Living arrangements: with family Additional living arrangements comments: Occupation/Education: retired Gender identity (if verbalized by the patient): Female Sexual Orientation (if Verbalized by the Patient): Straight or Heterosexual Spiritual care concerns: No Comments At time of signature, agree with nursing past medical, surgical, social and family history. There is no relevant family history pertinent to the presenting complaint Exam Narrative: GENERAL: Well-appearing, well-nourished, and in no acute distress. HEAD: Normocephalic, atraumatic. EYES: PERRLA, sclera clear, and EOMI. No nystagmus. ENT: Nares clear. Mucous membranes moist. NECK: Supple. CHEST: No respiratory distress. Clear to auscultation. No bony deformities, no asymmetry. Speaks in full sentences. HEART: Regular rate and rhythm. No murmur heard. Normal peripheral pulses. ABDOMEN: Soft, mild generalized tenderness, nondistended, normal active bowel sounds, no palpable masses. EXTREMITIES: Normal range of motion. No edema. Normal strength and sensation. Tenderness to palpation above the bra line on the right back SKIN: Warm, dry, no visible rash, bruising, redness, warmth. NEURO: Alert and oriented x3. No focal deficits. Cranial nerves II through XII grossly intact PSYCH: Normal mood and affect Course Course Emergency Course: Patient is aware of diagnosis, understands and agrees to treatment plan. Anticipatory guidance given. Patient agrees to follow-up as directed and is aware of reasons to seek care at the emergency department. Portions of this record may have been created with voice recognition software Level of Care: Express Care Visit Vital Signs Vital signs: Reviewed. Medical Decision Making MDM Narrative Medical decision making narrative: The patient was evaluated by myself in the [facility]. History is obtained from patient who is an independent historian and physical exam was performed.? Available medical records were reviewed at this time. ? Exam findings show no acute concerns or changes; patient is non-toxic appearing and is in no distress. Patient is appropriate for outpatient treatment and follow-up. ? I have evaluated and discussed social determinants of health with the patient that could potentially impact subsequent diagnosis and treatment plans. ? Differential diagnosis and treatment plan were discussed with the patient. Patient agrees with discussion and after shared medical decision making agrees with plan of care. All questions were answered to the patient's satisfaction. EKG is unchanged from previous EKGs, patient's back pain is reproducible. Chest x-ray is unremarkable. Urinalysis is normal. Back pain is likely musculoskeletal related. Discussed this with patient and advised follow-up with her primary care doctor. Patient prefers to not take medications, she is going to use [id number] medications and pain patches. Imaging Data My impression: Images reviewed, interpreted by radiologist, agree, see report. Radiologist's impression: EXAMINATION: XR chest 2V 10/06/2024 14:00 INDICATION: Back pain PROCEDURE: 2 view chest COMPARISON: Comparison to multiple prior studies sequentially, with oldest reviewed study dated 11/03/2023. FINDINGS: The lungs are clear. The cardiomediastinal silhouette is within normal limits. There are no pleural effusions. There is no pneumothorax suspected. There is apical pleural thickening/scarring. IMPRESSION: 1: NO ACUTE CARDIOPULMONARY DISEASE. ECG Data EKG #1: ECG completion date: 10/06/24 ECG completion time: 13:01 Prior ECG tracings: available for review Interpretation: Rate 59, TN interval 216, QRS duration 67, first-degree AV block EKG Interpretation: bradycardia and sinus rhythm Critical Care Time Critical Care Time Critical Care Time: No Discharge Plan Discharge Clinical Impression: Upper back pain on right side Patient Disposition: Home Condition: Stable Instructions: Back Pain (ED) Additional Instructions: Please follow up with your Primary Care Doctor for further evaluation. Walking and other gentle exercising several times a week has been shown to improve back pain; bed rest is not recommended. Take Tylenol as needed for pain. You may apply ice followed by he to the area as needed. Use [id number]-[id number] pain patches as needed. If you experience any worsening pain, swelling, numbness, weakness please go to ER. Contact your doctor or go to the emergency department if you develop problems with bladder or bowel function, weakness or loss of feeling in one or both of your legs, or any other serious concerns. Patient Language: Telugu Prescriptions: No Action multivitamin Tablet 1 tablet PO DAILY (DME) spacer for inhaler See Rx Instructions .Route .MEDSUPPLY Qty: 1 0RF Rx Instructions: As directed Zyrtec 10 mg Capsule 10 mg PO DAILY acetaminophen 500 mg capsule 500 mg PO Q6H PRN (Reason: pain) Qty: 14 0RF lidocaine 5 % adhesive patch,medicated 1 patch topical DAILY Qty: 15 0RF Rx Instructions: leave on most painful area for up to 12 hrs. do not use more than 1 patch in a 24-hour period. naproxen 500 mg tablet 500 mg PO BID PRN (Reason: pain) Qty: 14 0RF cyclobenzaprine 5 mg tablet 5 mg PO TID PRN (Reason: muscle spasm) Qty: 14 0RF atorvastatin 20 mg tablet 20 mg PO DAILY Qty: 90 3RF levothyroxine [Synthroid] 88 mcg tablet 88 mcg PO DAILY Qty: 90 3RF sertraline 50 mg tablet 50 mg PO DAILY Qty: 90 1RF clobetasol 0.05 % cream 1 applic topical BID PRN (Reason: itching) Qty: 15 3RF atenolol 25 mg tablet 25 mg PO DAILY Qty: 90 1RF alendronate [Fosamax] 70 mg tablet 70 mg PO WEEKLY Qty: 13 1RF Follow-up/Referrals: Lawrence Banks MD [Primary Care Provider] - Time of Disposition: 14:17
[2024-10-06 12:42] VITALS: BP 113/72; PULSE 64; RESP 18; TEMP 36.8; O2SAT 95
--- NOTE | 2024-10-06 12:42 | ECG_ITS ---
Test Date: 2024-10-06 13:01:37 Measurements Intervals [place] Rate: 59 P: 75 DC: 216 QRS: 31 QRSD: 67 T: 65 QT: 405 QTc: 404 Interpretive Statements SINUS BRADYCARDIA WITH FIRST DEGREE AV BLOCK LOW QRS VOLTAGE IN PRECORDIAL LEADS BORDERLINE ST-T WAVE ABNORMALITY- HIGH LATERAL LEADS BASELINE ARTIFACT- I, II, III, AVR, AVL, AVF BORDERLINE ECG No previous ECG available for comparison Electronically Signed On 10-06-2024 13:14:47 CDT by Junior Gill D.O.
[2024-10-06 13:39] LABS: EDUAAPPEAR Clear; EDUABILI 1+ (Negative); EDUABLOOD Trace (Negative); EDUACOLOR1 Yellow; EDUAGLUCOSE Negative (Negative); EDUAKETONE Trace (Negative); EDUALEUKO Negative (Negative); EDUANITRATE Negative (Negative); EDUAPH 6.0; EDUAPROTEIN Negative (Negative); EDUASPGRAVITY 1.025; EDUAUROBILI 0.2
== END 2024-10-06 14:22 | disposition home or self-care (01) ==
PROVIDERS: Emergency Provider Nurse Practitioner; PCP Family Medicine
DX: M54.6 Pain in thoracic spine (principal); R00.1 Bradycardia, unspecified; I44.0 Atrioventricular block, first degree; I10 Essential (primary) hypertension; H40.9 Unspecified glaucoma; E66.9 Obesity, unspecified; Z68.30 Body mass index [BMI] 30.0-30.9, adult; K21.9 Gastro-esophageal reflux disease without esophagitis
CPT/HCPCS: 71046; 81003; 93005; 99213; G0463

== ENCOUNTER 2024-10-30 18:27 | Emergency (ER) | payer MEDICARE, SELFPAY ==
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
[2024-10-30 18:36] VITALS: BP 139/65; PULSE 62; RESP 16; TEMP 36.1; O2SAT 98
[2024-10-30] MEDS: DACRIOSE EYE IRRIGATION 118 ML BOTTLE 120 ML EACH EYE (18:48)
== END 2024-10-30 18:52 | disposition home or self-care (01) ==
PROVIDERS: Emergency Provider Nurse Practitioner; PCP Family Medicine
DX: H57.13 Ocular pain, bilateral (principal); I10 Essential (primary) hypertension; K21.9 Gastro-esophageal reflux disease without esophagitis; E55.9 Vitamin D deficiency, unspecified; E66.9 Obesity, unspecified; Z68.30 Body mass index [BMI] 30.0-30.9, adult; H40.9 Unspecified glaucoma
CPT/HCPCS: 99213; A9270; G0463

== ENCOUNTER 2024-11-03 15:33 | Outpatient (CLI) | payer MEDICARE, SELFPAY ==
--- NOTE | ~2024-11-03 | MM_ITS ---
EXAMINATION: MM screening sandy BI w natalia HISTORY: Screening TECHNIQUE: Craniocaudal and mediolateral oblique 3-D tomosynthesis images were obtained and synthetic 2-D images were generated. CAD analysis was submitted and interpreted. COMPARISON: No prior mammogram is available for comparison at this institution. BREAST PARENCHYMAL COMPOSITION: Not Dense: The breasts are almost entirely fatty. FINDINGS: There is no evidence of suspicious mass, calcification, or architectural distortion to suggest malignancy. There has been no suspicious interval change. IMPRESSION: 1. No mammographic evidence of malignancy. Recommend routine screening mammography in one year. BI-RADS Category 2: Benign finding(s) Reviewed, dictated and finalized at location Q. IMPRESSION: 1. No mammographic evidence of malignancy. Recommend routine screening mammogra phy in one year. BI-RADS Category 2: Benign finding(s)
== END 2024-11-03 15:34 | disposition home or self-care (01) ==
LOC: MICIMG 15:34
PROVIDERS: PCP Family Medicine; Visit Provider Student in an Organized Health Care Education/Training Program
DX: Z12.31 Encounter for screening mammogram for malignant neoplasm of breast (principal)
CPT/HCPCS: 77063; 77067

== ENCOUNTER 2024-11-18 15:48 | Emergency (ER) | payer MEDICARE, SELFPAY ==
--- NOTE | 2024-11-18 15:53 | ED.GENADULT ---
HPI - General Adult General Chief complaint: Abdominal Pain Stated complaint: Abdominal Pain Time Seen by Provider: 11/18/24 15:56 Source: patient, RN notes reviewed and old records reviewed Mode of arrival: ambulatory Limitations: no limitations History of Present Illness HPI narrative: 79-year-old female presents to the [facility] with complaints of lower abdominal pain, bloating. Patient reports that the pain started on when she had some diarrhea. Had a formed bowel movement this morning. Did take Pepto on . States over the last 2 days pain has greatly increased. Denies nausea or vomiting. Reports that she feels extremely bloated. Tender to palpation Denies any frequency urgency or burning with urination Onset (ago): day(s) (2) Treatments prior to arrival: other (Pepto) Related Data Home Medications ?Medication ?Instructions ?Recorded ?Confirmed ?Last Taken ?Type multivitamin 1 tablet PO DAILY 07/24/19 10/30/24 Unknown History cetirizine 10 mg capsule (Zyrtec) 10 mg PO DAILY 06/11/21 10/30/24 Unknown History Allergies Allergy/AdvReac Type Severity Reaction Status Date / Time prednisone AdvReac Unknown Flush Verified 11/18/24 15:57 purple rxn Review of Systems Review of Systems: All systems reviewed & are unremarkable except as noted in HPI and below Constitutional: Constitutional: Reports no additional constitutional complaints ENT: Reports system reviewed and no additional complaints, except as documented Cardiovascular: Cardiovascular: Reports no additional cardiovascular complaints, Denies chest pain and Denies dyspnea Respiratory: Respiratory: Reports no additional respiratory complaints, Denies chest congestion, Denies cough and Denies dyspnea Gastrointestinal: Gastrointestinal: Reports as per HPI, Reports abdominal pain, Reports bloating and Reports diarrhea (X1 on ) Musculoskeletal: Musculoskeletal: Reports no additional musculoskeletal complaints Integumentary/Breasts: Skin/Breast: Reports system reviewed and no additional complaints, except as docu PMFSH Past Medical History Medical History Glaucoma Obesity Belching Bloating symptom Bronchitis Tietze's disease Stress Essential (primary) hypertension Gastro-esophageal reflux disease without esophagitis Vitamin D deficiency, unspecified Surgical History Surgical History Hx of cataract surgery H/O breast biopsy (~2001) Hx of tubal ligation (~1981) Family History Family History Father Hypertension Mother Hypertension Grandparent Cerebrovascular accident Carcinoma of colon, Onset Age: 58 Social History Social History Smoking status: Never smoker Alcohol intake: former Drinks per week: 0 Substance use: never Substance use type: does not use Lack of Transportation: No Lack of Food: Never True Current Housing: I Have Housing Concerned About Future Housing: No Difficulty Paying Gas/Electric Bills: No Difficulty Paying for Meds: No Currently Unemployed: No Education: High School Diploma/GED Difficulty w/ Childcare or Family Care: No Living arrangements: with family Additional living arrangements comments: Occupation/Education: retired Gender identity (if verbalized by the patient): Female Sexual Orientation (if Verbalized by the Patient): Straight or Heterosexual Spiritual care concerns: No Comments At the time of my signature, I reviewed and agree with the nursing past medical, surgical, social, and family history. There is no relevant family history pertinent to the patient complaint. Exam Const: General: cooperative, no acute distress, well developed, alert, ill appearing chronically, uncomfortable and well nourished Nutritional Appearance: well nourished Orientation/consciousness: patient oriented x3 Limitations: no limitations HENMT: Head: normal to inspection Mouth: Yes Normal oral and palatal mucosa present, Yes lip normal, Yes tongue normal and Yes moist mucous membranes Throat: posterior oropharynx normal, uvula midline and no uvular edema Eyes: General: appearance normal, both eyes and all related structures Alignment and Position: alignment normal Neck: Neck: normal visual inspection, full ROM, no lymphadenopathy and no meningeal signs Chest: Chest palpation & inspection: normal inspection of the chest Resp: Effort & Inspection: normal respiratory effort and able to speak in complete sentences Auscultation: clear to auscultation bilaterally, no crackles, no rales, no rhonchi and no wheezes Cardio: Rate: regular rate GI: GI Palp: Yes abdominal tenderness, Yes Firmness to palpation present (GI), Yes Tenderness to palpation present (GI) and No Guarding due to palpation present (GI) Auscultation: Hypoactive bowel sounds present Skin: General skin exam: normal color and no rashes or lesions noted Neuro: General: patient oriented x3, gait normal, moves all extremities and no meningeal signs Cognition (Neuro): normal cognition Speech: normal speech Gait exam (Neuro): Normal gait present Extrem: General: normal to inspection, full ROM, capillary refill normal and normal gait Psych: Appearance: grossly normal and well kempt Mental Status: mental status grossly normal Speech and movement: Normal speech and movement present and Clear speech present Affect: normal affect Attitude: cooperative Course Course Level of Care: Express Care Visit Vital Signs Vital signs: Vital Signs Temperature 98.3 F 11/18/24 15:58 Pulse Rate 64 11/18/24 15:58 Respiratory Rate 14 11/18/24 15:58 Blood Pressure 145/85 H 11/18/24 15:58 Pulse Oximetry 100 11/18/24 15:58 Oxygen Delivery Room Air 11/18/24 15:58 Temperature 98.3 F 11/18/24 15:58 Pulse Rate 64 11/18/24 15:58 Respiratory Rate 14 11/18/24 15:58 Blood Pressure 145/85 H 11/18/24 15:58 Pulse Oximetry 100 11/18/24 15:58 Oxygen Delivery Room Air 11/18/24 15:58 Reviewed Transfer Transfered to: [place] Transportation: Other (POV declined EMS) Transfer rationale: Patient with significant lower abdominal pain that has increased over the last 2 days. Denies any abdominal surgeries in the past Sending for higher level of care Accepting physician: Dr. Bach Medical Decision Making [facility] Narrative Medical decision making narrative: Patient appears uncomfortable sitting in exam room. Patient is nontoxic, vitals are stable. Patient presents with increasing pain especially with movement, walking to the lower abdominal area. Pain with palpation to the entire lower abdominal area Patient being sent for higher level of care Transfer instructions reviewed with patient to go directly to the ER. Do not eat or drink until cleared by ER provider. 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 All questions have been answered, and the patient deny any further Some parts of this dictation were generated by voice recognition software and may contain typographical and/or grammatical inaccuracies. Differential Diagnosis Differential Diagnosis: Appendicitis, bowel blockage, diverticulitis, diverticulosis, acute abdomen Medical Records Medical records reviewed: Yes I reviewed the external patient's medical records. Vital Signs Vital Signs: Vital Signs Temperature 98.3 F 11/18/24 15:58 Pulse Rate 64 11/18/24 15:58 Respiratory Rate 14 11/18/24 15:58 Blood Pressure 145/85 H 11/18/24 15:58 Pulse Oximetry 100 11/18/24 15:58 Oxygen Delivery Room Air 11/18/24 15:58 Temperature 98.3 F 11/18/24 15:58 Pulse Rate 64 11/18/24 15:58 Respiratory Rate 14 11/18/24 15:58 Blood Pressure 145/85 H 11/18/24 15:58 Pulse Oximetry 100 11/18/24 15:58 Oxygen Delivery Room Air 11/18/24 15:58 Reviewed Lab Data Lab results reviewed: Yes I reviewed the patient's lab results. Labs: Reviewed Critical Care Time Critical Care Time Critical Care Time: No Discharge Plan Discharge Clinical Impression: Abdominal pain, lower Patient Disposition: Acute Care Hospital Condition: Stable Patient Language: Tongan Prescriptions: No Action multivitamin Tablet 1 tablet PO DAILY (DME) spacer for inhaler See Rx Instructions .Route .MEDSUPPLY Qty: 1 0RF Rx Instructions: As directed Zyrtec 10 mg Capsule 10 mg PO DAILY acetaminophen 500 mg capsule 500 mg PO Q6H PRN (Reason: pain) Qty: 14 0RF atorvastatin 20 mg tablet 20 mg PO DAILY Qty: 90 3RF levothyroxine [Synthroid] 88 mcg tablet 88 mcg PO DAILY Qty: 90 3RF sertraline 50 mg tablet 50 mg PO DAILY Qty: 90 1RF atenolol 25 mg tablet 25 mg PO DAILY Qty: 90 1RF Follow-up/Referrals: Lawrence Banks MD [Primary Care Provider, Family Practice]
[2024-11-18 15:58] VITALS: BP 145/85; PULSE 64; RESP 14; TEMP 36.8; O2SAT 100
== END 2024-11-18 16:09 | disposition short-term general hospital (02) ==
LOC: EXPGOSH 15:51
PROVIDERS: Emergency Provider Nurse Practitioner; PCP Family Medicine
DX: R10.30 Lower abdominal pain, unspecified (principal); I10 Essential (primary) hypertension; K21.9 Gastro-esophageal reflux disease without esophagitis; E66.9 Obesity, unspecified; Z68.30 Body mass index [BMI] 30.0-30.9, adult
CPT/HCPCS: 99212; G0463

== ENCOUNTER 2024-11-18 16:25 | Emergency (ER) | payer MEDICARE, SELFPAY ==
--- OUTSIDE RECORDS SUMMARY | 2009-10-03 07:45 | XMS_ITS | Continuity of Care Document ---
Author Organization [facility] Address [address] [place] [address] Phone Care Team Providers Care Road Test Examiner Name Role Phone Root OD, Shady Unavailable Unavailable Procedures Procedure Date Eye Exam & Treatment Refraction Progressive Lens, Polycarb Tint Plastic, Non-Josey Progressive Lens, Polycarb Frames Deluxe Anti-reflective Coating Tax - Medical Eye Exam Established Pt No Script Eye Exam & Treatment No Script Refraction Eye Exam, New Patient Progressive Lens, Plastic Frames Deluxe Tax - Medical Tint Plastic, Non-Josey Progressive Lens, Plastic Frames Deluxe Tax - Medical Advance Directives Directive Yes / No Effective Date File Name No Information Encounters Encounter Description Practice Location Reason(s) For Visit Diagnoses Date Provider Providers Copied on Encounter [facility], [address], [place], [place], [id number], [place] tel:[phone] [facility] No Information 9-201 0 Root OD Shady. [address] , [address], [place], [address], [place]. tel:[phone] [facility], [address], [place], [place], [id number], [place] tel:[phone] [facility] No Information 2-201 0 [facility] . [address], [address], [place], [place], [address], . tel:[phone] Consulting Provider: Stephanie Ramírez, [address] [place] [address], [facility]. tel:[phone] [facility], [address], [place], [place], [id number], [place] tel:[phone] [facility] No Information 1 5-200 9 [facility] . [address], [address], [place], [place], [address], . tel:[phone] Referring Provider: Shady Root OD A, [address], [place], [place], [facility]. tel:[phone] lting Provider: Stephanie Ramírez, [address] [place] [address], [facility]. tel:[phone] [facility], [address], [place], [place], [address], [place] tel:[phone] [facility] No Information 1200 9 Doisy Edward. [address] , [address], [place], [address], [place]. tel:[phone] [facility], [address], [place], [place], [address], [place] tel:[phone] [facility] No Information 3 1-200 9 Root OD Shady. [address] , [address], [place], [address], [place]. tel:[phone] [facility], [address], [place], [place], [address], [place] tel:[phone] [facility] No Information Sep-2 6-200 8 Root OD Shady. [address], [address], [place], [address], [place]. tel:[phone] [facility], [address], [place], [place], [address], [place] tel:[phone] [facility] No Information Mar-3 0-200 7 [facility] . [address], [address], [place], [address], [place]. tel:[phone] Consulting Provider: Stephanie Ramírez, [address] [place] [address], [address]. tel:[phone] [facility], [address], [place], [place], [address], [place] tel:[phone] [facility] No Information Mar-3 0-200 7 [facility] . [address], [address], [place], [address], [place]. tel:[phone] Referring Provider: Farzad Dallas, [address] [place] [address], [address]. tel:[phone] lting Provider: Stephanie Ramírez, [address] [place] [address], [address]. tel:[phone] Family History Family Member Type Diagnosis Age At Onset No Information Payers Payer name Insurance type Covered constitution party ID Authoriza timati(s) Medicare [facility] [id number] [facility] CI [id number] Social History Type Description Quantity Date Captured Comments Sex Female Smoking Status No Information Chief Complaint And Reason For Visit No Information Reason For Referral Reason For Referral No Information History Of Present Illness Encounter Date Complaint History Of Prese nt Illness No Information Functional Status Date Functional Assessmen t No Information Instructions Date Instruction Additional Infor mation No Information Assessments Type Assessment Date No Information Patient Care Teams Name Effective Dates (start - stop) Status Members No Information
[2024-11-18] VITALS (10 sets, daily range): BP systolic 107–152; BP diastolic 71–94; PULSE 55–87; RESP 14–20; TEMP 36.6–36.9; O2SAT 87–100
--- NOTE | ~2024-11-18 | CT_ITS ---
Merissa Burciaga EXAMINATION: CT abdomen pelvis w con COMPARISON: None HISTORY: lower abd pain,RLQ pain, diarrhea TECHNIQUE: Axial images were obtained through the abdomen, pelvis post administration of IV contrast. Oral contrast was also administered. Coronal reconstruction images were obtained from the axial views. CT scan performed using dose optimization techniques including the following automated exposure control; adjustment of mA and/or kV; use of iterative reconstruction technique. Automatic exposure control was used to reduce radiation dose. Permanent radiation dose record is archived to PACS. FINDINGS: CT abdomen: LUNG BASES: The lung bases are clear. The visualized portions of the heart and pericardium are unremarkable. LIVER: Mild hepatic steatosis. Portal vein patent. No intrahepatic biliary duct dilatation. SPLEEN: Punctate calcified splenic granulomas.. KIDNEYS: Right Kidney: Unremarkable. No calculi. No hydronephrosis. Left Kidney: Unremarkable. No calculi. No hydronephrosis ADRENAL GLANDS: Unremarkable. PANCREAS: Unremarkable. GALLBLADDER/BILIARY: Unremarkable. No biliary dilatation. STOMACH AND ESOPHAGUS: Visualized stomach and esophagus within normal limits. BOWEL/MESENTERY: Moderate fecal content, no dilated large bowel. Mild diverticulosis. No colitis or diverticulitis. Appendix normal. Mesentery normal. No dilated small bowel loops. ADENOPATHY/RETROPERITONEUM: No lymphadenopathy. AORTA/VASCULATURE: Normal caliber aorta. FREE FLUID OR FREE AIR: None. CT pelvis: SOLID ORGANS/REPRODUCTIVE: Uterus is atrophic. No adnexal mass. BLADDER: Within normal limits. OSSEOUS STRUCTURES: No acute osseous abnormality.No suspicious lesions. OVERLYING SOFT TISSUES: Unremarkable. IMPRESSION: 1. No acute process Reviewed, dictated and finalized at location A. IMPRESSION: 1. No acute process
--- OUTSIDE RECORDS SUMMARY | 2024-11-18 16:27 | XMS_ITS | Encounter Summary ---
Author Organization [facility] Address [address] [place] [address] Care Team Providers Care Electrician Front Name Role Phone Andrzej Farrell MD Primary Care Provider [phone] Encounter Details Date Type Department Care Team (Late st Contact Info) Description 10/06/2016 Lab Requisition [facility] Services [address] [place] [facility] [address] [place] [address] [facility], External Provider [address] [place] [address] Social History Tobacco Use Types Packs/Day Years Used Date Smoking Tobacco: Never Alcohol Use Standard Drinks/Week Comments Not Asked 0 (1 standard drink = 0.6 oz pur e alcohol) Comments Unknown Sex and Gender Information Value Date Recorded Sex Assigned at Not on file 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 Gender Identity Not on file Sexual Orientation Not on file documented as of this encounter Plan of Treatment Not on file documented as of this encounter Procedures Procedure Name Priority Date/Time Associated Diagnosis Comments D-DIMER Stat 10/06/2016 1:01 PM CDT documented in this encounter Results * D-DIMER (10/06/2016 1:01 PM CDT) D-DIMER QUANT <0.27 <0.42 ug/mL FEU 10/06/2016 1:05 PM CDT [facility] Comment: The DIC reference range is [...] CDT 10/06/2016 1:02 PM CDT External Provider [facility] HEMATOLOGY ORDERABLES Fi nal Result [facility]# [id number] [address] [place] [address] documented in this encounter Visit Diagnoses Not on filedocumented in this encounter Care Teams Electrician Front Relationship Specialty Start Date End Date Andrzej Farrell MD [address] [place] [id number] PCP - General 08/31/02 documented as of this encounter
--- OUTSIDE RECORDS SUMMARY | 2024-11-18 16:27 | XMS_ITS | Encounter Summary ---
Author Organization [employer] Address [address] [place] [address] Care Team Providers Care Mule Packer Name Role Phone Andrzej Farrell MD Primary Care Provider [phone] Encounter Details Date Type Department Care Team (Late st Contact Info) Description 09/13/2002 Outpatient Historical [facility] Support Serv. (Adt Cardiology-[facility]) [address] 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
--- OUTSIDE RECORDS SUMMARY | 2024-11-18 16:27 | XMS_ITS | Encounter Summary ---
Author Organization [employer] Address 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
--- OUTSIDE RECORDS SUMMARY | 2024-11-18 16:27 | XMS_ITS | Encounter Summary ---
Author Organization [employer] Address 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
--- OUTSIDE RECORDS SUMMARY | 2024-11-18 16:27 | XMS_ITS | Clinical Summary ---
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 Gender Identity Not on file Sexual Orientation Not on file Last Filed Vital Signs Vital Sign Reading Time Taken Comments Blood Pressure 128/79 05/02/2015 12:17 PM WINDOWS AND DOORS INSTALLER rt wrist Pulse 60 05/02/2015 12:17 PM WINDOWS AND DOORS INSTALLER Temperature - - Respiratory Rate - - Oxygen Saturation - - Inhaled Oxygen Concentration - - Weight 74.8 kg (165 lb) 05/02/2015 12:17 PM WINDOWS AND DOORS INSTALLER Height 167.6 cm (5' 6) 05/02/2015 12:17 PM WINDOWS AND DOORS INSTALLER Body Mass Index 26.63 05/02/2015 12:17 PM WINDOWS AND DOORS INSTALLER Plan of Treatment Health Maintenance Due Date Last Done Comments DTAP/TDAP/TD VACCINES (1 - Tdap) 06/17/1962 PNEUMOCOCCAL VACCINE 50+ YEA RS (1 of 1 - PCV) 06/17/1993 ZOSTER VACCINE (1 of 2) 06/17/1993 RSV VACCINE (60+ or ) (1 - 1-dose 75+ series) 06/17/2018 OSTEOPOROSIS SCREENING 11/16/2019 5, 10/25/2012, 09/29/2010, Additional history exists INFLUENZA VACCINE (#1) 2024 Procedures Procedure Name Priority Date/Time Associated Diagnosis [...] MORE SITES Dictated from Location 1 ([facility]) HISTORY 69 year-old F with post menopausal symptoms. PROCEDURE: Planar images of the lumbar spine and hip(s) using a POS on CLOUD DEXA scanner for bone mineral density determination [...] MORE SITES Dictated from Location 1 ([facility]) HISTORY 69 year-old F with post menopausal symptoms. PROCEDURE: Planar images of the lumbar spine and hip(s) using a LUNGrow DEXA scanner for bone mineral density determination [...] MEDICARE PART A AND B Care Teams Claims Sorter Relationship Specialty Start Date End Date Andrzej Farrell MD [address] [place] [address] PCP - General 08/31/02
--- OUTSIDE RECORDS SUMMARY | 2024-11-18 16:27 | XMS_ITS | Patient Health Record ---
Author Organization [employer] Address [address] [facility] [facility] [address] [place] [place] [address] Support Name Relationship Address Phone Merissa Burciaga Guarantor Unknown [phone] Reason For Referral No Information Plan Of Treatment No Information Insurance Providers Payer Name Payer Address Payer Phone Subscriber Number Group Number Insured Name Patient Relationship to Insured Coverage Start Date Coverage End Date Medicare E2 [address] [address] [place] [address] [id number] Merissa Burciaga Self - patient is the insured 9 [employer] [facility] E2 [address] [place] [address] [id number] Merissa Burciaga Self - patient is the insured
--- OUTSIDE RECORDS SUMMARY | 2024-11-18 16:27 | XMS_ITS | Encounter Summary ---
Author Organization [employer] Address 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
--- OUTSIDE RECORDS SUMMARY | 2024-11-18 16:27 | XMS_ITS | Encounter Summary ---
Author Organization [facility] Address [address] [place] [address] Care Team Providers Care Solar Sales Consultant Name Role Phone Andrzej Farrell MD Primary Care Provider [phone] Encounter Details Date Type Department Care Team (Latest Contact Info) Description 09/06/2008 Outpatient Historical [facility] Ricky Olmos MD [address] [facility] [address] [place] [address] Special Screening for Osteoporosis Social History Tobacco Use Types Packs/Day Years Used Date Smoking Tobacco: Never Assessed Comments Unknown Sex and Gender Information Value Date Recorded Sex Assigned at Not on file 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 [place], [place] [address] Admit Date: 09/06/2008 MERISSA ROSALES Sex: F Admit Prov: RICKY OLMOS Date: 1945 Primary Care Prov: ANDRZEJ FARRELL CMRN: [id number] Room: [facility]: [id number] IMAGING SERVICES Ordering Prov: N/A Accession Number: [id number] Interpretation Examination: Bone Density Study (DEXA) Clinical [...] Procedure Note Maricruz Jones MD - 09/06/[address] [address] Admit Date: 09/06/2008 MERISSA ROSALES Sex: F Admit Prov: RICKY OLMOS Date: 1945 Primary Care Prov[id number] IM[facility] Ordering Prov: N/A Interpretation Examination: [...] osteoporosis documented in this encounter Care Teams Solar Sales Consultant Relationship Specialty Start Date End Date Andrzej Farrell MD [address] [place] [address] PCP - General 08/31/02 documented as of this encounter
--- OUTSIDE RECORDS SUMMARY | 2024-11-18 16:28 | XMS_ITS | Clinical Summary ---
Author Organization [facility] 2 Address [address] [place] [address] Care Team Providers Care Public Health Officer Name Role Phone Lawrence Banks MD Primary Care Provider [phone] Allergies Active Allergy Reactions Criticality Noted Date [...] next 30 min. 12 tablet 3 Active Additional Information Patient not taking.Reported on 10/16/2024 multivitamin (MULTI-DAY ORAL) Take by mouth Active levothyroxine (SYNTHROID) 88 mcg tablet Take 1 tablet (88 mcg total) by mouth public relations player before breakfast Active sertraline (ZOLOFT) 50 mg tablet Take 1 tablet (50 mg total) by mouth daily 4 Active acetaminophen (TYLENOL) 500 mg tablet Take by mouth every 6 (six) hours as needed 06/19/202 5 Active aspirin 81 mg enteric coated tablet Take 1 tablet (81 mg total) by mouth daily Active Active Problems Problem Noted Date Diagnosed Date Mixed hyperlipidemia 08/16/2023 Fatigue due to excessive exertion 07/05/2023 Essential hypertension 07/05/2023 Age-related osteoporosis wit hout current pathological fracture 10/13/2021 Disorder of bone 08/24/2016 Osteopenia 07/08/2015 Encounters Date Type Department Care Team Description 10/16/2024 9:00 AM CDT Office Visit [facility] Cardiology [address] [place] [address] Leigh Ann Chavez MD Essential hypertension (Primary Dx); Mixed hyperlipidemia from Last 3 Months Surgical History Surgery Date Site/Laterality Comments TUBAL LIGATION 1985 CATARACT EXTRACTION February 2023 Medical History Medical History Date Comments Syncope Bradycardia Hyperlipidemia Thyroid disease Hypertension Family History Medical History Relation Name Comments Heart failure Mother Osteoporosis Mother Family history of osteoporosis - (Added by TW Conv) Hip fracture Neg Hx Relation Name Status Comments Father Mother Social History Tobacco Use Types Packs/Day Years Used Date Smoking Tobacco: Never Smokeless Tobacco: Never Tobacco Cessation:Counseling Given: Not Answered Personal Safety Answer Date Recorded Have you ever been in or are you currently in a harmful physical or emotional relationship or is someone making you feel afraid or unsafe? 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 Gender Identity Female 06/28/2023 12:09 PM CDT Sexual Orientation Not on file Obstetrics History Last Filed Vital Signs Vital Sign Reading Time Taken Comments Blood Pressure 136/78 10/16/2024 9:03 AM CDT Pulse 58 10/16/2024 9:03 AM CDT Temperature 36.9 C (98.4 F) 09/10/2020 1:56 PM CDT Respiratory Rate 16 08/04/2023 12:35 PM CDT Oxygen Saturation 98% 10/16/2024 9:03 AM CDT Inhaled Oxygen Concentration - - Weight 82.1 kg (181 lb) 10/16/2024 9:03 AM CDT Height 165.1 cm (5' 5) 10/16/2024 9:03 AM CDT Body Mass Index 30.12 10/16/2024 9:03 AM CDT Plan of Treatment Health Maintenance Due Date Last Done Comments Depression Screening 1945 DTaP/Tdap/Td Vaccine (1 - Tdap) 06/17/1954 Hepatitis B Screening 06/17/1961 Pneumococcal vaccine 65+ (1 of 1 - PCV) 06/17/1993 Zoster Vaccine (1 of 2) 06/17/1993 Well Visit 65+ 06/17/2008 Osteoporosis Screening-Bone Density Scan 10/08/2023 10/07/2021, 09/10/2020, 09/11/2019, Additional history exists Fall Risk Assessment 08/03/2024 08/04/2023 Influenza Vaccine (#1) 2024 12/15/2018, 2017 Procedures Procedure Name Priority Date/Time Associated Diagnosis [...] Bone mineral density was performed on a H[employer] Discovery Densitometer. Based on machine cross-calibration and [...] by the International Society of Clinical Densitometry. [id number] Joaquin Zuniga MD IMG DXA PROCEDURES Final Result from Last 3 Months or Most Recently Relevant to Health Maintenance Insurance MEDICARE [facility] MEDICARE [facility] Care Teams Public Health Officer Relationship Specialty Start Date End Date Lawrence Banks MD [address] [place] [address] [address] PCP - General Family Medicine 07/05/23
[2024-11-18 17:59] LABS: Hematocrit 43.3 % (37.0-47.0); Hemoglobin 13.9 g/dL (12.0-15.0); Immature Granulocyte Percent A 0.4 % (0-0.5); Lymphocytes Absolute Auto 1.67 K/mm3 (0.9-3.2); Mean Corpuscular HGB Conc 32.1 g/dl (32-36); Mean Corpuscular Hemoglobin 30.6 pg (26-34); Mean Corpuscular Volume 95.4 fl (80-100); Nucleated Red Blood Cells Absolute Auto 0.000 K/mm3 (0.0-0.012); Nucleated Red Blood Cells Perc 0.0 % (0.0-0.2); Platelet Count Result 264 k/mm3 (150-375); Red Blood Count 4.54 M/mm3 (4.2-5.4); White Blood Count 7.2 K/mm3 (4.5-10.0)
[2024-11-18 18:08] LABS: Alanine Aminotransferase 22 U/L (6-35); Albumin Level 4.1 g/dL (3.5-5.1); Alkaline Phosphatase 120 U/L (38-126); Anion Gap 8 mmol/L (4-12); Aspartate Amino Transferase 30 U/L (14-36); Bilirubin,Total 0.4 mg/dL (0.2-1.3); Blood Urea Nitrogen 17 mg/dL (7-17); Calcium 9.3 mg/dL (8.4-10.2); Carbon Dioxide 25 mmol/L (22-30); Chloride 105 mmol/L (98-107); Estimated CRCL calculation 52 ml/min; Estimated Glomerular Filt Rate > 60; Glucose 131 mg/dL (65-110); Lipase 81 U/L (23-300); Potassium 4.3 mmol/L (3.4-5.0); Sodium 138 mmol/L (137-145); Total Protein 7.5 g/dL (6.3-8.2)
--- NOTE | 2024-11-18 19:31 | ED.ABDPAIN ---
HPI - Abdominal Pain General Chief Complaint: Abdominal Pain Stated Complaint: abd pain Time Seen by Provider: 11/18/24 18:01 Source: patient Mode of arrival: ambulatory Limitations: no limitations History of Present Illness HPI narrative: Patient is an 79-year-old female who presents the ED with report of lower abdominal pain. Patient reports she 1st developed diarrhea and lower abdominal pain last . She has been taking Pepto-Bismol on reports that the diarrhea has since improved, but the pain has persisted. Pain became worse yesterday into today. Denies nausea, vomiting, fevers, rectal bleeding. Denies history of similar pain. Related Data Home Medications ?Medication ?Instructions ?Recorded ?Confirmed ?Last Taken ?Type multivitamin 1 tablet PO DAILY 07/24/19 10/30/24 Unknown History cetirizine 10 mg capsule (Zyrtec) 10 mg PO DAILY 06/11/21 10/30/24 Unknown History Allergies Allergy/AdvReac Type Severity Reaction Status Date / Time prednisone AdvReac Unknown Flush Verified 11/18/24 18:39 purple rxn Review of Systems Review of Systems: All systems reviewed & are unremarkable except as noted in HPI. All systems reviewed & are unremarkable except as noted in HPI and below PMFSH Past Medical History Medical History Glaucoma Obesity Belching Bloating symptom Bronchitis Tietze's disease Stress Essential (primary) hypertension Gastro-esophageal reflux disease without esophagitis Vitamin D deficiency, unspecified Surgical History Surgical History Hx of cataract surgery H/O breast biopsy (~2001) Hx of tubal ligation (~1981) Family History Family History Father Hypertension Mother Hypertension Grandparent Cerebrovascular accident Carcinoma of colon, Onset Age: 58 Social History Social History Smoking status: Never smoker Alcohol intake: former Drinks per week: 0 Substance use: never Substance use type: does not use Lack of Transportation: No Lack of Food: Never True Current Housing: I Have Housing Concerned About Future Housing: No Difficulty Paying Gas/Electric Bills: No Difficulty Paying for Meds: No Currently Unemployed: No Education: High School Diploma/GED Difficulty w/ Childcare or Family Care: No Living arrangements: with family Additional living arrangements comments: Occupation/Education: retired Gender identity (if verbalized by the patient): Female Sexual Orientation (if Verbalized by the Patient): Straight or Heterosexual Spiritual care concerns: No Exam Narrative: GENERAL: Well appearing, well-nourished, non-toxic, in no acute distress. HEAD: Normocephalic, atraumatic. RESPIRATORY: Airway patent, respirations nonlabored. Clear to auscultation bilaterally, no rales, rhonchi, wheezing. CARDIOVASCULAR: Regular rate and rhythm without murmurs, rubs, or gallops. ABDOMINAL: Soft, mild diffuse tenderness throughout lower abdomen and right upper and lower abdomen, nondistended. Normoactive BS. MUSCULOSKELETAL: Moves all extremities. No gross deformities. SKIN: Warm, dry, normal color. NEURO: A&O X3. Speech clear. Cranial nerves II-XII grossly intact. Steady gait. No ataxic movements. PSYCHIATRIC: Appropriate mood and affect. Normal interaction. Course Vital Signs Vital signs: Vital Signs Temperature 98.1 F 11/18/24 16:26 Pulse Rate 56 L 11/18/24 16:26 Respiratory Rate 16 11/18/24 16:26 Blood Pressure 132/72 11/18/24 16:26 Pulse Oximetry 96 11/18/24 16:26 Temperature 98 F 11/18/24 22:44 Pulse Rate 55 L 11/18/24 22:44 Respiratory Rate 17 11/18/24 22:44 Blood Pressure 152/71 H 11/18/24 22:44 Pulse Oximetry 95 11/18/24 22:44 Oxygen Delivery Room Air 11/18/24 17:45 MDM - Abdominal Pain MDM Narrative Medical decision making narrative: Patient presented to ED with several day history of lower abdominal pain, recent diarrhea which has since improved. Vital signs are stable upon arrival. Patient in no acute distress. Cbc without leukocytosis or anemia. CMP is unremarkable. Stable electrolytes. Stable kidney function. Normal LFTs and lipase. UA with 2+ leuk esterase. Did not reflex to show amount of WBC. Concerning for infection. Will cover for such. Sent for cx. CT scan of abdomen/pelvis was obtained and without significant abnormalities. Diverticulosis, no evidence of diverticulitis. No bowel obstruction. Discussed lab and imaging findings with patient, overall reassuring workup, antibiotics for UTI. Discussed possibility of viral gastroenteritis, continued management of such including dietary modifications. Feel patient is safe for discharge home at this time. Recommended close follow-up with PCP for further evaluation. Given strict return precautions. Patient in agreement with plan. Discharged in stable condition. Medical Records Attestation: I reviewed the patient's medical records. Lab Data Attestation: I reviewed the patient's lab results. 11/18/24 17:52 11/18/24 17:52 Labs: Lab Results 11/18/24 11/18/24 Range/Units 17:52 18:30 WBC 7.2 (4.5-10.0) K/mm3 RBC 4.54 (4.2-5.4) M/mm3 Hgb 13.9 (12.0-15.0) g/dL Hct 43.3 (37.0-47.0) % MCV 95.4 (80-100) fl MCH 30.6 (26-34) pg MCHC 32.1 (32-36) g/dl RDW 12.5 (11.5-14.5) % Plt Count 264 (150-375) k/mm3 MPV 9.2 (7.4-10.4) fl Immature Gran % (Auto) 0.4 (0-0.5) % Neut % (Auto) 56.4 (45.5-73.1) % Lymph % (Auto) 23.2 (18.3-44.2) % [place] % (Auto) 15.5 H (2.6-8.5) % Eos % (Auto) 3.5 (0-4.4) % Baso % (Auto) 1.0 (0.2-1.2) % Lymph # (Auto) 1.67 (0.9-3.2) K/mm3 [place] # (Auto) 1.1 H (0.1-0.6) K/mm3 Eos # (Auto) 0.3 (0-0.3) K/mm3 Baso # (Auto) 0.1 (0.0-0.1) K/mm3 Abs Immat Gran (auto) 0.03 (0.00-0.031) K/mm3 Absolute Neuts (auto) 4.1 (1.3-6.7) K/mm3 Absolute Nucleated RBC 0.000 (0.0-0.012) K/mm3 Nucleated RBC % 0.0 (0.0-0.2) % Sodium 138 (137-145) mmol/L Potassium 4.3 (3.4-5.0) mmol/L Chloride 105 (98-107) mmol/L Carbon Dioxide 25 (22-30) mmol/L Anion Gap 8 (4-12) mmol/L BUN 17 (7-17) mg/dL Creatinine 0.78 (0.7-1.0) mg/dL Estim Creat Clear Calc 52 ml/min Estimated GFR > 60 (59 - ) Glucose 131 H (65-110) mg/dL Calcium 9.3 (8.4-10.2) mg/dL Total Bilirubin 0.4 (0.2-1.3) mg/dL AST 30 (14-36) U/L ALT 22 (6-35) U/L Alkaline Phosphatase 120 (38-126) U/L Total Protein 7.5 (6.3-8.2) g/dL Albumin 4.1 (3.5-5.1) g/dL Lipase 81 (23-300) U/L Urine Color Dark yellow (Yellow) Urine Appearance Clear (Clear) Urine pH 5.5 (5.0-9.0) Ur Specific [place] 1.028 (1.001-1.035) Urine Protein Trace (Negative) mg/dL Urine Glucose (UA) Negative (Negative) mg/dL Urine Ketones Negative (Negative) mg/dL Ur Blood (Man) Negative (Negative) Urine Nitrate Negative (Negative) Urine Bilirubin 1+ H (Negative) Urine Urobilinogen 1.0 (<2.0) mg/dL Leukocyte Esterase Rfl 2+ H (Negative) CATIA/UL Imaging Data Attestation: I personally reviewed and interpreted this imaging study as follows: Radiologist's impression: STAT RAD CT abd/pelvis: Impression: The solid organs are within normal limits. No bowel obstruction. Normal appendix. Diverticulosis. No fracture. No incidental findings. Discharge Plan Discharge Clinical Impression: Lower abdominal pain, Abnormal urinalysis Diarrhea Qualifiers: Diarrhea type: unspecified type Qualified Code(s): R19.7 - Diarrhea, unspecified Patient Disposition: Home Condition: Stable Instructions: Antibiotic Form, Urinary Tract Infection in Women (ED), Gastroenteritis (ED), Abdominal Pain (ED) Additional Instructions: Take antibiotics as prescribed for potential urinary tract infection. Follow-up with your primary care doctor for further evaluation and urine culture results. Continue Tylenol as needed for pain. Utilize zofran as needed for further nausea. Increase fluid intake. Recommend electrolyte rich fluids, gatorade, pedialyte, body armour. Recommend clear liquids or bland diet until symptoms improve, such as bananas, rice, applesauce, toast, or crackers. Return to the ED if you experience worsening or severe symptoms, unable to keep down food or drink, severe pain, fevers, rectal bleeding, vomiting blood, or any other symptoms of concern. Patient Language: Turkmen Prescriptions: New cephalexin 500 mg capsule 500 mg PO Q6H 7 Days Qty: 28 0RF ondansetron 4 mg tablet,disintegrating 4 mg PO Q8H PRN (Reason: nausea and vomiting) Qty: 15 0RF No Action multivitamin Tablet 1 tablet PO DAILY (DME) spacer for inhaler See Rx Instructions .Route .MEDSUPPLY Qty: 1 0RF Rx Instructions: As directed Zyrtec 10 mg Capsule 10 mg PO DAILY acetaminophen 500 mg capsule 500 mg PO Q6H PRN (Reason: pain) Qty: 14 0RF atorvastatin 20 mg tablet 20 mg PO DAILY Qty: 90 3RF levothyroxine [Synthroid] 88 mcg tablet 88 mcg PO DAILY Qty: 90 3RF sertraline 50 mg tablet 50 mg PO DAILY Qty: 90 1RF atenolol 25 mg tablet 25 mg PO DAILY Qty: 90 1RF Follow-up/Referrals: Lawrence Banks MD [Primary Care Provider, [facility]] Time of Disposition: 22:38
[2024-11-18 19:38] LABS: Add Urine Microscopic? YES; Appearance Urine Clear (Clear); Glucose Urine UA Negative (Negative); Leukocyte Esterase Ur 2+ LEU/UL (Negative); Nitrate Urine Negative (Negative); Specific Grav Ur 1.028 (1.001-1.035)
[2024-11-19 09:55] LABS: Need Manual Microscopic Reviewed; Non Pathogenic Casts 0-2
== END 2024-11-18 23:02 | disposition home or self-care (01) ==
PROVIDERS: Emergency Medicine; Emergency Provider Physician Assistant; PCP Family Medicine
DX: R19.7 Diarrhea, unspecified (principal); R10.30 Lower abdominal pain, unspecified; R82.998 Other abnormal findings in urine; I10 Essential (primary) hypertension; K21.9 Gastro-esophageal reflux disease without esophagitis
CPT/HCPCS: 36415; 74177; 80053; 81001; 83690; 85025; 87086; 99284; Q9967

== ENCOUNTER 2025-01-26 08:54 | Outpatient (CLI) | payer MEDICARE, SELFPAY ==
--- OUTSIDE RECORDS SUMMARY | 2025-01-26 09:00 | XMS_ITS | Encounter Summary ---
Author Organization [facility] Address 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
--- OUTSIDE RECORDS SUMMARY | 2025-01-26 09:00 | XMS_ITS | Encounter Summary ---
Author Organization [facility] Address [address] [place] [address] Care Team Providers Care Field Cane Scale Clerk Name Role Phone Andrzej Farrell MD Primary Care Provider [phone] Encounter Details Date Type Department Care Team (Latest Contact Info) Description 09/06/2008 Outpatient Historical [facility] Ricky Olmos MD [address] [facility] [address] [place] [address] Special Screening for Osteoporosis Social History Tobacco Use Types Packs/Day Years Used Date Smoking Tobacco: Never Assessed Comments Unknown Sex and Gender Information Value Date Recorded Sex Assigned at Not on file 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 [place], [place] [address] Admit Date: 09/06/2008 MERISSA ROSALES Sex: F Admit Prov: RICKY OLMOS Date: 1945 Primary Care Prov: ANDRZEJ FARRELL CMRN: [id number] Room: [facility]: [id number] IMAGING SERVICES Ordering Prov: N/A Accession Number: [id number] Interpretation Examination: Bone Density Study (DEXA) Clinical [...] Procedure Note Maricruz Jones MD - 09/06/2008 [facility] [address] [place], [place] [address] Admit Date: 09/06/2008 BOBBYMERISSA COLLINS Sex: F Admit Prov: RICKY OLMOS Date: 1945 Primary Care Prov: ANDRZEJ FARRELL CMRN: [id number] Room: [facility] SSN: [id number] IMAGING SERVICES Ordering Prov: N/A Interpretation Examination: [...] signed by: MARICRUZ JONES 09/06/2008 10:33 us Ricky Olmos MD DIAGNOSTIC IMAGING ORDERABLES Fi nal Result documented in this encounter Visit Diagnoses Diagnosis Special screening for osteoporosis documented in this encounter Care Teams Field Cane Scale Clerk Relationship Specialty Start Date End Date Andrzej Farrell MD [address] [place] [address] PCP - General 08/31/02 documented as of this encounter
--- OUTSIDE RECORDS SUMMARY | 2025-01-26 09:00 | XMS_ITS | Encounter Summary ---
Author Organization [facility] Address [address] [place] [address] Care Team Providers Care Chief Of Harbor Patrol Name Role Phone Andrzej Farrell MD Primary Care Provider [phone] Encounter Details Date Type Department Care Team (Late st Contact Info) Description 09/13/2002 Outpatient Historical [facility] Support Serv. (Adt Cardiology[facility]) [address] 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
--- OUTSIDE RECORDS SUMMARY | 2025-01-26 09:00 | XMS_ITS | Clinical Summary ---
Author Organization [employer] Address [address] [place] [address] [place] [address] Phone Care Team Providers Care Platen Press Operator Apprentice Name Role Phone Andrzej Farrell MD Primary Care Provider [phone] Allergies Active Allergy Reactions Criticality Noted Date [...] on file Legal Sex Female 4:53 AM SPECIAL DELIVERY CLERK Gender Identity Not on file Sexual Orientation Not on file Last Filed Vital Signs Vital Sign Reading Time Taken Comments Blood Pressure 128/79 05/02/2015 12:17 PM SPECIAL DELIVERY CLERK rt wrist Pulse 60 05/02/2015 12:17 PM SPECIAL DELIVERY CLERK Temperature - - Respiratory Rate - - Oxygen Saturation - - Inhaled Oxygen Concentration - - Weight 74.8 kg (165 lb) 05/02/2015 12:17 PM SPECIAL DELIVERY CLERK Height 167.6 cm (5' 6) 05/02/2015 12:17 PM SPECIAL DELIVERY CLERK Body Mass Index 26.63 05/02/2015 12:17 PM SPECIAL DELIVERY CLERK Plan of Treatment Health Maintenance Due Date [...] OR MORE SITES Dictated from Location 1 ([facility]) HISTORY 69 year-old F with post menopausal symptoms. PROCEDURE: Planar images of the lumbar spine and hip(s) using a CrayonPixel DEXA scanner for bone mineral density determination [...] placed in [facility] of [facility] EMR. IMPRESSION Osteopenic BMD. Lumbar Spine T-score: [...] OR MORE SITES Dictated from Location 1 ([facility]) HISTORY 69 year-old F with post menopausal symptoms. PROCEDURE: Planar images of the lumbar spine and hip(s) using a LUNProcessUnity DEXA scanner for bone mineral density determination [...] placed in Imaging [facility] of [facility] EMR. IMPRESSION Osteopenic BMD. Lumbar Spine T-score: [...] thereafter Dictated by Dr. Otoniel Hart, DO Ricky Tapia MD DIAGNOSTIC IMAGING ORDERABLES Fi nal Result from Last 3 Months or Most Recently Relevant to Health Maintenance Insurance MEDICARE PART A AND B Care Teams Platen Press Operator Apprentice Relationship Specialty Start Date End Date Andrzej Farrell MD [address] [place] [address] PCP - General 08/31/02
--- OUTSIDE RECORDS SUMMARY | 2025-01-26 09:00 | XMS_ITS | Clinical Summary ---
Author Organization [facility] 2 Address [address] [facility] [place] [address] Care Team Providers Care Slab Lifting Engineer Name Role Phone Lawrence Banks MD Primary Care Provider [phone] Allergies Active Allergy Reactions Criticality Noted Date [...] 1 tablet (88 mcg total) by mouth head start coordinator before breakfast Active sertraline (ZOLOFT) 50 mg [...] 10/13/2021 Disorder of bone 08/24/2016 Osteopenia 07/08/2015 Surgical History Surgery Date Site/Laterality Comments TUBAL [...] on file Legal Sex Female 2:32 AM BEVELLER OPERATOR Gender Identity Female 06/28/2023 12:09 PM [...] by the International Society of Clinical Densitometry. [id number] Joaquin Zuniga MD IMG DXA PROCEDURES Final Result from Last 3 Months or Most Recently Relevant to Health Maintenance Insurance MEDICARE [facility] MEDICARE [facility] Care Teams Slab Lifting Engineer Relationship Specialty Start Date End Date Lawrence Banks MD [facility] [facility] [address] [place] [address] PCP - General Family Medicine 07/05/23
--- OUTSIDE RECORDS SUMMARY | 2025-01-26 09:00 | XMS_ITS | Encounter Summary ---
Author Organization [facility] Address 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
--- OUTSIDE RECORDS SUMMARY | 2025-01-26 09:00 | XMS_ITS | Encounter Summary ---
Author Organization [facility] Address 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
--- OUTSIDE RECORDS SUMMARY | 2025-01-26 09:00 | XMS_ITS | Patient Health Record ---
Author Organization [employer] Address [address] [place]. [address] [place] [address] Support Name Relationship Address Phone Merissa Burciaga Guarantor Unknown [phone] Reason For Referral No Information Plan Of Treatment No Information Insurance Providers Payer Name Payer Address Payer Phone Subscriber Number Group Number Insured Name Patient Relationship to Insured Coverage Start Date Coverage End Date Medicare E2 [address] [address] [place] [address] [id number] Merissa Burciaga Self - patient is the insured [address] [facility] E2 [address] [place] [address] [id number] Merissa Burciaga Self - patient is the insured
--- OUTSIDE RECORDS SUMMARY | 2025-01-26 09:00 | XMS_ITS | Encounter Summary ---
Author Organization [facility] Address [address] [place] [address] Care Team Providers Care Sane Nurse Name Role Phone Andrzej Farrell MD Primary Care Provider [phone] Encounter Details Date Type Department Care Team (Late st Contact Info) Description 10/06/2016 Lab Requisition [facility] Laboratory Services [facility] [address] [place] [address] [facility], External Provider [address] [place] [address] Social History Tobacco Use Types Packs/Day Years Used Date Smoking Tobacco: Never Alcohol Use Standard Drinks/Week Comments Not Asked 0 (1 standard drink = 0.6 oz pur e alcohol) Comments Unknown Sex and Gender Information Value Date Recorded Sex Assigned at Not on file Legal 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 Comment: The DIC reference range is not [...] CDT 10/06/2016 1:02 PM CDT External Provider [facility] HEMATOLOGY ORDERABLES Fi nal Result [facility]# [id number] [address] [facility] [address] [place] [address] documented in this encounter Visit Diagnoses Not on filedocumented in this encounter Care Teams Sane Nurse Relationship Specialty Start Date End Date Andrzej Farrell MD [address] [place] [address] PCP - General 08/31/02 documented as of this encounter
[2025-01-26 11:47] LABS: Cholesterol 194 mg/dL (0-200); HDL Direct 49 mg/dL; Triglycerides 274 mg/dL (<150)
[2025-01-26 12:18] LABS: Hemoglobin A1C 5.9 % (<5.7)
== END 2025-01-26 08:55 | disposition home or self-care (01) ==
LOC: ANHGOSHLAB 08:54
PROVIDERS: PCP Family Medicine; Visit Provider Student in an Organized Health Care Education/Training Program
DX: R73.03 Prediabetes (principal); E78.2 Mixed hyperlipidemia
CPT/HCPCS: 36415; 80061; 83036